=== PATIENT | male | born 1990 | race Caucasian/White ===

== ENCOUNTER 2023-09-12 10:16 | Emergency (ER) | payer OTHER, SELFPAY ==
[2023-09-12 10:21] VITALS: BP 136/76; PULSE 97; RESP 18; TEMP 36.6; O2SAT 100; BMI 29.6
[2023-09-12] MEDS: KETOROLAC TROMETHAMINE 60 MG/2 ML VIAL IM (10:35)
--- NOTE | 2023-09-12 10:35 | ED.BACK1 ---
HPI - Back Pain/Injury General Chief Complaint: Back Pain/Injury Stated Complaint: BACK PAIN SEVERAL INJURIES Time Seen by Provider: 09/12/23 10:22 Source: patient Mode of arrival: walk-in Limitations: no limitations History of Present Illness HPI Narrative: 33-year-old male presents for ongoing low back pain. He has had it for years. He states he has a bulging disc at L4. He has been having trouble getting into see a primary care doctor and [facility] He had an appointment today but it was canceled. No new injury and it does not seem to radiate. His states that sometimes she feels lumps under his skin. Related Data Previous Rx's Medication Instructions Recorded etodolac 400 mg tablet 400 mg PO Q8H PRN pain #20 tabs 09/12/23 methocarbamol 750 mg tablet 750 mg PO Q8H PRN pain #20 tabs 09/12/23 Allergies Allergy/AdvReac Type Severity Reaction Status Date / Time pneumococcal vaccine Allergy Unknown Verified 09/12/23 10:21 Review of Systems ROS Narrative A ten point review of systems is negative except as noted above. Exam Narrative Exam Narrative: Nurses note and vital signs reviewed and patient is not hypoxic. General: The patient appears well and in no apparent distress. Patient appears uncomfortable Skin: Warm, dry, no pallor noted. There is no rash noted. Head: Normocephalic, atraumatic Eye: Normal conjunctiva, no drainage Ears, Nose, Mouth, and Throat: oral mucosa is moist. Nares patent. Cardiovascular: Regular Rate and Rhythm Respiratory: Patient is in no distress, no accessory muscle use, lungs are clear to auscultation, no wheezing, rales or rhonchi Back: No bruise rash or erythema. Palpation does not show any discrete cysts or nodules. He has palpable areas of the muscle which he and his describe as the lumps. GI: Soft and nontender Musculoskeletal: The patient has no evidence of calf tenderness, no pitting edema, symmetrical pulses noted bilaterally Neurological: A&O, normal speech Psychiatric: Cooperative Constitutional Vital Signs, click to edit/add: Last Vital Signs Temp 97.8 F 09/12/23 10:21 Pulse 97 H 09/12/23 10:21 Resp 18 09/12/23 10:21 BP 136/76 09/12/23 10:21 Pulse Ox 100 09/12/23 10:21 O2 Del Method Room Air 09/12/23 10:21 Course Vital Signs Vital signs: Vital Signs Temperature 97.8 F 09/12/23 10:21 Pulse Rate 97 H 09/12/23 10:21 Respiratory Rate 18 09/12/23 10:21 Blood Pressure 136/76 09/12/23 10:21 Pulse Oximetry 100 09/12/23 10:21 Oxygen Delivery Method Room Air 09/12/23 10:21 Temperature 97.8 F 09/12/23 10:21 Pulse Rate 97 H 09/12/23 10:21 Respiratory Rate 18 09/12/23 10:21 Blood Pressure 136/76 09/12/23 10:21 Pulse Oximetry 100 09/12/23 10:21 Oxygen Delivery Method Room Air 09/12/23 10:21 MDM - Back Pain/Injury MDM Narrative Medical decision making narrative: He will be treated symptomatically and was given referral to PCP. He does not require emergent imaging. Treatment diagnosis and follow-up were discussed with the patient. Differential Diagnosis Differential diagnosis: Likely strain of lumbar region and other (Degenerative disc disease) Discharge Plan Discharge Chief Complaint: Back Pain/Injury Clinical Impression: Low back pain Patient Disposition: Home, Self-Care Time of Disposition Decision: 10:33 Condition: Good Mode of Transportation: Private Vehicle Prescriptions / Home Meds: New etodolac 400 mg tablet 400 mg PO Q8H PRN (Reason: pain) Qty: 20 0RF methocarbamol 750 mg tablet 750 mg PO Q8H PRN (Reason: pain) Qty: 20 0RF Instructions: Acute Low Back Pain (ED) Stand Alone Forms: Portal Instructions
== END 2023-09-12 10:39 | disposition home or self-care (01) ==
LOC: ER 10:47
PROVIDERS: Emergency Provider Emergency Medicine
DX: M54.50 Low back pain, unspecified (principal)
CPT/HCPCS: 96372; 99284; J1885

== ENCOUNTER 2023-12-01 15:19 | Observation (INO) | payer MEDICAID, SELFPAY ==
[2023-12-01 15:32] VITALS: BP 132/88; PULSE 101; TEMP 36.6; O2SAT 98; BMI 31.9
--- NOTE | 2023-12-01 15:55 | CT_ITS ---
[place] [id number] Patient Name: JANINA PEÑA MRN: [id number] date: 1990 Sex: M Assigned Patient Location: ER Current Patient Location: Accession/Order Number: [id number] Exam Date: 12/01/2023 16:17 Report Date: 12/01/2023 16:50 At the request of: RUFINO STOVER Procedure: CT lumbar spine wo con EXAM: CT lumbar spine wo con HISTORY: Chronic back pain. COMPARISON: None. TECHNIQUE: Axial CT scans of the lumbar spine were obtained without contrast. MPR images were obtained. Dose reduction techniques were achieved by using: automated exposure control and/or adjustment of mA and /or kV according to patient size and/or use of iterative reconstruction technique. FINDINGS: From T12 to L3, no abnormality. 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 Either limbus vertebra versus an old nonunion fracture of the left paramedian anterior aspect of the L4 inferior endplate. Mild posterior disc bulge and slightly decreased disc height are present. At L4-L5, a small right paracentral posterior disc protrusion. Visualized SI joints appear normal. The visualized retroperitoneum shows no adenopathy. 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 Either L4 limbus vertebra versus an old nonunion fracture of the left paramedian anterior aspect of the L4 inferior endplate. At L4-L5, a small right paracentral posterior disc protrusion. Electronically authenticated by: BRENT FELIX Date: 12/01/2023 16:50
[2023-12-01] MEDS: HYDROMORPHONE HCL 0.5 MG/0.5 ML SYRINGE IV ×2 (16:12→17:18)
[2023-12-01] MEDS: DIAZEPAM 5 MG TABLET PO (16:12)
[2023-12-01] MEDS: KETOROLAC TROMETHAMINE 30 MG/ML VIAL 15 MG IVP (16:13)
--- NOTE | 2023-12-01 16:17 | ED.BACK1 ---
HPI HPI - Back Pain/Injury General Chief Complaint: Back Pain/Injury Stated Complaint: Back Pain Time Seen by Provider: 12/01/23 15:46 Source: patient and family () Mode of arrival: Wheelchair Limitations: no limitations History of Present Illness HPI Narrative: 3-year-old male presents to the emergency department with his for complaint of low back pain. This has been an ongoing problem for the patient. This has been more so since September and over the past 5 days to where he has not been able to get out of bed. Locating pain throughout the lumbar spine. He has some mild discomfort in his legs, numbness, tingling in his great toes. Does feel some mild numbness in his legs. He attempted to get out of bed today and when he bore weight, the pain markedly increased to where his legs felt like they buckled. He did have a CT scan performed in March 2023 showing central canal narrowing at L4-5. He was told in September and that there was an L3 fracture. Denies any fever, history of IV drug use, motor or sensory changes, loss of bowel or bladder control, saddle anesthesias. Quality:?as above Severity:?severe Timing:?ongoing, worsening Context: Normal setting and activity? Modifying factors:?pain worse with movement. Associated symptoms: as above Related Data Home Medications ?Medication ?Instructions ?Recorded ?Confirmed cyclobenzaprine 5 mg tablet 5 mg PO BID 12/01/23 12/01/23 gabapentin 300 mg capsule 300 mg PO BID 12/01/23 12/01/23 paroxetine HCl 10 mg tablet 20 mg PO DAILY 12/01/23 12/01/23 prednisone 20 mg tablet 40 mg PO BID 12/01/23 12/01/23 trazodone 50 mg tablet 50 mg PO BEDTIME 12/01/23 12/01/23 Allergies Allergy/AdvReac Type Severity Reaction Status Date / Time pneumococcal vaccine Allergy Unknown Verified 09/12/23 10:21 Opioid HPI Opioid Management Most Recent Opioid Data: Last Pain Scale 5 09/12/23 10:25 Last MAR Pain Assessment 12/01/23 17:18 Review of Systems ROS Narrative CONST: Denies fever, chills GI: Denies abd pain, nausea, loss of bowel control : Denies loss of bladder control, hematuria MS: + myalgias, back pain.? Denies arthralgia SKIN: Denies color change, swelling NEURO: Denies numbness, paresthesias, weakness Exam Narrative Exam Narrative: Vital signs noted Nurses notes reviewed CONST: Nontoxic, uncomfortable appearing, well nourished, in no distress.? No diaphoresis.?? HENT: normocephalic, atraumatic, CV: 2+ palpable DP pulses bilat GI: soft, nontender : no CVA tenderness MS: No identifiable spinous process or paraspinal muscle tenderness throughout L-S region.? Locates pain throughout the lumbar spine. + increase in pain with SLE bilaterally. No tenderness over the SI joint.? There is no discoloration, edema, crepitus, instability, step off.? DF, PF, hallux DF equal and strong bilat NEURO: sensory intact, 2+ Patella and Achilles reflexes SKIN: no rash, erythema, warm, dry PSYCHIATRIC: normal mood, affect Constitutional Vital Signs, click to edit/add: Last Vital Signs Temp 97.8 F 12/01/23 15:32 Pulse 101 H 12/01/23 15:32 Resp 18 12/01/23 15:32 BP 132/88 12/01/23 15:32 Pulse Ox 98 12/01/23 15:32 O2 Del Method Room Air 12/01/23 15:32 Course Consultations Consultation #1: Dr. Lindsey who will be on consult for spine. Requests MRI in AM Time: 17:39 Consultation #2: Patient discussed with Dr. Mcgovern who is agreeable with admission. Time: 17:53 Vital Signs Vital signs: Vital Signs Temperature 97.8 F 12/01/23 15:32 Pulse Rate 101 H 12/01/23 15:32 Respiratory Rate 18 12/01/23 15:32 Blood Pressure 132/88 12/01/23 15:32 Pulse Oximetry 98 12/01/23 15:32 Oxygen Delivery Method Room Air 12/01/23 15:32 Temperature 97.8 F 12/01/23 15:32 Pulse Rate 101 H 12/01/23 15:32 Respiratory Rate 18 12/01/23 15:32 Blood Pressure 132/88 12/01/23 15:32 Pulse Oximetry 98 12/01/23 15:32 Oxygen Delivery Method Room Air 12/01/23 15:32 MDM - Back Pain/Injury MDM Narrative Medical decision making narrative: This is a pleasant 33-year-old gentleman who presents to the emergency department with complaint of back pain. Locating pain in the lumbar region. Has had some radiation, numbness. Having numbness and tingling in his great toes. Ongoing back problems. Had CT scan showing pars defects, fracture in March 2023. Progressively worsening since September, has not been able to work. Over the past 6 to 7 days has not been able to get out of bed. Attempted to get out of bed today and when he bore weight on his legs, the pain markedly increased and his legs buckled. Denies any fever, history of IV drug use, loss of bowel or bladder control, saddle anesthesias. On arrival, afebrile, vital signs stable. On exam, nontoxic, uncomfortable appearing patient in no gross distress. No appreciable tenderness on exam, however with any movement of his lower extremities, upper torso, pain increased. Dorsiflexion, plantarflexion, hallux dorsiflexion strong and equal bilaterally. Sensory intact. 2+ palpable dorsalis pedal pulses present. Achilles and patellar reflexes are intact. Pain treated with 0.5 mg of Dilaudid, p.o. Valium, IV Toradol. He did get some relief, but attempted to get up to go to CAT scan when pain shot back up again. 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 Either L4 limbus vertebra versus an old nonunion fracture of the left paramedian anterior aspect of the L4 inferior endplate. At L4-L5, a small right paracentral posterior disc protrusion. Electronically authenticated by: BRENT FELIX Date: 12/01/2023 16:50 Favor intractable pain, impaired mobility and LDLs Cauda equina less likely based on no presence of red flags Acute fracture less likely based on history and physical With intractable pain, difficulty, impaired activities of daily living, plan will be to admit patient to the hospital. Consulted spine and hospitalist who are agreeable with admission. Plan will be for MRI in the morning, suggest PT evaluation as well. Disposition ? The patient was admitted, observation status. Condition at time of disposition: stable Discussed with patient and family results, plan, and disposition.? PLEASE NOTE: Portions of the medical record may have been produced using electronic retail tire sales manager and may contain errors with respect to translation of words which may not have been identified prior to finalization of the chart. Imaging Data CT lumbar spine: Attestation: I have reviewed the pertinent imaging results. 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 Either L4 limbus vertebra versus an old nonunion fracture of the left paramedian anterior aspect of the L4 inferior endplate. At L4-L5, a small right paracentral posterior disc protrusion. Electronically authenticated by: BRENT FELIX Date: 12/01/2023 16:50 Discharge Plan Discharge Chief Complaint: Back Pain/Injury Clinical Impression: Impaired mobility and ADLs, Intractable low back pain Patient Disposition: Admitted as Observation Time of Disposition Decision: 17:56 Condition: Good
[2023-12-01 18:12] VITALS: BP 124/81; PULSE 76; O2SAT 98
[2023-12-01 18:37] VITALS: BP 124/81; PULSE 76; TEMP 36.2; O2SAT 98; BMI 32.0
[2023-12-01 18:40] VITALS: BP 127/85
--- OUTSIDE RECORDS SUMMARY | 2023-12-01 18:40 | XMS_ITS | CCD ---
Author Organization [facility] Care Team Providers Care Brand Executive Name Role Phone SEN ROTH Unavailable UnavailABHINAV Flood Unavailable Unavailable SEN ROTH Unavailable UnavailABEBE Oseguera Unavailable Unavailable SEN ROTH Unavailable UnavailABHINAV Flood Unavailable Unavailable SEN ROTH Unavailable UnavailSOREN Rodas Unavailable Unavailable STEENHOFF RADHA Admitting Unavailable SELF, REFERRED Referring Unavailable [facility] Care Unavailable BALDWIN, NOVEMBER L Attending Unavailable DENNYNovember Surgeon Unavailable [place] Procedure Practitioner Unavailab STEVEN Galvan Admitting Unavailable STEVEN ALVES Attending Unavailable [facility] Unavailable SELF, REFERRED Referring Unavailable STEYOUNG RADHA Admitting Unavailable CLAIRE SEXTONOTHY Attending Unavailable [facility] Unavailable SELF, REFERRED Referring Unavailable Madelyn Monaco Attending Unavailable Joy PABON, Melany oBateng Attending Unavailable [place] Attending UnavailMD Brett Astudillo Attending Unadanielle LYNCHJOB COUNSELOR, Tena Joy Attending Mahogany ARTIE Patel Attending Unavailable NO PCP, NO PCP Primary Care Unavailable NO PCP, NO PCP Primary Care Unavailable EVER VILLAREAL Attending Unavailable EVER VILLAREAL Referring Unavailable NO PCP, NO PCP Primary Care Unavailable NO PCP, NO PCP Primary Care Unavailable NO PCP, NO PCP Primary Care Unavailable Allergies Allergy Classification Reported Allergen(s) Allergy Type Date of Onset Reaction(s) Facility (1 source) Meperidine Drug Allergy 9 [facility] Repository (1 source) Nalbuphine Drug Allergy 9 [facility] Repository (1 source) PNUEMONIA VACINE; Translations: [PNUEMONIA VACINE] Propensity to adverse reactions (disorder) 9 [facility] Repository (1 source) pneumococcal vaccines; Translations: [pneumococcal vaccines] Propensity to adverse reactions to drug (disorder) [facility] Repository (1 source) Pneumovax 23; Translations: [Pneumovax 23] Propensity to adverse reactions to drug (disorder) [facility] Repository (2 sources) Pneumococcal vaccine; Translations: [PNEUMOCOCCAL 23-LOS PS VACCINE] Drug Allergy 2 [facility] Repository Problems Active Problems Problem Classification Problem Date Documented Da te Episodic/Chronic Abdominal pain (1 source) Generalized abdominal pain; Translations: [Generalized abdominal pain] Onset: 11-25-2017 Episodic Nausea and vomiting (1 source) Nausea with vomiting, unspecified; Translations: [Nausea with vomiting, unspecified] Onset: 11-25-2017 Episodic Other and unspecified benign neoplasm (1 source) Benign lipomatous neoplasm of skin and subcutaneous tissue of trunk; Translations: [Benign lipomatous neoplasm of skin and subcutaneous tissue of trunk] Onset: 11-29-2023 Episodic Other gastrointestinal disorders (1 source) Diarrhea, unspecified; Translations: [Diarrhea, unspecified] Onset: 11-25-2017 Episodic Other nervous system disorders (1 source) Other chronic pain; Translations: [Other chronic pain] Onset: 11-29-2023 Chronic Unclassified (1 source) Other specified disorders of teeth and supporting structures; Translations: [Other specified disorders of teeth and supporting structures] Onset: 05-01-2017 Unclassified (1 source) Mass Onset: 11-29-2023 Unclassified (1 source) Low back pain, unspecified; Translations: [Low back pain, unspecified] Onset: 11-29-2023 Past or Other Problems Problem Classification Problem Date Documented Da te Episodic/Chronic Disorders of teeth and jaw (1 source) Dental caries, unspecified; Translations: [Dental caries, unspecified] Onset: 08-04-2017 Episodic Spondylosis; intervertebral disc disorders; other back problems (4 sources) Sciatica, right side; Translations: [Sciatica, left side] Onset: 08-03-2023 Episodic Results Test Name Value Interpretation Reference Range Facility XR SPINE LUMBAR 2 OR 3 VWSon 08-03-2023 XR SPINE LUMBAR 2 OR 3 VWS XR SPINE LUMBAR 2 OR 3 VWS XR SPINE LUMBAR 2 OR 3 VWS 08/03/2023 11:31 AM INDICATION: pain COMPARISON: Lumbar spine radiographs 05/13/2015 TECHNIQUE: 3 views of the lumbar spine were obtained. FINDINGS: There are 5 lumbar-type nonrib-bearing vertebrae. Vertebral body heights are well-maintained. There is mild degenerative disc disease. 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 Redemonstration of likely pars defects at L4. There is mild approximately 4 mm of anterolisthesis of L4 on L5. 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 Finalized by Last Flores DO on 08/03/2023 11:40 AM Normal [facility] .UA Microscp Aon 04-30-2022 UA RBC Quant 0 /HPF Normal 0-5 [facility] Comment on above: Performed By: #### . Urinalysis Microscopic Auto ####[address] [place] [address] UA WBC Quant 0 /HPF Normal 0-5 [facility] Comment on above: Performed By: #### . Urinalysis Microscopic Auto ####[address] [place] [address] .eGFRon 04-30-2022 GFR/1.73 sq M.predicted MDRD (S/P/Bld) [Vol rate/Area] mL/min/{1.73_m2} Normal >=60 [facility] Comment on above: Order Comment: Order added by Discern rule Result Comment: [facility] have implemented the eGFR calculation approach that does not have a coefficient for race and that conforms to the NKF-ASN Task Force Recommendations. Stages of Chronic Kidney Disease GFR Stage 3a Mild to moderate loss of kidney function 59 to 45 Stage 3b Moderate to severe loss of kidney function 44 to 33 Stage 4 Severe loss of kidney function 29 to 15 Stage 5 Kidney failure Less than 15 GFR calculated using the CKD-Epi Creatinine Equation (2020): eGFR = 142 X min(SCr/?, 1)? X max(SCr /?, 1)-1.200 X 0.9938Age X 1.012 [if female] Abbreviations/Units: eGFR (estimated glomerular filtration rate) = mL/min/1.73 m2 SCr (standardized serum creatinine) = mg/dL ? = 0.7 (females) or 0.9 (males) ? = -0.241 (females) or -0.302 (males) min = indicates the minimum of SCr/? or 1 max = indicates the maximum of SCr/? or 1 Age = years Performed By: #### E GFR ####[address] [address] Basic Metabolic Profileon Creatinine [Mass/Vol] 0.91 mg/dL Normal 0.61-1.24 [facility] Comment on above: Performed By: #### C [id number] ####[address] [address] Urea nitrogen [Mass/Vol] 10 mg/dL Normal 8-26 [facility] Comment on above: Performed By: #### C [id number] ####[address] [address] Urea nitrogen/Creatinine [Mass ratio] 11.0 mg/mg Normal 10.0-20.0 [facility] Comment on above: Performed By: #### C [id number] ####[address] [address] Anion gap [Moles/Vol] 10 mmol/L Normal 7-17 [facility] Comment on above: Performed By: #### C [id number] ####[address] [address] Calcium [Mass/Vol] 8.9 mg/dL Normal 8.5-10.3 [facility] Comment on above: Performed By: #### C [id number] ####[address] [address] Chloride [Moles/Vol] 107 mmol/L Normal 98-110 [facility] Comment on above: Performed By: #### C [id number] ####[address] [address] CO2 [Moles/Vol] 27 mmol/L Normal 22-32 [facility] Comment on above: Performed By: #### C [id number] ####[address] [address] Glucose [Mass/Vol] 102 mg/dL High 70-99 [facility] Comment on above: Performed By: #### C [id number] ####[address] [address] Potassium [Moles/Vol] 4.2 mmol/L Normal 3.4-4.8 [facility] Comment on above: Performed By: #### C [id number] ####[address] [address] Sodium [Moles/Vol] 140 mmol/L Normal 133-142 [facility] Comment on above: Performed By: #### C [id number] ####[address] [address] CBC w/ Diffon 04-30-2022 Erythrocyte distribution width (RBC) [Ratio] 13.0 % Normal 11.6-14.8 [facility] Comment on above: Performed By: #### C BC ####[address] [address] Hematocrit (Bld) [Volume fraction] 45.2 % Normal 41.0-53.0 [facility] Comment on above: Performed By: #### C BC ####[address] [address] Hemoglobin (Bld) [Mass/Vol] 15.5 g/dL Normal 13.5-17.5 [facility] Comment on above: Performed By: #### C BC ####[address] [address] MCH (RBC) [Entitic mass] 31.7 pg Normal 27.0-35.0 [facility] Comment on above: Performed By: #### C BC ####[address] [address] MCHC 34.4 % Normal 31.0-37.0 [facility] Comment on above: Performed By: #### C BC ####[id number] MCV (RBC) [Entitic vol] 92.2 fL Normal 80.0-100.0 [facility] Comment on above: Performed By: #### C BC ####[id number] Platelet 237 x10*3/mcL Normal 150-350 [facility] Comment on above: Performed By: #### C BC ####[address] [address] Platelet mean volume (Bld) [Entitic vol] 8.0 fL Normal 6.7-10.6 [facility] Comment on above: Performed By: #### C BC ####[address] [address] RBC 4.90 x10*6/mcL Normal 4.30-5.80 [facility] Comment on above: Performed By: #### C BC ####[address] [address] WBC 7.2 x10*3/mcL Normal 4.5-11.0 [facility] Comment on above: Performed By: #### C BC ####[address] [address] Diff Autoon 04-30-2022 Baso Absolute 0.0 x10*3/mcL Normal 0.0-0.2 [facility] Comment on above: Performed By: #### . Automated Diff ####[address] [address] Basophils/100 WBC (Bld) 0.4 % Normal 0.0-1.2 [facility] Comment on above: Performed By: #### . Automated Diff ####[address] [address] Eos Absolute 0.2 x10*3/mcL Normal 0.0-0.4 [facility] Comment on above: Performed By: #### . Automated Diff ####[address] [address] Eosinophils/100 WBC (Bld) 2.7 % Normal 0.0-6.1 [facility] Comment on above: Performed By: #### . Automated Diff ####[address] [address] Lymph Absolute 1.4 x10*3/mcL Normal 1.0-4.8 [facility] Comment on above: Performed By: #### . Automated Diff ####[address] [address] Lymphocytes/100 WBC (Bld) 19.7 % Low 27.2-40.8 [facility] Comment on above: Performed By: #### . Automated Diff ####[address] [address] [place] Absolute 0.7 x10*3/mcL Normal 0.3-1.1 [facility] Comment on above: Performed By: #### . Automated Diff ####[address] [address] Monocytes/100 WBC (Bld) 9.3 % Normal 4.7-13.9 [facility] Comment on above: Performed By: #### . Automated Diff ####[address] [address] Neutro Absolute 4.9 x10*3/mcL Normal 1.8-7.7 [facility] Comment on above: Performed By: #### . Automated Diff ####[address] [address] Neutro Auto 67.9 % Normal 47.2-70.8 [facility] Comment on above: Performed By: #### . Automated Diff ####[facility] [place] [address] ED Clinical Summaryon 2021 ED Clinical Summary [facility] [address] [place] [address] ED Clinical Summary Person Information Name: Janina Silva II [place] Age: 31 Years : 1990 Sex: Male PCP: Marital Status: Single Race: White Ethnicity: Not or Language: [place] Visit Reason: Abdominal pain; Abdominal pain Acuity: 3 Enc Type: Emergency Med Service: Emergency Medicine Arrival: 04/30/2022 06:01:53 Discharge: 04/30/2022 09:31:00 LOS: 000 03:30 Checkin: 04/30/2022 06:01:53 Checkout: 04/30/2022 09:31:00 Dispo Type: Home or Self Care Address: [address] [place] [address] Provider Notes: History of Present Illness Patient is a 28 years old male presented emergency with left lower quad abdominal pain. ?Patient reports that he has history of diverticulitis. ?Reports that?he started the last few hours having left lower quad abdominal pain 5/10 intensity. ?Patient also reports that he has some nausea. ?Denies any vomiting. ?No diarrhea or constipation. Review of Systems As reviewed in the HPI. All other systems reviewed are negative or normal. Physical Exam CONSTITUTIONAL: [no apparent distress, well appearing] SKIN: [warm, dry, no jaundice, hives or petechiae] EYES: [pupils are equally round, extraocular movements intact without nystagmus, clear conjunctiva, non-icteric sclera] HENT: [normocephalic, atraumatic, moist mucus membranes, oropharynx clear without exudates] NECK: [Nontender and supple with no nuchal rigidity, no lymphadenopathy, full range of motion] PULMONARY: [clear to auscultation without wheezes, rhonchi, or rales, normal excursion, no accessory muscle use and no stridor] CARDIOVASCULAR: [regular rate, rhythm, normal S1 and S2. No appreciated murmurs. Strong radial pulses with intact distal perfusion] GASTROINTESTINAL: Left lower quadrant abdominal tenderness. GENITOURINARY: [No costovertebral angle tenderness to palpation] LYMPHATICS: [no edema in lower extremities, no lymphadenopathy] MUSCULOSKELETAL: [Extremities are nontender to palpation and have no gross deformity, no edema, redness, or swelling] NEUROLOGIC: [alert and oriented x 3, GCS 15, normal mentation and speech. Moves all extremities x 4 without motor or sensory deficit, gait is stable without ataxia] PSYCHIATRIC: [normal mood and affect, thought process is clear and linear] Diagnosis: 1:Abdominal pain Problems Active No Chronic Problems Smoking Status: Smoking Status 10 or more cigarettes (1/2 pack or more)/day in last 30 days Functional Status: Sensory Deficits: History of Falls: Mobility Assistance Prior to Admission: ADLs: Current Level of Assistance for Self-Care/Mobility: Cognitive Status: Allergies Pneumovax 23 (Rash) pneumococcal vaccines (Hives) Laboratory or Other Results This Visit (last charted value for your 04/30/2022 visit) Hematology 04/30/2022 6:25 AM WBC: 7.2 x10 RBC: 4.90 x10 Neutro Auto: 67.9 % -- Normal range between ( 47.2 and 70.8 ) Lymph Auto: 19.7 % -- Normal range between ( 27.2 and 40.8 ) A[place]ac Auto: 9.3 % -- Normal range between ( 4.7 and 13.9 ) Eos Auto: 2.7 % -- Normal range between ( 0.0 and 6.1 ) Basophil Auto: 0.4 % -- Normal range between ( 0.0 and 1.2 ) Baso Absolute: 0.0 x10 MCV: 92.2 fL -- Normal range between ( 80.0 and 100.0 ) MCHC: 34.4 % -- Normal range between ( 31.0 and 37.0 ) Lymph Absolute: 1.4 x10 Hct: 45.2 % -- Normal range between ( 41.0 and 53.0 ) [place]ac Absolute: 0.7 x10 MCH: 31.7 pg -- Normal range between ( 27.0 and 35.0 ) Neutro Absolute: 4.9 x10 Hgb: 15.5 g/dL -- Normal range between ( 13.5 and 17.5 ) Mean Platelet Volume: 8.0 fL -- Normal range between ( 6.7 and 10.6 ) Platelet: 237 x10 Eos Absolute: 0.2 x10 RDW: 13.0 % -- Normal range between ( 11.6 and 14.8 ) Urinalysis 04/30/2022 7:27 AM UA Color: Colorless UA Urobilinogen: Normal mg/dL UA Bili: Negative UA Ketones: Negative mg/dL UA Leukocyte Esterase: Negative UA Nitrite: Negative UA Glucose: Normal mg/dL UA Protein: Negative mg/dL UA Blood: Negative UA Spec Grav: 1.019 -- Normal range between ( 1.003 and 1.035 ) UA pH: 6.0 UA Clarity: Clear UA Source: Clean Catch UA WBC Quant: 0 /HPF -- Normal range between ( 0 and 5 ) UA RBC Quant: 0 /HPF -- Normal range between ( 0 and 5 ) Chemistry 04/30/2022 6:25 AM Creatinine Lvl: 0.91 mg/dL -- Normal range between ( 0.61 and 1.24 ) BUN: 10 mg/dL -- Normal range between ( 8 and 26 ) Glucose Lvl: 102 mg/dL -- Normal range between ( 70 and 99 ) Potassium Lvl: 4.2 mmol/L -- Normal range between ( 3.4 and 4.8 ) AST: 16 IU/L -- Normal range between ( 15 and 41 ) ALT: 17 IU/L -- Normal range between ( 17 and 63 ) Sodium Lvl: 140 mmol/L -- Normal range between ( 133 and 142 ) Lipase Lvl: 37 IU/L -- Normal range between ( 22 and 51 ) Bili Indirect: 0.5 mg/dL -- Normal (more content not included)... Normal [facility] ED Note-Physicianon 04-30-20 ED Note-Physician 31-year-old seen her e today chief complaint of abdominal pain. Patient seen here by the night staff physician. Signed out to me pending CT study. The scan of the abdomen pelvis is negative. Urinalysis negative. Patient discharged home nonspecific abdominal pain follow-up with his primary care provider return to the ED if pain continues beyond 12 hours. Electronically signed by Jerry KRISHNAMURTHY DO, Fran Loomis 04/30/22 09:06 EDT Normal [facility] ED Note-Physician Chief Complaint Patient complains of abdominal pain. History of Present Illness Patient is a 28 years old male presented emergency with left lower quad abdominal pain. Patient reports that he has history of diverticulitis. Reports that he started the last few hours having left lower quad abdominal pain 5/10 intensity. Patient also reports that he has some nausea. Denies any vomiting. No diarrhea or constipation. Review of Systems As reviewed in the HPI. All other systems reviewed are negative or normal. Physical Exam CONSTITUTIONAL: [no apparent distress, well appearing] SKIN: [warm, dry, no jaundice, hives or petechiae] EYES: [pupils are equally round, extraocular movements intact without nystagmus, clear conjunctiva, non-icteric sclera] HENT: [normocephalic, atraumatic, moist mucus membranes, oropharynx clear without exudates] NECK: [Nontender and supple with no nuchal rigidity, no lymphadenopathy, full range of motion] PULMONARY: [clear to auscultation without wheezes, rhonchi, or rales, normal excursion, no accessory muscle use and no stridor] CARDIOVASCULAR: [regular rate, rhythm, normal S1 and S2. No appreciated murmurs. Strong radial pulses with intact distal perfusion] GASTROINTESTINAL: Left lower quadrant abdominal tenderness. GENITOURINARY: [No costovertebral angle tenderness to palpation] LYMPHATICS: [no edema in lower extremities, no lymphadenopathy] MUSCULOSKELETAL: [Extremities are nontender to palpation and have no gross deformity, no edema, redness, or swelling] NEUROLOGIC: [alert and oriented x 3, GCS 15, normal mentation and speech. Moves all extremities x 4 without motor or sensory deficit, gait is stable without ataxia] PSYCHIATRIC: [normal mood and affect, thought process is clear and linear] Vitals & Measurements T: 36.4 ?C (Oral) HR: 76 (Peripheral) RR: 16 BP: 122/80 SpO2: 99% HT: 172.7 cm WT: 83.1 kg (Dosing) Additional Vitals No qualifying data available. Procedure No qualifying data available. ASA Documentation Medical Decision Making Patient seen eval emergency for abdominal pain. Patient has history of diverticulosis per him. Patient lab work all done and the initial lab work reviewed. The rest of the lab work is not back. Patient was signed out to Dr. Edwards please review his note for further information regarding patient CT results and rest of the lab work.. Assessment/Plan 1. Abdominal pain Orders: Basic Metabolic Profile CT Abdomen Pelvis w/ IV Contrast Hepatic Function Panel Urinalysis with Culture, if indicated Refresh vitals and sections below: Problem List/Past Medical History Ongoing No chronic problems Historical No qualifying data Procedure/Surgical History left shoulder REMOVAL OF TONSILS Medications Inpatient Omnipaque 350, 100 mL, IV Contrast, Once Home albuterol 90 mcg/inh inhalation aerosol, 2 puffs, Inhale, q6hr, PRN, Not taking diclofenac sodium 75 mg oral delayed release tablet, 75 mg= 1 tabs, Oral, BID, Not taking Flonase 50 mcg/inh nasal spray, 1 sprays, Nasal, BID, Not taking Allergies Pneumovax 23 (Rash) pneumococcal vaccines (Hives) Social History Alcohol Current, Beer, 1-2 times per month Substance Abuse Denies All Tobacco 10 or more cigarettes (1/2 pack or more)/day in last 30 days Use:. E-Cigarettes Lab Results Automated Hematology LATEST RESULTS HISTORICAL RESULTS WBC 04/30/22 06:25 7.2 01/18/22 9.3 RBC 04/30/22 06:25 4.90 01/18/22 5.13 Hgb 04/30/22 06:25 15.5 01/18/22 16.6 Hct 04/30/22 06:25 45.2 01/18/22 48.0 MCV 04/30/22 06:25 92.2 01/18/22 93.7 MCH 04/30/22 06:25 31.7 01/18/22 32.4 MCHC 04/30/22 06:25 34.4 01/18/22 34.6 RDW 04/30/22 06:25 13.0 01/18/22 14.3 Platelet 04/30/22 06:25 237 01/18/22 256 Mean Platelet Volume 04/30/22 06:25 8.0 01/18/22 8.6 Neutro Auto 04/30/22 06:25 67.9 01/18/22 70.9 High Lymph Auto 04/30/22 06:25 19.7 Low 01/18/22 18.7 Low [place]ac Auto 04/30/22 06:25 9.3 01/18/22 6.3 Eos Auto 04/30/22 06:25 2.7 01/18/22 3.7 Basophil Auto 04/30/22 06:25 0.4 01/18/22 0.4 Neutro Absolute 04/30/22 06:25 4.9 01/18/22 6.6 Lymph Absolute 04/30/22 06:25 1.4 01/18/22 1.7 [place] Absolute 04/30/22 06:25 0.7 01/18/22 0.6 Eos Absolute 04/30/22 06:25 0.2 01/18/22 0.3 Baso Absolute 04/30/22 06:25 0.0 01/18/22 0.0 Routine Chemistry LATEST RESULTS HISTORICAL RESULTS Sodium Lvl 04/30/22 06:25 140 01/18/22 137 Potassium Lvl 04/30/22 06:25 4.2 01/18/22 3.8 Chloride 04/30/22 06:25 107 01/18/22 106 CO2 04/30/22 06:25 27 01/18/22 24 Anion Gap 04/30/22 06:25 10 01/18/22 11 Glucose Lvl 04/30/22 06:25 102 High 01/18/22 123 High Calcium Lvl 04/30/22 06:25 8.9 01/18/22 9.0 Lipase Lvl 04/30/22 06:25 37 01/18/22 30 Diagnostic Results Electronically signed by (more content not included)... Normal [facility] Hep Func Panelon 04-30-2022 Albumin [Mass/Vol] 4.2 g/dL Normal 3.2-4.9 [facility] Comment on above: Performed By: #### L IVER ####[address] [place] [address] Alk Phos 65 IU/L Normal 32-91 [facility] Comment on above: Performed By: #### L IVER ####[address] [place] [address] ALT [Catalytic activity/Vol] 17 U/L Normal 17-63 [facility] Comment on above: Performed By: #### L IVER ####[address] [address] AST [Catalytic activity/Vol] 16 U/L Normal 15-41 [facility] Comment on above: Performed By: #### L IVER ####[address] [address] Bili Direct 0.1 mg/dL Normal 0.1-0.5 [facility] Comment on above: Performed By: #### L IVER ####[address] [address] Bili Indirect 0.5 mg/dL Normal 0.0-1.0 [facility] Comment on above: Performed By: #### L IVER ####[address] [address] Bili Total 0.6 mg/dL Normal 0.3-1.2 [facility] Comment on above: Performed By: #### L IVER ####[address] [address] Protein [Mass/Vol] 6.7 g/dL Normal 6.5-8.1 [facility] Comment on above: Performed By: #### L IVER ####[address] [address] Lipaseon 04-30-2022 Lipase Lvl 37 IU/L Normal 22-51 [facility] Comment on above: Performed By: #### L IP ####[address] [address] UA w Culture if Indon 2021 Color (U) Colorless Normal [facility] Comment on above: Performed By: #### U CI ####[address] [address] Ketones Ql (U) Negative Normal Negative [facility] Comment on above: Performed By: #### U CI ####[address] [address] UA Blood Negative Normal Negative [facility] Comment on above: Performed By: #### U CI ####[address] [place] [address] UA Clarity Clear Normal [facility] Comment on above: Performed By: #### U CI ####[address] [place] [address] UA Glucose Normal Normal Negative [facility] Comment on above: Performed By: #### U CI ####[address] [place] [address] UA Leukocyte Esterase Negative Normal Negative [facility] Comment on above: Performed By: #### U CI ####[address] [place] [address] UA Nitrite Negative Normal Negative [facility] Comment on above: Performed By: #### U CI ####[address] [place] [address] UA pH 6.0 Normal 4.5 - 7.8 [facility] Comment on above: Performed By: #### U CI ####[address] [place] [address] UA Protein Negative Normal Negative [facility] Comment on above: Performed By: #### U CI ####[address] [place] [address] UA Source Clean Catch Normal [facility] Comment on above: Performed By: #### U CI ####[address] [address] UA Spec Grav 1.019 Normal 1.003-1.035 [facility] Comment on above: Performed By: #### U CI ####[address] [address] UA Urobilinogen Normal Normal 0.2 - 1.0 [facility] Comment on above: Performed By: #### U CI ####[address] [address] Urobilinogen (U) [Mass/Vol] Negative Normal Negative [facility] Comment on above: Performed By: #### U CI ####[address] [address] .UA Microscp Aon 01-18-2022 UA Mucus Present Abnormal Absent [facility] Comment on above: Performed By: #### C [id number] #### [address] [address] UA RBC Quant 0 /HPF Normal 0-5 [facility] Comment on above: Performed By: #### C [id number] #### [address] [address] UA Squepi Cells Quant <1 Normal 0-29 [facility] Comment on above: Performed By: #### C [id number] #### [address] [address] UA WBC Quant 1 /HPF Normal 0-5 [facility] Comment on above: Performed By: #### C [id number] #### [place] [id number] .eGFRon 01-18-2022 GFR/1.73 sq M.predicted MDRD (S/P/Bld) [Vol rate/Area] mL/min/{1.73_m2} Normal >=60 [facility] Comment on above: Result Comment: [facility] have implemented the eGFR calculation approach that does not have a coefficient for race and that conforms to the NKF-ASN Task Force Recommendations. Stages of Chronic Kidney Disease GFR Stage 3a Mild to moderate loss of kidney function 59 to 45 Stage 3b Moderate to severe loss of kidney function 44 to 33 Stage 4 Severe loss of kidney function 29 to 15 Stage 5 Kidney failure Less than 15 GFR calculated using the CKD-Epi Creatinine Equation (2020): eGFR = 142 X min(SCr/?, 1)? X max(SCr /?, 1)-1.200 X 0.9938Age X 1.012 [if female] Abbreviations/Units: eGFR (estimated glomerular filtration rate) = mL/min/1.73 m2 SCr (standardized serum creatinine) = mg/dL ? = 0.7 (females) or 0.9 (males) ? = -0.241 (females) or -0.302 (males) min = indicates the minimum of SCr/? or 1 max = indicates the maximum of SCr/? or 1 Age = years Performed By: #### E GFR ####[place] [address] CBC w/ Diffon 01-18-2022 Erythrocyte distribution width (RBC) [Ratio] 14.3 % Normal 11.6-14.8 [facility] Comment on above: Performed By: #### C BC ####[place] [id number] Hematocrit (Bld) [Volume fraction] 48.0 % Normal 41.0-53.0 [facility] Comment on above: Performed By: #### C BC ####[place] [id number] Hemoglobin (Bld) [Mass/Vol] 16.6 g/dL Normal 13.5-17.5 [facility] Comment on above: Performed By: #### C BC ####[place] [id number] MCH (RBC) [Entitic mass] 32.4 pg Normal 27.0-35.0 [facility] Comment on above: Performed By: #### C BC ####[place] [id number] MCHC 34.6 % Normal 31.0-37.0 [facility] Comment on above: Performed By: #### C BC ####[place] [id number] MCV (RBC) [Entitic vol] 93.7 fL Normal 80.0-100.0 [facility] Comment on above: Performed By: #### C BC ####[place] [id number] Platelet 256 x10*3/mcL Normal 150-350 [facility] Comment on above: Performed By: #### C BC ####[place] [id number] Platelet mean volume (Bld) [Entitic vol] 8.6 fL Normal 6.7-10.6 [facility] Comment on above: Performed By: #### C BC ####[address] [address] RBC 5.13 x10*6/mcL Normal 4.30-5.80 [facility] Comment on above: Performed By: #### C BC ####[address] [address] WBC 9.3 x10*3/mcL Normal 4.5-11.0 [facility] Comment on above: Performed By: #### C BC ####[address] [address] CMPon 01-18-2022 Albumin [Mass/Vol] 4.4 g/dL Normal 3.2-4.9 [facility] Comment on above: Performed By: #### C OMP ####[address] [address] Albumin/Globulin [Mass ratio] 1.6 {ratio} Normal 1.1-2.2 [facility] Comment on above: Performed By: #### C OMP ####[address] [address] Alk Phos 63 IU/L Normal 32-91 [facility] Comment on above: Performed By: #### C OMP ####[address] [address] ALT [Catalytic activity/Vol] 24 U/L Normal 17-63 [facility] Comment on above: Performed By: #### C OMP ####[address] [address] Anion gap [Moles/Vol] 11 mmol/L Normal 7-17 [facility] Comment on above: Performed By: #### C OMP ####[address] [address] AST [Catalytic activity/Vol] 16 U/L Normal 15-41 [facility] Comment on above: Performed By: #### C OMP ####[address] [address] Bili Total 0.2 mg/dL Low 0.3-1.2 [facility] Comment on above: Performed By: #### C OMP ####[address] [address] Calcium [Mass/Vol] 9.0 mg/dL Normal 8.5-10.3 [facility] Comment on above: Performed By: #### C OMP ####[address] [address] Chloride [Moles/Vol] 106 mmol/L Normal 98-110 [facility] Comment on above: Performed By: #### C OMP ####[address] [address] CO2 [Moles/Vol] 24 mmol/L Normal 22-32 [facility] Comment on above: Performed By: #### C OMP ####[address] [address] Creatinine [Mass/Vol] 0.83 mg/dL Normal 0.61-1.24 [facility] Comment on above: Performed By: #### C OMP ####[address] [address] Glucose [Mass/Vol] 123 mg/dL High 70-99 [facility] Comment on above: Performed By: #### C OMP ####[address] [address] Potassium [Moles/Vol] 3.8 mmol/L Normal 3.4-4.8 [facility] Comment on above: Performed By: #### C OMP ####[address] [address] Protein [Mass/Vol] 7.2 g/dL Normal 6.5-8.1 [facility] Comment on above: Performed By: #### C OMP ####[address] [address] Sodium [Moles/Vol] 137 mmol/L Normal 133-142 [facility] Comment on above: Performed By: #### C OMP ####[address] [address] Urea nitrogen [Mass/Vol] 13 mg/dL Normal 8-26 [facility] Comment on above: Performed By: #### C OMP ####[address] [address] Urea nitrogen/Creatinine [Mass ratio] 15.7 mg/mg Normal 10.0-20.0 [facility] Comment on above: Performed By: #### C OMP ####[address] [address] Diff Autoon 01-18-2022 Baso Absolute 0.0 x10*3/mcL Normal 0.0-0.2 [facility] Comment on above: Performed By: #### . Automated Diff ####[address] [address] Basophils/100 WBC (Bld) 0.4 % Normal 0.0-1.2 [facility] Comment on above: Performed By: #### . Automated Diff ####[address] [address] Eos Absolute 0.3 x10*3/mcL Normal 0.0-0.4 [facility] Comment on above: Performed By: #### . Automated Diff ####[address] [address] Eosinophils/100 WBC (Bld) 3.7 % Normal 0.0-6.1 [facility] Comment on above: Performed By: #### . Automated Diff ####[address] [address] Lymph Absolute 1.7 x10*3/mcL Normal 1.0-4.8 [facility] Comment on above: Performed By: #### . Automated Diff ####[address] [address] Lymphocytes/100 WBC (Bld) 18.7 % Low 27.2-40.8 [facility] Comment on above: Performed By: #### . Automated Diff ####[address] [address] Arenac Absolute 0.6 x10*3/mcL Normal 0.3-1.1 [facility] Comment on above: Performed By: #### . Automated Diff ####[address] [address] Monocytes/100 WBC (Bld) 6.3 % Normal 4.7-13.9 [facility] Comment on above: Performed By: #### . Automated Diff ####[address] [address] Neutro Absolute 6.6 x10*3/mcL Normal 1.8-7.7 [facility] Comment on above: Performed By: #### . Automated Diff ####[address] [address] Neutro Auto 70.9 % High 47.2-70.8 [facility] Comment on above: Performed By: #### . Automated Diff ####[address] [address] ED Clinical Summaryon 2021 ED Clinical Summary [address] [id number] ED Clinical Summary Person Information Name: Janina Silva II Bea/[facility] Age: 31 Years : 1990 Sex: Male PCP: Marital Status: Single Race: White Ethnicity: Not or Language: [place] Visit Reason: Abdominal pain; Abdominal pain Acuity: 3 Enc Type: Emergency Med Service: Emergency Medicine Arrival: 01/18/2022 08:27:33 Discharge: 01/18/2022 10:24:00 LOS: 000 01:57 Checkin: 01/18/2022 08:27:33 Checkout: 01/18/2022 10:24:00 Dispo Type: Home or Self Care Address: [address] [place], [place] [id number] Provider Notes: History of Present Illness This is a nontoxic-appearing 31-year-old male who drove himself to the emergency department?for evaluation of?abdominal pain described as sharp and cramping?starting on late Tuesday evening, the patient reports that pain has remained constant but it has waxed and waned in intensity,?when he woke up this morning around 3 AM the pain was feeling worse and now associated with nausea?he reports that?he also had an episode?of sweats?unsure if he had a fever; reports that he has had previous episodes of acute diverticulitis last was 3 years ago?after evaluation in an emergency department in the [facility] area; the patient?has not had any?diarrhea constipation melena or hematochezia, has had no known infectious disease exposures or recent travel.? The patient has been trying to use ibuprofen to help with the?symptoms,?which has not helped.? Patient was concerned?due to the worsening pain prompting him to come to the emergency department for further evaluation.? No recent falls traumas or car accidents. Review of Systems CONSTITUTIONAL: Positive for subjective fever/sweats, no fatigue. NEURO: NO ACUTE HEADACHES OR WEAKNESS HEENT: NO NASAL CONGESTION OR EYE PAIN/DRAINAGE CARDIAC: NO CHEST PAIN OR HEART PALPITATIONS PULMONARY: NO SHORTNESS OF BREATHING OR ACUTE BREATHING DIFFICULTY ABDOMEN: Positive for?abdominal pain, positive for nausea. : NO URINARY FREQUENCY OR DYSURIA; no testicular pain. MUSCULOSKELETAL: No acute neck or back pain. SKIN: NO SKIN RASHES OR UNUSUAL BRUISING Physical Exam CONSTITUTIONAL: well appearing in no acute distress SKIN: Warm, dry, and intact without rash EYES: bilaterally sclera white and conjunctiva clear HENT: Normocephalic, atraumatic, moist mucus membranes NECK: no obvious swelling, normal range of motion PULMONARY: normal chest rise and fall, no respiratory distress or stridor. ?Anterior posterior lung sounds are clear. CARDIOVASCULAR: regular rate and rhythm, distal extremities are warm and well perfused no edema. ?Bilateral pedal pulses 2+ and equal. GASTROINSTESTINAL: Max tenderness right mid abdomen right upper abdomen, mild tenderness periumbilical region left lower quadrant; no palpable masses,?no peritoneal signs guarding or rigidity abdomen is soft. ?Bowel sounds x4 normal. NEUROLOGIC: normal speech, moves all extremities MUSCULOSKELETAL: Normal inspection to the back no ecchymosis erythema swelling. ?No midline thoracic or lumbar tenderness. ?Bilateral upper lower extremities?no swelling, no gross deformities, atraumatic PSYCHIATRIC: normal mood, normal speech Diagnosis: Acute mesenteric adenitis Problems Active No Chronic Problems Smoking Status: Smoking Status 10 or more cigarettes (1/2 pack or more)/day in last 30 days Functional Status: Sensory Deficits: History of Falls: Mobility Assistance Prior to Admission: ADLs: Current Level of Assistance for Self-Care/Mobility: Cognitive Status: Allergies Pneumovax 23 (Rash) pneumococcal vaccines (Hives) Laboratory or Other Results This Visit (last charted value for your 01/18/2022 visit) Hematology 01/18/2022 8:42 AM WBC: 9.3 x10 RBC: 5.13 x10 Neutro Auto: 70.9 % -- Normal range between ( 47.2 and 70.8 ) Lymph Auto: 18.7 % -- Normal range between ( 27.2 and 40.8 ) Arenac Auto: 6.3 % -- Normal range between ( 4.7 and 13.9 ) Eos Auto: 3.7 % -- Normal range between ( 0.0 and 6.1 ) Basophil Auto: 0.4 % -- Normal range between ( 0.0 and 1.2 ) Baso Absolute: 0.0 x10 MCV: 93.7 fL -- Normal range between ( 80.0 and 100.0 ) MCHC: 34.6 % -- Normal range between ( 31.0 and 37.0 ) Lymph Absolute: 1.7 x10 Hct: 48.0 % -- Normal range between ( 41.0 and 53.0 ) Arenac Absolute: 0.6 x10 MCH: 32.4 pg -- Normal range between ( 27.0 and 35.0 ) Neutro Absolute: 6.6 x10 Hgb: 16.6 g/dL -- Normal range between ( 13.5 and 17.5 ) Mean Platelet Volume: 8.6 fL -- Normal range between ( 6.7 and 10.6 ) Platelet: 256 x10 Eos Absolute: 0.3 x10 RDW: 14.3 % -- Normal range between ( 11.6 and 14.8 ) Urinalysis 01/18/2022 8:42 AM UA Color: Yellow UA Urobilinogen: Normal mg/dL UA Bili: Negative UA Ketones: Negative mg/dL UA Leukocyte Esterase: Negative U (more content not included)... Normal [facility] ED Note-Physicianon 01-19-20 ED Note-Physician Chief Complaint abdominal pain that started a few days ago, worsening, nausea History of Present Illness This is a nontoxic-appearing 31-year-old male who drove himself to the emergency department for evaluation of abdominal pain described as sharp and cramping starting on late Tuesday evening, the patient reports that pain has remained constant but it has waxed and waned in intensity, when he woke up this morning around 3 AM the pain was feeling worse and now associated with nausea he reports that he also had an episode of sweats unsure if he had a fever; reports that he has had previous episodes of acute diverticulitis last was 3 years ago after evaluation in an emergency department in the [facility]; the patient has not had any diarrhea constipation melena or hematochezia, has had no known infectious disease exposures or recent travel. The patient has been trying to use ibuprofen to help with the symptoms, which has not helped. Patient was concerned due to the worsening pain prompting him to come to the emergency department for further evaluation. No recent falls traumas or car accidents. Review of Systems CONSTITUTIONAL: Positive for subjective fever/sweats, no fatigue. NEURO: NO ACUTE HEADACHES OR WEAKNESS HEENT: NO NASAL CONGESTION OR EYE PAIN/DRAINAGE CARDIAC: NO CHEST PAIN OR HEART PALPITATIONS PULMONARY: NO SHORTNESS OF BREATHING OR ACUTE BREATHING DIFFICULTY ABDOMEN: Positive for abdominal pain, positive for nausea. : NO URINARY FREQUENCY OR DYSURIA; no testicular pain. MUSCULOSKELETAL: No acute neck or back pain. SKIN: NO SKIN RASHES OR UNUSUAL BRUISING Physical Exam CONSTITUTIONAL: well appearing in no acute distress SKIN: Warm, dry, and intact without rash EYES: bilaterally sclera white and conjunctiva clear HENT: Normocephalic, atraumatic, moist mucus membranes NECK: no obvious swelling, normal range of motion PULMONARY: normal chest rise and fall, no respiratory distress or stridor. Anterior posterior lung sounds are clear. CARDIOVASCULAR: regular rate and rhythm, distal extremities are warm and well perfused no edema. Bilateral pedal pulses 2+ and equal. GASTROINSTESTINAL: Max tenderness right mid abdomen right upper abdomen, mild tenderness periumbilical region left lower quadrant; no palpable masses, no peritoneal signs guarding or rigidity abdomen is soft. Bowel sounds x4 normal. NEUROLOGIC: normal speech, moves all extremities MUSCULOSKELETAL: Normal inspection to the back no ecchymosis erythema swelling. No midline thoracic or lumbar tenderness. Bilateral upper lower extremities no swelling, no gross deformities, atraumatic PSYCHIATRIC: normal mood, normal speech Vitals & Measurements T: 36.5 ?C (Oral) HR: 100 (Peripheral) RR: 16 BP: 126/87 SpO2: 96% HT: 172.7 cm WT: 84.2 kg (Dosing) Additional Vitals No qualifying data available. Procedure No qualifying data available. ASA Documentation Medical Decision Making The patient was given a liter of normal saline, 20 mg IV push Pepcid, 4 mg IV push Zofran, 15 mg IV push Toradol to help with pain symptoms on arrival. I did review the patient's OARRS report while he was in the department. Lab work returned CBC is negative for acute abnormalities, CMP negative for acute abnormalities, normal lipase. Urinalysis shows no concerning features for acute urinary tract infection, shows mild dehydration with specific gravity of 1.029. CT abdomen pelvis with IV contrast shows interval enlargement of multiple right lower quadrant mesenteric and previous lymph nodes to be correlated clinically with possible mesenteric adenitis. On reevaluation the patient reports his pain is improved but he still having some pain; I did offer him stronger pain medication in the department however the patient drove himself to the emergency department does not have any other drivers at this time to take him home; we did discuss all of the diagnostic test findings, he feels comfortable going home he reports that he does have a family physician but has not followed with them for a few years, I recommended that he calls the office and schedules a follow-up appointment however I did provide him with the physician referral line information if needed. I recommended ibuprofen 600 for mild to moderate pain; I did provide a short fill prescription for Percocet pain medication for severe pain with appropriate narcotic warnings. The patient feels comfortable going home we discussed reasons to return to the emergency department as stated on the discharge paperwork and he verbalized understanding he is discharged ambulatory in no acute distress with stable vital signs. Assessment/Plan Abdominal pain (Complaint of) Acute mesenteric adenitis Ordered: ibuprofen, 1 tabs, Oral, q8hr, PRN, X 10 days, # 30 tabs, 0 Refill(s), 01/28/22 10:11:00 EDT, Pharmacy: [facility] [id number] oxyCODONE-acetaminophe n, 1 tabs, Oral, q6hr, PRN, X 3 days, # 12 tabs, 0 Refill(s), 01/21/22 10:11:00 EDT, Pharmacy: (more content not included)... Normal [facility] Lipaseon 01-18-2022 Lipase Lvl 30 IU/L Normal 22-51 [facility] Comment on above: Performed By: #### L IP ####[address] [address] UA w Culture if Indon 2021 Color (U) Yellow Normal [facility] Comment on above: Performed By: #### U CI ####[address] [address] Ketones Ql (U) Negative Normal Negative [facility] Comment on above: Performed By: #### U CI ####[address] [address] UA Blood 1+ Abnormal Negative [facility] Comment on above: Performed By: #### U CI ####[address] [place] [address] UA Clarity Clear Normal [facility] Comment on above: Performed By: #### U CI ####[address] [address] UA Glucose Normal Normal Negative [facility] Comment on above: Performed By: #### U CI ####[address] [address] UA Leukocyte Esterase Negative Normal Negative [facility] Comment on above: Performed By: #### U CI ####[address] [address] UA Nitrite Negative Normal Negative [facility] Comment on above: Performed By: #### U CI ####[address] [address] UA pH 5.5 Normal 4.5 - 7.8 [facility] Comment on above: Performed By: #### U CI ####[address] [address] UA Protein 20 mg/dL Normal Negative [facility] Comment on above: Performed By: #### U CI ####[address] [address] UA Source Clean Catch Normal [facility] Comment on above: Performed By: #### U CI ####[address] [address] UA Spec Grav 1.029 Normal 1.003-1.035 [facility] Comment on above: Performed By: #### U CI ####[address] [address] UA Urobilinogen Normal Normal 0.2 - 1.0 [facility] Comment on above: Performed By: #### U CI ####[address] [address] Urobilinogen (U) [Mass/Vol] Negative Normal Negative [facility] Comment on above: Performed By: #### U CI ####[address] [address] COV19 Rapidon 09-15-2021 Employed in healthcare? Unknown Normal [facility] Comment on above: Performed By: #### C D:[id number] ####[address] [address] Group care resident? No Normal [facility] Comment on above: Performed By: #### C [id number] ####[address] [address] In ICU? No Normal [facility] Comment on above: Performed By: #### C [id number] ####[address] [address] status? Not Applicable Normal [facility] Comment on above: Performed By: #### C [id number] ####[address] [address] Reason for Rapid Test COVID Exposure Normal [facility] Comment on above: Performed By: #### C D:[id number] ####[place] [address] [place] [address] SARS-CoV-2 (COVID-19) RNA ATRI+probe Ql (Unsp spec) Negative Normal Negative [facility] Comment on above: Result Comment: The 2019 novel coronavirus SARS-CoV-2 target nucleic acids are not detected. This test is for the detection of SARS-CoV-2 RNA. Positive results are indicative of active infection with SARS-CoV-2. Positive results do not rule out bacterial infection or co-infection with other viruses. Negative results should be treated as presumptive and, if inconsistent with clinical signs and symptoms or necessary for patient management, should be tested with an alternative molecular assay.Negative results do not preclude SARS-CoV-2 infection and should not be used as the sole basis for treatment or other patient management decisions. Clinical correlation with patient history and other diagnostic information is necessary to determine patient infection status. ADDITIONAL INFORMATION: Testing was performed using the ID NOW COVID-19 test by [employer], which has received Emergency Use Authorization (EUA) by the U.S. Food and Drug Administration. The [employer] ID NOW COVID-19 test performs best when patients are tested within the first 7 days of symptom onset. Results should be interpreted with caution for asymptomatic patients or those tested outside the 7 day target. Refer to CDC guidelines for further testing algorithms. Fact sheets for this Emergency Use Authorization (EUA) assay can be found at the following links: Fact Sheet for HealthCare Providers: https://www.fda.gov/media/996884/download Fact Sheet for Patients: https://www.fda.gov/media/444693/download Performed By: #### C D:[id number] ####[address] [address] SARS-CoV-2 (COVID-19) RNA ARTI+probe Ql (Unsp spec) No Normal [facility] Comment on above: Performed By: #### C [id number] ####[address] [address] SARS-CoV-2 (COVID-19) RNA ARTI+probe Ql (Unsp spec) Unknown Normal [facility] Comment on above: Performed By: #### C [id number] ####[place] [address] Symptomatic as defined by CDC? Yes Normal [facility] Comment on above: Performed By: #### C [id number] ####[place] [address] ED Clinical Summaryon 2021 ED [place] [address] ED Clinical Summary Person Information Name: Janina Silva II [facility] Age: 31 Years : 1990 Sex: Male PCP: Marital Status: Single Race: White Ethnicity: Not or Language: [place] Visit Reason: Cough; Throat pain - Adult; Throat pain Acuity: 4 Enc Type: Emergency Med Service: Emergency Medicine Arrival: 09/15/2021 06:47:41 Discharge: 09/15/2021 07:42:00 LOS: 000 00:55 Checkin: 09/15/2021 06:47:41 Checkout: 09/15/2021 07:42:00 Dispo Type: Home or Self Care Address: [address] [place] [address] Provider Notes: History of Present Illness Chief Complaint/History: Nasal congestion cough rhinorrhea mild sore throat Treatment DELIVERY DIRECTOR: OTC medications for symptom relief Pain level/description: Mild aching pain Location: HEENT Duration: [continuous] Alleviating Factors: Nothing Aggravating Factors: Nothing Pertinent Positives: See chief complaint Pertinent Negatives: Neck pain, lethargy, headache, confusion, vomiting ? This morning, he could not taste his coffee so he thought he should be screened for COVID-19. Review of Systems Review of systems otherwise fully reviewed and negative as pertains this complaint Physical Exam CONSTITUTIONAL: [well appearing in no acute distress] SKIN: [Warm, dry, and intact without rash] EYES: [extraocular movements are grossly intact, clear conjunctiva] HENT: [Normocephalic, atraumatic, moist mucus membranes] NECK: [no obvious swelling, normal range of motion] PULMONARY: [normal chest rise and fall, no respiratory distress or stridor CARDIOVASCULAR: [regular rate, distal extremities are warm and well perfused] GASTROINSTESTINAL: [nondistended, non-tender] GENITOURINARY: [deferred] NEUROLOGIC: [normal speech, moves all extremities] MUSCULOSKELETAL: [no gross deformities, atraumatic] PSYCHIATRIC: [normal mood and affect] Diagnosis: 1:URI (upper respiratory infection) Problems Active No Chronic Problems Smoking Status: Smoking Status 10 or more cigarettes (1/2 pack or more)/day in last 30 days Functional Status: Sensory Deficits: History of Falls: Mobility Assistance Prior to Admission: ADLs: Current Level of Assistance for Self-Care/Mobility: Cognitive Status: Allergies Pneumovax 23 (Rash) pneumococcal vaccines (Hives) Laboratory or Other Results This Visit (last charted value for your 09/15/2021 visit) Molecular 09/15/2021 6:59 AM SARS-CoV-2 RNA Detection: Negative Measurements: Height: Weight: 90 kg Blood Pressure: /87 mmHg BMI: Procedures No Procedures Documented Immunizations No Immunizations Documented This Visit Final Med List: Medications that have not changed Other Medications albuterol (albuterol 90 mcg/inh inhalation aerosol) 2 Puffs Inhale (breathe in) every 6 hours as needed shortness of breath or wheezing. Refills: 0. Last Dose: ___ diclofenac (diclofenac sodium 75 mg oral delayed release tablet) 1 Tabs Oral (given by mouth) 2 times a day. Refills: 0. Last Dose: ___ fluticasone nasal (Flonase 50 mcg/inh nasal spray) 1 Sprays Nasal (into the nose) 2 times a day. Refills: 0. Last Dose: ___ Other Medications albuterol (albuterol 90 mcg/inh inhalation aerosol) 2 Puffs Inhale (breathe in) every 6 hours as needed shortness of breath or wheezing. Refills: 0. diclofenac (diclofenac sodium 75 mg oral delayed release tablet) 1 Tabs Oral (given by mouth) 2 times a day. Refills: 0. fluticasone nasal (Flonase 50 mcg/inh nasal spray) 1 Sprays Nasal (into the nose) 2 times a day. Refills: 0. Care Team Members: Attending Physician: Heidy DELCID, Brett Hickman Consulting Physician: Referring Physician: Provider Role Assigned Unassigned Heidy DELCID, Brett Hickman ED Provider 09/15/2021 06:59:52 Grace Martínez ED Nurse 09/15/2021 07:19:10 Follow up: With: Address: When: Call the [facility] physician referral line [phone] , only if needed Discharge Orders: Discharge Patient 09/15/21 7:29:00 EST, Discharge to Home, Self, URI (upper respiratory infection) Return to Work/School 09/15/21 7:29:00 EST, 09/15/21 7:29:00 EST, COVID neg today. may return to work today or tomorrow, 09/15/21 7:29:00 EST, URI (upper respiratory infection) Patient Education Information: URI, Viral, No Abx (Adult) [facility] Poison Help line: . [facility] Hotline: [place] Tobacco Quit Line: [place], [place]) [address]: [phone] [place], [place]) [address]: [phone] [facility] [address] [place], [place]: [phone] Normal [facility] ED Note-Physicianon 09-15-19 ED Note-Physician Chief Complaint Pt reports he would like to be covid tested as he states he has symptoms today and family is positive. History of Present Illness Chief Complaint/History: Nasal congestion cough rhinorrhea mild sore throat Treatment DELIVERY DIRECTOR: OTC medications for symptom relief Pain level/description: Mild aching pain Location: HEENT Duration: [continuous] Alleviating Factors: Nothing Aggravating Factors: Nothing Pertinent Positives: See chief complaint Pertinent Negatives: Neck pain, lethargy, headache, confusion, vomiting This morning, he could not taste his coffee so he thought he should be screened for COVID-19. Review of Systems Review of systems otherwise fully reviewed and negative as pertains this complaint Physical Exam CONSTITUTIONAL: [well appearing in no acute distress] SKIN: [Warm, dry, and intact without rash] EYES: [extraocular movements are grossly intact, clear conjunctiva] HENT: [Normocephalic, atraumatic, moist mucus membranes] NECK: [no obvious swelling, normal range of motion] PULMONARY: [normal chest rise and fall, no respiratory distress or stridor CARDIOVASCULAR: [regular rate, distal extremities are warm and well perfused] GASTROINSTESTINAL: [nondistended, non-tender] GENITOURINARY: [deferred] NEUROLOGIC: [normal speech, moves all extremities] MUSCULOSKELETAL: [no gross deformities, atraumatic] PSYCHIATRIC: [normal mood and affect] Vitals & Measurements T: 36.4 ?C (Oral) HR: 94 (Peripheral) RR: 18 BP: 154/87 SpO2: 97% HT: 172.7 cm WT: 90 kg (Dosing) Additional Vitals No qualifying data available. Procedure No qualifying data available. ASA Documentation Medical Decision Making Covid negative. He can provide that result to his work and either go back today or tomorrow. Assessment/Plan URI Refresh vitals and sections below: Problem List/Past Medical History Ongoing No chronic problems Historical No qualifying data Procedure/Surgical History left shoulder REMOVAL OF TONSILS Medications Inpatient No active inpatient medications Home albuterol 90 mcg/inh inhalation aerosol, 2 puffs, Inhale, q6hr, PRN, Not taking diclofenac sodium 75 mg oral delayed release tablet, 75 mg= 1 tabs, Oral, BID, Not taking Flonase 50 mcg/inh nasal spray, 1 sprays, Nasal, BID, Not taking Allergies Pneumovax 23 (Rash) pneumococcal vaccines (Hives) Social History Alcohol Current, Beer, 1-2 times per month Substance Abuse Denies All Tobacco 10 or more cigarettes (1/2 pack or more)/day in last 30 days Use:. Cigarettes, 0.5 per day. Packs Lab Results Molecular LATEST RESULTS HISTORICAL RESULTS SARS-CoV-2 RNA Detection 09/15/21 06:59 Negative 04/08/21 Negative Diagnostic Results Electronically signed by Heidy DELCID Brettsuze Hickman 09/15/21 07:28 EST Normal [facility] Family Medicine Office/Clini c Noteon 06-16-2021 Family Medicine Office/Clinic Note Chief Complaint Pt stated he broke a tooth 5 days ago. Complaints of left upper mouth pain. Concerns for abscess History of Present Illness Janina Silva II is a 30 Years old Male who presents with tooth pain and drainage. Patient states that he broke his tooth about 5 days ago and an abscess started 2 days ago. The abscess started draining last night which helped to relieve the pain slightly. Rates his pain a 2/10 and it is more tender to touch. He has difficulty eating/chewing but no difficulty swallowing. Denies fever, chills, nausea, vomiting, diarrhea. Patient does not currently have a dentist in this area but states that he has multiple teeth that need looked at. List of dentists given to patient. Tylenol and Tylenol PM OTC for symptoms. Review of Systems General: The patient denies dizziness and headache HEENT: Denies rhinorrhea. Denies for ear pain Denies eye pain. Denies sore throat and sinus pain POSITIVE mouth pain due to broken tooth/tooth abscess Cardiovascular: No chest pain or Cardiac history Pulmonary: No shortness of breath, wheezing, cough GI: No nausea, vomiting or diarrhea Musculoskeletal: denies joint pain, back pain Physical Exam Vitals & Measurements T: 36.6 ?C (Oral) HR: 108 (Peripheral) RR: 16 BP: 136/83 SpO2: 97 HT: 172 cm WT: 93.5 kg WT: 93.5 kg (Dosing) BMI: 31.6 Eyes: no conjunctivitis or drainage Ears: TMs are flat, pearly-pascual, clear translucent. Both canals are without redness swelling or drainage Nose: no rhinitis seen Mouth: left upper incisor is broken with decay. The gum is red and swollen and very painful with purulent drainage. Sinuses: Negative for maxillary and frontal tenderness. Throat: is pink and moist without exudate or swelling Neck: no anterior cervical adenopathy present Chest: Breath sounds clear, even and unlabored. No wheezing, rales or rhonchi. Skin: left cheek reddened Additional Vitals No qualifying data available. Assessment/Plan 1. Dental abscess 1) Patient started to drink at least 8 glasses of non-caffeinated nonalcoholic beverages per day 2) Medication prescribed as documented. Penicillin V four times a day for 7 days. Recommended Ora Gel and Clove oil for the pain 3) Patient instructed to soften maritza wax and place over the tooth to keep the air out and reduce pain. 4) Patient instructed to take Ibuprofen 600-800 mg every 8 hours as needed for pain. 5 If not better and the next 4 or 5 days followup with PCP. See dentist RUSSEL Ordered: penicillin V potassium, 1 tabs, Oral, QID, X 7 days, # 28 tabs, 0 Refill(s), 06/23/21 11:26:00 [facility], [facility] [place] [id number] Medical Decision Making Chronic conditions NOT treated during this visit that affected my overall medical decision making: [] Treatment plans discussed but not opted for at this time: [] Prescribed medication that requires intensive monitoring for toxicity: [] I have reviewed the patient?s medication list for medication interactions/contraind ications and/or for upcoming procedures: [yes or no] Time Spent with the Patient I have personally spent [22] minutes on this date, directly related to today's patient visit, including pre and post visit work, for this date of service. Time listed does not include time spent on separately billable services. Physician Comments Reviewed assessment and plan as explained above and patient is agreeable. No questions upon discharge. Patient medical history reviewed, vital signs and nurses notes reviewed as documented. Problem List/Past Medical History Ongoing No chronic problems Historical No qualifying data Procedure/Surgical History left shoulder REMOVAL OF TONSILS Medications albuterol 90 mcg/inh inhalation aerosol, 2 puffs, Inhale, q6hr, PRN, Not taking diclofenac sodium 75 mg oral delayed release tablet, 75 mg= 1 tabs, Oral, BID, Not taking Flonase 50 mcg/inh nasal spray, 1 sprays, Nasal, BID, Not taking penicillin V potassium 500 mg oral tablet, 500 mg= 1 tabs, Oral, QID Allergies Pneumovax 23 (Rash) pneumococcal vaccines (Hives) Social History Alcohol Current, Beer, 1-2 times per month Substance Abuse Denies All Tobacco 10 or more cigarettes (1/2 pack or more)/day in last 30 days Use:. Immunizations Vaccine Date Status tetanus/diphth/pertuss (Tdap) adult/adol 07/26/2020 Given Electronically signed by Joy CHOWDHURY-ALLEN Melany Dempseybeth 06/16/21 11:40 EST Normal [facility] BASIC METABOLIC PANELon 08-08 Calcium [Mass/Vol] 8.9 mg/dL Normal 8.6-10.3 [facility] Comment on above: Performed By: #### 3 6901, 25083, 24601 #### [facility] [address] [facility] [place] [address], [facility] Chloride [Moles/Vol] 106 mmol/L Normal 98-107 [facility] Comment on above: Performed By: #### 3 6901, 84049, 42489 #### [facility] [address] [facility] [place] [address], [facility] CO2 [Moles/Vol] 24 mmol/L Normal 21-31 [facility] Comment on above: Performed By: #### 3 6901, 64145, 54962 #### [facility] [address] [place] [address], [facility] Creatinine [Mass/Vol] 1.00 mg/dL Normal 0.70-1.30 [facility] Comment on above: Performed By: #### 3 6901, 51257, 45405 #### [facility] [address] [place] [address], [facility] GFR/1.73 sq M predicted among blacks MDRD (S/P/Bld) [Vol rate/Area] mL/min/{1.73_m2} Normal >60 [facility] Comment on above: Performed By: #### 3 6901, 58083, 05232 #### [facility] [address] [place] [address], [facility] GFR/1.73 sq M predicted among non-blacks MDRD (S/P/Bld) [Vol rate/Area] mL/min/{1.73_m2} Normal >60 [facility] Comment on above: Performed By: #### 3 6901, 35376, 36414 #### [facility] [address] [place] [address], [facility] Glucose [Mass/Vol] 108 mg/dL High 70-100 [facility] Comment on above: Performed By: #### 3 6901, 90253, 37950 #### [facility] [address] [place] [address], [facility] Potassium [Moles/Vol] 4.1 mmol/L Normal 3.5-5.1 [facility] Comment on above: Performed By: #### 3 6911, 91848, 85230 #### [facility] [address] [place] [id number], [facility] Sodium [Moles/Vol] 134 mmol/L Low 136-145 [facility] Comment on above: Performed By: #### 3 6901, 24386, 32263 #### [facility] [address] [place] [id number], [facility] Urea nitrogen [Mass/Vol] 13 mg/dL Normal 7-25 [facility] Comment on above: Performed By: #### 3 6901, 19107, 15610 #### [facility] [address] [place] [id number], [facility] CBC W/DIFFon 08-20-2019 ABS BASOPHILS 0.0 10*3/uL Normal 0.0-0.2 [facility] Comment on above: Performed By: #### 5 0103 #### [facility] [address] [place] [address], [facility] ABS IMM GRANS 0.0 10*3/uL Normal 0.0-0.2 [facility] Comment on above: Performed By: #### 5 0103 #### [facility] [address] [place] [address], [facility] ABS NEUTROPHILS 8.4 10*3/uL High 1.6-7.6 [facility] Comment on above: Performed By: #### 5 0103 #### [facility] [address] [facility] [place] [address], [facility] Basophils/100 WBC (Bld) 0.4 % Normal 0.0-1.0 [facility] Comment on above: Performed By: #### 5 0103 #### [facility] [address] [facility] [place] [address], [facility] Eosinophils (Bld) [#/Vol] 0.1 10*3/uL Normal 0.0-0.5 [facility] Comment on above: Performed By: #### 5 0103 #### [facility] [address] [place] [address], [facility] Eosinophils/100 WBC (Bld) 0.6 % Normal 0.0-6.0 [facility] Comment on above: Performed By: #### 5 0103 #### [facility] [address] [facility] [place] [address], [facility] Erythrocyte distribution width (RBC) [Ratio] 13.3 % Normal 11.5-15.0 [facility] Comment on above: Performed By: #### 5 0103 #### [facility] [address] [facility] [place] [address], [facility] Hematocrit (Bld) [Volume fraction] 50.0 % Normal 39.0-50.0 [facility] Comment on above: Performed By: #### 5 0103 #### [facility] [address] Hemoglobin (Bld) [Mass/Vol] 16.6 g/dL Normal 13.0-17.0 [facility] Comment on above: Performed By: #### 5 0103 #### [facility] [address] [facility] [facility] [place] [address], [facility] IMMATURE GRANS 0.4 % Normal 0.0-1.0 [facility] Comment on above: Performed By: #### 5 0103 #### [facility] [address] [place] [address], [facility] Lymphocytes (Bld) [#/Vol] 1.6 10*3/uL Normal 1.2-4.0 [facility] Comment on above: Performed By: #### 5 3 #### [facility] [address] [place] [address], [facility] Lymphocytes/100 WBC (Bld) 14.4 % Low 20.0-45.0 [facility] Comment on above: Performed By: #### 5 0103 #### [facility] [address] [place] [address], [facility] MCH (RBC) [Entitic mass] 31.6 pg Normal 27.0-33.0 [facility] Comment on above: Performed By: #### 5 0103 #### [facility] [address] [facility] [place] [address], [facility] MCHC (RBC) [Mass/Vol] 33.2 g/dL Normal 32.0-35.0 [facility] Comment on above: Performed By: #### 5 0103 #### [facility] [address] [place] [address], [facility] MCV (RBC) [Entitic vol] 95.1 fL Normal 82.0-98.0 [facility] Comment on above: Performed By: #### 5 3 #### [facility] [address] [place] [address], [facility] Monocytes (Bld) [#/Vol] 1.1 10*3/uL High 0.1-1.0 [facility] Comment on above: Performed By: #### 5 0103 #### [facility] [address] [place] [address], [facility] MONOS 9.6 % Normal 5.0-12.0 [facility] Comment on above: Performed By: #### 5 0103 #### [facility] [address] [place] [address], [facility] Neutrophils/100 WBC (Bld) 74.6 % High 40.0-72.0 [facility] Comment on above: Performed By: #### 5 102 #### [facility] [address] [place] [id number], [facility] Nucleated RBC/100 WBC (Bld) [Ratio] 0 % Normal 0-0 [facility] Comment on above: Performed By: #### 5 010 #### [facility] [address] [place] [address], [facility] PLAT CNT 219 10*3/uL Normal 150-[address] [facility] Comment on above: Performed By: #### 5 102 #### [facility] [address] [place] [id number], [facility] RBC (Bld) [#/Vol] 5.26 10*6/uL Normal 4.20-5.70 [facility] Comment on above: Performed By: #### 5 102 #### [facility] [address] [place] [id number], [facility] WBC (Bld) [#/Vol] 11.23 10*3/uL High 4.00-10.60 [facility] Comment on above: Performed By: #### 5 102 #### [facility] [address] [place] [address], [facility] CT ABDOMEN AND PELVIS W IV C ONTRASTon 08-20-2019 CT ABDOMEN AND PELVIS W IV CONTRAST [facility] Department of Radiology [address] [place] [address] ======== Patient Name: JANINA SILVA : 1990 Sex: M Age: Race: White Pt. Location: [facility] Patient Status: E Ordered Date: 08/20/2019 4:05:00 PM Completed Date: 08/20/2019 04:50 PM Requesting Provider: RADHA SEXTON Attending Provider: RADHA SEXTON Report Copy To: Signs & Symptoms: Abdominal Pain(specify) History: See Comments Comments: R/O Appendicitis Exam: CT ABDOMEN AND PELVIS W IV CONTRAST ======== CT ABDOMEN AND PELVIS W IV CONTRAST 08/20/2019 4:50 PM SIGNS AND SYMPTOMS: Abdominal Pain(specify) TECHNOLOGIST COMMENTS: Diffuse abd pain with N/V x1 week. QUESTION FOR THE RADIOLOGIST: R/O Appendicitis PROTOCOL: Axial CT images of the abdomen/pelvis were obtained with IV contrast. CONTRAST: Contrast: OMNIPAQUE 350 (LOCM), 100 milliliter, Intravenous TECHNIQUE: Multidetector ct axial images of the abdomen and pelvis were obtained with IV contrast. Multiplanar reformats were performed and viewed on a separate workstation and reviewed to further define anatomy and possible pathology. Appropriate CT dose lowering techniques were utilized. COMPARISON: None. FINDINGS: Lower Chest: Within normal limits. ABDOMEN: Liver: Within normal limits. Bile Ducts: Normal caliber. Gallbladder: No calcified gallstones. Normal caliber wall. Pancreas: Within normal limits. Spleen: Within normal limits. Adrenals: Within normal limits. Kidneys: Within normal limits. Pelvis: Reproductive Organs: No pelvic masses. Ureters: Within normal limits. Bladder: Within normal limits. Bowel: Moderate diverticulosis throughout the left have the colon. In addition, there is moderate bowel wall thickening involving the descending colon at the splenic flexure with adjacent fat stranding. No perforation, abscess or obstruction. The appendix is unremarkable. Mesenteric Lymph Nodes: No enlarged mesenteric lymph nodes. Peritoneum: No ascites or free air, no fluid collection. Vessels: Atherosclerotic changes within normal limits. Retroperitoneum: Within normal limits. Abdominal Wall: Within normal limits. Bones: Within normal limits. IMPRESSION: Early acute diverticulitis descending colon. No perforation, abscess or obstruction. Electronically signed: Caleb Quinones. Transcribed by: [email or web address], User Resident: Electronically Signed by: CALEB QUINONES @ 08/20/2019 05:04 PM Normal [facility] Comment on above: Order Comment: R/O A ppendicitis LIPASE BLOODon 08-20-2019 Lipase [Catalytic activity/Vol] 14 Units/L Normal 11-82 [facility] Comment on above: Performed By: #### 3 9381, 22173, 49886 #### [facility] [address] [facility]. [address] LIVER BATTERYon 08-20-2019 Albumin [Mass/Vol] 4.1 g/dL Normal 3.5-5.7 [facility] Comment on above: Performed By: #### 3 1281, 57600, 31478 #### [facility] [address] [place] [address], [facility] ALKALINE PHOSPH 69 IU/L Normal 34-104 [facility] Comment on above: Performed By: #### 3 3321, 36388, 24215 #### [facility] [address] [facility] [facility] [place] [address], [facility] ALT [Catalytic activity/Vol] 16 U/L Normal 7-52 [facility] Comment on above: Performed By: #### 3 2691, 39301, 72135 #### [facility] [address] [place] [address], [place] AST [Catalytic activity/Vol] 14 U/L Normal 13-39 [facility] Comment on above: Performed By: #### 3 6901, 76565, 67979 #### [facility] [address] [place] [address], [place] Bilirubin [Mass/Vol] 0.5 mg/dL Normal 0.3-1.0 [facility] Comment on above: Performed By: #### 3 6901, 75234, 13574 #### [facility] [address] [place] [address], [place] Bilirubin.direct [Mass/Vol] 0.1 mg/dL Normal 0.0-0.2 [facility] Comment on above: Performed By: #### 3 6901, 56554, 05532 #### [facility] [address] [place] [address], [place] Protein [Mass/Vol] 6.4 g/dL Normal 6.0-8.3 [facility] Comment on above: Performed By: #### 3 6901, 21870, 78895 #### [facility] [address] [place] [address], [place] URINALYSIS REFLEXon 08-20-19 20 Appearance (U) CLEAR Normal CLEAR [facility] Comment on above: Order Comment: Crite shaka for reflexing a culture was not met. Please call the lab at [phone] within 24 hours of collection time if culture is needed Performed By: #### 3 0684 #### [facility] [address] [place] [address], [place] Bilirubin [Mass/Vol] Negative Normal NEGATIVE [facility] Comment on above: Order Comment: Crite shaka for reflexing a culture was not met. Please call the lab at [phone] within 24 hours of collection time if culture is needed Performed By: #### 3 4167 #### [facility] [address] [place] [address], [place] BLOOD Negative Normal NEGATIVE [facility] Comment on above: Order Comment: Crite shaka for reflexing a culture was not met. Please call the lab at [phone] within 24 hours of collection time if culture is needed Performed By: #### 3 0965 #### [facility] [address] [place] [address], [place] Color (U) STRAW Abnormal YELLOW [facility] Comment on above: Order Comment: Crite shaka for reflexing a culture was not met. Please call the lab at [phone] within 24 hours of collection time if culture is needed Performed By: #### 3 0965 #### [facility] [address] [place] [address], [place] Glucose [Mass/Vol] Negative Normal NEGATIVE [facility] Comment on above: Order Comment: Crite shaka for reflexing a culture was not met. Please call the lab at [phone] within 24 hours of collection time if culture is needed Performed By: #### 3 0965 #### [facility] [address] [place] [address], [place] KETONE TRACE Abnormal NEGATIVE [facility] Comment on above: Order Comment: Crite shaka for reflexing a culture was not met. Please call the lab at [phone] within 24 hours of collection time if culture is needed Performed By: #### 3 0965 #### [facility] [address] [place] [address], [place] LEUK LOURDES Negative Normal NEGATIVE [facility] Comment on above: Order Comment: Crite shaka for reflexing a culture was not met. Please call the lab at [phone] within 24 hours of collection time if culture is needed Performed By: #### 3 0965 #### [facility] [address] [place] [address], [place] MICRO NOT DONE Normal [facility] Comment on above: Order Comment: Crite shaka for reflexing a culture was not met. Please call the lab at [phone] within 24 hours of collection time if culture is needed Result Comment: Micr oscopics not performed on urines with negative chemical reactions unless requested in original order Performed By: #### 3 0965 #### [facility] [address] Nitrite Ql (U) Negative Normal NEGATIVE [facility] Comment on above: Order Comment: Crite shaka for reflexing a culture was not met. Please call the lab at [phone] within 24 hours of collection time if culture is needed Performed By: #### 3 0965 #### [facility] [address] [place] [address], [facility] pH (Bld) 6.0 Normal 5.0-8.0 [facility] Comment on above: Order Comment: Crite shaka for reflexing a culture was not met. Please call the lab at [phone] within 24 hours of collection time if culture is needed Performed By: #### 3 0965 #### [facility] [address] [place] [address], [facility] Protein (U) [Mass/Vol] Negative Normal NEGATIVE [facility] Comment on above: Order Comment: Crite shaka for reflexing a culture was not met. Please call the lab at [phone] within 24 hours of collection time if culture is needed Performed By: #### 3 0965 #### [facility] [address] SPEC GRAV 1.003 Low 1.015-1.[address] [facility] Comment on above: Order Comment: Crite shaka for reflexing a culture was not met. Please call the lab at [phone] within 24 hours of collection time if culture is needed Performed By: #### 3 0965 #### [facility] [address] BASIC METABOLIC PANELon 10-0 Calcium [Mass/Vol] 9.3 mg/dL Normal 8.6-10.3 [facility] Comment on above: Performed By: #### 0 0071 #### [facility] [address] [place] [address], [place] Chloride [Moles/Vol] 106 mmol/L Normal 98-107 [facility] Comment on above: Performed By: #### 0 0071 #### [facility] [address] [place] [address], [place] CO2 [Moles/Vol] 27 mmol/L Normal 21-31 [facility] Comment on above: Performed By: #### 0 0071 #### [facility] [address] [place] [address], [place] Creatinine [Mass/Vol] 1.04 mg/dL Normal 0.70-1.30 [facility] Comment on above: Performed By: #### 0 0071 #### [facility] [address] [place] [address], [place] GFR/1.73 sq M predicted among blacks MDRD (S/P/Bld) [Vol rate/Area] mL/min/{1.73_m2} Normal >60 [facility] Comment on above: Performed By: #### 0 0071 #### [facility] [address] [place] [address], [place] GFR/1.73 sq M predicted among non-blacks MDRD (S/P/Bld) [Vol rate/Area] mL/min/{1.73_m2} Normal >60 [facility] Comment on above: Performed By: #### 0 0071 #### [facility] [address] [place] [address], [place] Glucose [Mass/Vol] 116 mg/dL High 70-100 [facility] Comment on above: Performed By: #### 0 0071 #### [facility] [address] [place] [address], [place] Potassium [Moles/Vol] 3.9 mmol/L Normal 3.5-5.1 [facility] Comment on above: Performed By: #### 0 0071 #### [facility] 3000 [facility]. [address] Sodium [Moles/Vol] 137 mmol/L Normal 136-145 The [facility] Comment on above: Performed By: #### 0 0071 #### [facility] 3000 [facility]. [address] Urea nitrogen [Mass/Vol] 11 mg/dL Normal 7-25 [facility] Comment on above: Performed By: #### 0 0071 #### [facility] [address] [place] [address], [facility] CBC W/DIFFon 05-11-2019 ABS BASOPHILS 0.1 10*3/uL Normal 0.0-0.2 [facility] Comment on above: Performed By: #### 5 0103 #### [facility] 3000 [facility]. [address] ABS IMM GRANS 0.0 10*3/uL Normal 0.0-0.2 [facility] Comment on above: Performed By: #### 5 0103 #### [facility] [address] ABS NEUTROPHILS 5.7 10*3/uL Normal 1.6-7.6 The [facility] Comment on above: Performed By: #### 5 0103 #### [facility] [address] Basophils/100 WBC (Bld) 0.7 % Normal 0.0-1.0 [facility] Comment on above: Performed By: #### 5 3 #### [facility] [address] [place] [address], [facility] Eosinophils (Bld) [#/Vol] 0.1 10*3/uL Normal 0.0-0.5 [facility] Comment on above: Performed By: #### 5 0103 #### [facility] [address] [place] [address], [facility] Eosinophils/100 WBC (Bld) 1.3 % Normal 0.0-6.0 [facility] Comment on above: Performed By: #### 3 #### [facility] [address] [place] [address], [facility] Erythrocyte distribution width (RBC) [Ratio] 13.4 % Normal 11.5-15.0 [facility] Comment on above: Performed By: #### 3 #### [facility] [address] [address], [facility] Hematocrit (Bld) [Volume fraction] 48.3 % Normal 39.0-50.0 [facility] Comment on above: Performed By: #### 3 #### [facility] [address] [facility] [place] [place] [address], [facility] Hemoglobin (Bld) [Mass/Vol] 16.5 g/dL Normal 13.0-17.0 [facility] Comment on above: Performed By: #### 5 102 #### [facility] [address] [address], [facility] IMMATURE GRANS 0.4 % Normal 0.0-1.0 The [facility] Comment on above: Performed By: #### 5 3 #### [facility] [address] [address], [facility] Lymphocytes (Bld) [#/Vol] 1.6 10*3/uL Normal 1.2-4.0 [facility] Comment on above: Performed By: #### 5 3 #### [facility] [address] [place] [id number], [facility] Lymphocytes/100 WBC (Bld) 18.6 % Low 20.0-45.0 [facility] Comment on above: Performed By: #### 102 #### [facility] [address] [address], [facility] MCH (RBC) [Entitic mass] 32.9 pg Normal 27.0-33.0 [facility] Comment on above: Performed By: #### 5 3 #### [facility] [address] [facility] [place] [address], [facility] MCHC (RBC) [Mass/Vol] 34.2 g/dL Normal 32.0-35.0 [facility] Comment on above: Performed By: #### 3 #### [facility] [address] MCV (RBC) [Entitic vol] 96.2 fL Normal 82.0-98.0 [facility] Comment on above: Performed By: #### 5 102 #### [facility] 3000 [facility]. [address] Monocytes (Bld) [#/Vol] 0.9 10*3/uL Normal 0.1-1.0 [facility] Comment on above: Performed By: #### 5 102 #### [facility] [address] MONOS 11.2 % Normal 5.0-12.0 [facility] Comment on above: Performed By: #### 5 3 #### [facility] 3000 [facility]. [address] Neutrophils/100 WBC (Bld) 67.8 % Normal 40.0-72.0 [facility] Comment on above: Performed By: #### 5 3 #### [facility] [address] [place] [address], [facility] Nucleated RBC/100 WBC (Bld) [Ratio] 0 % Normal 0-0 [facility] Comment on above: Performed By: #### 5 3 #### [address] PLAT CNT 214 10*3/uL Normal 150-[address] [facility] Comment on above: Performed By: #### 5 0103 #### [facility] [address] RBC (Bld) [#/Vol] 5.02 10*6/uL Normal 4.20-5.70 [facility] Comment on above: Performed By: #### 5 0103 #### [facility] [address] [place] [address], [facility] WBC (Bld) [#/Vol] 8.43 10*3/uL Normal 4.00-10.60 [facility] Comment on above: Performed By: #### 5 0103 #### [address] BRAIN WO CONTRASTon 05-11 CT BRAIN WO CONTRAST [facility] Department of Radiology [address] [place] [id number] ======== Patient Name: JANINA SILVA : 1990 Sex: M Age: Race: White Pt. Location: [facility] Patient Status: E Ordered Date: 05/11/2019 11:30:00 AM Completed Date: 05/11/2019 12:07 PM Requesting Provider: BABAK BALDWIN Attending Provider: RADHA SEXTON Report Copy To: Signs & Symptoms: Dizziness(vertigo) History: See Comments Comments: R/O Bleed, NO Exam: CT BRAIN WO CONTRAST ======== CT BRAIN WO CONTRAST 05/11/2019 12:07 PM EDT SIGNS AND SYMPTOMS: Dizziness(vertigo) TECHNOLOGIST COMMENTS: dizziness lower ext weakness QUESTION FOR THE RADIOLOGIST: R/O Bleed, NO PROTOCOL: Axial CT images of the head were obtained without IV contrast. TECHNIQUE:Multi-detect or CT axial slices of the brain were obtained without IV contrast. Helical,sagittal, coronal, and 3-D reconstructions were performed and viewed on a separate workstation. COMPARISON: None. FINDINGS: There is no shift of the midline structures, acute intracranial bleeding, mass effects, or evidence of acute ischemia. The ventricular system is normal in size. The brainstem and the cerebellum are unremarkable. The visualized intraorbital contents, and the infratemporal soft tissues show no acute abnormality. The osseous structures in the skull base and the calvarium show no abnormality. Minimal mucoperiosteal thickening in the left maxillary sinus suggesting minimal chronic left maxillary sinus disease IMPRESSION: Normal noncontrasted CT brain. Minimal left Chronic maxillary sinus disease Electronically signed by:Juan Camarillo. Transcribed by: [id number], User Resident: Electronically Signed by: JUAN CAMARILLO @ 05/11/2019 12:30 PM Normal [facility] Comment on above: Order Comment: R/O THO Escobar Basic Metabolic Profon 11-25 (cont.) Normal [facility] Comment on above: Result Comment: Aver age GFR for 20-29 years old: 116 mL/min/1.73sq mChronic Kidney Disease: <60 mL/min/1.73sq mKidney failure: <15 mL/min/1.73sq meGFR calculated using average adult body mass. Additional eGFR calculator available at:http://www.Mirada.ePub Direct/multiple_crcl_2012.htmPerformed at [facility], [address] [place] [address] Anion gap 13 mmol/L Normal 9-17 [facility] Calcium 9.3 mg/dL Normal 8.6-10.4 [facility] Chloride 103 mmol/L Normal 98-107 [facility] CO2 27 mmol/L Normal 20-31 [facility] Creatinine 0.78 mg/dL Normal 0.70-1.20 [facility] eGFR (non-black) mL/min/{1.73_m2} Normal >60 [facility] Glucose mass conc 105 mg/dL High 70-99 [facility] Potassium molar conc 4.2 mmol/L Normal 3.7-5.3 [facility] Sodium 143 mmol/L Normal 135-144 [facility] Urea nitrogen 10 mg/dL Normal 6-20 [facility] BUN/CRE Ratio NOT REPORTED Normal 9-20 [facility] Staging: NOT REPORTED Normal [facility] CBC with Diffon 11-25-2017 Abs. Basophil 0.10 k/uL Normal 0.0-0.2 [facility] Comment on above: Result Comment: Perf ormed at [facility], [address] [place] [address] Abs.Neutrophil (Seg) 5.30 k/uL Normal 1.8-7.7 [facility] Basophils/100 WBC Auto (Bld) 1 % Normal 0-2 [facility] Eosinophils 0.40 10*3/uL Normal 0.0-0.4 [facility] Eosinophils/100 leukocytes 5 % High 1-4 [facility] Erythrocyte distribution width Auto Ratio (RBC) 13.5 % Normal 12.5-15.4 [facility] Erythrocytes (RBC) 5.23 10*6/uL Normal 4.5-5.9 [facility] Hematocrit (HCT) 49.7 % Normal 41-53 [facility] Hemoglobin mass conc (Bld) 17.0 g/dL Normal 13.5-17.5 [facility] Lymphocytes 2.20 10*3/uL Normal 1.0-4.8 [facility] Lymphocytes/100 leukocytes 25 % Normal 24-44 [facility] MCH 32.4 pg Normal 26-34 [facility] MCHC mass conc (RBC) 34.2 g/dL Normal 31-37 [facility] MCV 94.9 fL Normal 80-100 [facility] Monocytes 0.80 10*3/uL Normal 0.1-1.2 [facility] Monocytes/100 leukocytes 9 % Normal 2-11 [facility] Neutrophil (Seg) 60 % Normal 36-66 [facility] Platelet mean volume (PMV) 8.6 fL Normal 6.0-12.0 [facility] Platelets 253 10*3/uL Normal 140-450 [facility] WBC (Leukocytes) 8.8 10*3/uL Normal 3.5-11.0 [facility] Auto Diff Performed NOT REPORTED Normal [facility] Erythrocyte morphology NOT REPORTED Normal [facility] Erythrocytes (RBC) NOT REPORTED Normal [facility] Granulocytes/100 WBC (Bld) NOT REPORTED Normal 0.00-0.30 [facility] Immature granulocytes #/vol (Bld) NOT REPORTED Normal 0 [facility] Platelets NOT REPORTED Normal [facility] WBC Morphology NOT REPORTED Normal [facility] CT ABDOMEN PELVIS W IV CONTR Irma 11-25-2017 CT ABDOMEN PELVIS W IV CONTRAST EXAMINATION:CT OF THE ABDOMEN AND PELVIS WITH CONTRAST 11/25/2017 11:26 amTECHNIQUE:CT of the abdomen and pelvis was performed with the administration ofintravenous contrast. Multiplanar reformatted images are provided for review.Dose modulation, iterative reconstruction, and/or weight based adjustment ofthe mA/kV was utilized to reduce the radiation dose to as low as reasonablyachievable.C OMPARISON:None.HISTORY :ORDERING SYSTEM PROVIDED HISTORY: ABDOMINAL PAIN, RLQTECHNOLOGIST PROVIDED HISTORY:Additional Contrast?->NoneOrderin g Physician Provided Reason for Exam: RLQ pain, nausea, diarrhea,constipationA cuity: AcuteType of Exam: InitialFINDINGS:Lower Chest: Normal heart size. Lung bases clear.Organs: The liver, spleen, pancreas, adrenal glands kidneys and gallbladderappear unremarkable.GI/Bowel: No evidence of bowel obstruction or inflammation. Normal appendix.Pelvis: Bladder and prostate appear unremarkablePeritoneum /Retroperitoneum: Normal caliber abdominal aorta. No suspiciouslymphadenopa thy. No ascites or free air.Bones/Soft Tissues: No significant osseous abnormality.IMPRESSION : Unremarkable CT examination of the abdomen and pelvis with no evidence foracute process including normal appearing appendix.Interpreted by:TESHA Colonigned by:Elvia Su MD11/25/17inal result Normal [facility] ED Noteon 11-25-2017 HIM IP Note OR Scalehouse Attendant Normal [facility] HIM IP Note OR Scalehouse Attendant Normal [facility] ED Provider Noteon 8 HIM IP Note OR Scalehouse Attendant Normal [facility] Lipaseon 11-25-2017 Lipase 29 U/L Normal 13-60 [facility] Comment on above: Result Comment: Perf ormed at [facility], [address] [place] [address] Liver Profileon 11-25-2017 Alanine aminotransferase (ALT) 57 U/L High 5-41 [facility] Albumin 4.1 g/dL Normal 3.5-5.2 [facility] Albumin/Globulin Ratio 1.5 {ratio} Normal 1.0-2.5 [facility] Comment on above: Result Comment: Perf ormed at [facility], [address] [place] [address] Alkaline Phos 87 U/L Normal 40-129 [facility] Aspartate aminotransferase (AST) 28 U/L Normal <40 [facility] Bilirubin (direct) mg/dL Normal <0.31 [facility] Bilirubin Ql (U) 0.17 mg/dL Low 0.3-1.2 [facility] Bilirubin, Indirect CANNOT BE CALCULATED Normal 0.00-1 .00 [facility] Protein 6.8 g/dL Normal 6.4-8.3 [facility] Globulin NOT REPORTED Normal 1.5-3.8 [facility] UA w/Reflex Cultureon 2017 Acetaminophen mass conc Negative Normal NEG [facility] Bilirubin (direct) Negative Normal NEG [facility] Hemoglobin mass conc (Bld) TRACE Abnormal NEG [facility] Nitrite,Ur Negative Normal NEG [facility] Turbidity CLEAR Normal CLEAR [facility] Urine, color YELLOW Normal YEL [facility] Urine, glucose presence Negative Normal NEG [facility] Urine, leukocyte esterase presence Negative Normal NEG [facility] Comment on above: Result Comment: Perf ormed at [facility], [address] [place] [address] Urine, pH 7.0 [pH] Normal 5.0-8.0 [facility] Urine, protein presence Negative Normal NEG [facility] Urine, specific gravity 1.010 Normal 1.005-1.030 [facility] Urobilinogen,Ur Normal Normal NORM [facility] Comment NOT REPORTED Normal [facility] Urinalysis,Microon 8 ----- Normal [facility] Other Observations Utilizing a urinalys is as the only screening method to exclude a potential Abnormal NREQ [facility] Comment on above: Result Comment: urop athogen can be unreliable in many patient populations. Rapid screening tests are less sensitive than culture and if UTI is a clinical possibility, culture should be considered despite a negative urinalysis.Performed at [facility] [place], [address] [place] [id number] Urine WBC's None Normal 0-5 [facility] Urine, bacteria in sediment None Normal NONE [facility] Urine, epithelial cells in sediment 0 TO 2 Normal 0-5 [facility] Urine, erythrocytes None Normal 0-2 [facility] Epithelial, Renal NOT REPORTED Normal 0 [facility] Mucus Strands NOT REPORTED Normal NONE [facility] Trichomonas NOT REPORTED Normal NONE [facility] Urine, amorphous sediment presence in sediment NOT REPORTED Normal NONE [facility] Urine, casts in sediment NOT REPORTED Normal [facility] Urine, crystals in sediment NOT REPORTED Normal NONE [facility] Urine, yeast presence in sediment NOT REPORTED Normal NONE [facility] ED Noteon 08-25-2017 HIM IP Note OR Scalehouse Attendant Normal [facility] HIM IP Note OR Scalehouse Attendant Normal [facility] HIM IP Note OR Scalehouse Attendant Normal [facility] HIM IP Note OR Scalehouse Attendant Normal [facility] ED Provider Noteon 8 HIM IP Note OR Scalehouse Attendant Normal [facility] ED Noteon 08-04-2017 HIM IP Note OR Scalehouse Attendant Normal [facility] ED Provider Noteon 7 HIM IP Note OR Scalehouse Attendant Normal [facility] ED Noteon 05-01-2017 HIM IP Note OR Scalehouse Attendant Normal [facility] ED Provider Noteon 7 HIM IP Note OR Scalehouse Attendant Normal [facility] Encounters Encounter Date Encounter Type Care Provider Facility Start: 11-29-2023 End: 11-29-2023 Emergency department patient visit NO PCP [facility]CP [facility] Start: 11-29-2023 End: 11-29-2023 ambulatory [facility] Start: 09-30-2023 End: 09-30-2023 Emergency department patient visit NO PCP NO PCP [facility] Start: 08-03-2023 End: 08-04-2023 Emergency department patient visit [facility] Start: 04-30-2022 End: 04-30-2022 Emergency department patient visit Sea Hough Facility:[facility] Start: 04-04-2022 End: 04-04-2022 ambulatory Madelyn Lares [employer]SEL[employer] Facility:[facility] Start: 01-18-2022 End: 01-18-2022 Emergency department patient visit Tena Perdomo [employer] COUNSEL[employer] Facility:[facility] Start: 09-15-2021 End: 09-15-2021 Emergency department patient visit MD Brett Moody Facility:[facility] Start: 06-16-2021 End: 06-16-2021 ambulatory Melany Hamilton [employer] COUNSELOR Facility:[facility] Start: 08-20-2019 End: 08-20-2019 Emergency department patient visit RADHA CARLIE Facility:[facility] Start: 07-12-2019 End: 07-12-2019 Emergency department patient visit BETYTRACY Kyleigh ALVES Facility:[facility] Start: 05-11-2019 End: 05-11-2019 Emergency department patient visit RADHA HAILEYOUNG Facility:[facility] Start: 11-25-2017 End: 11-25-2017 Emergency department patient visit SEN Plascencia [facility] Start: 08-25-2017 End: 08-25-2017 Emergency department patient visit SEN Plascencia [facility] Start: 08-04-2017 End: 08-04-2017 Emergency department patient visit SEN Plascencia [facility] Start: 05-01-2017 End: 05-01-2017 Emergency department patient visit SEN Plascencia [facility] Procedures Date Procedure Procedure Detail Performing Clinician Start: 05-11-2019 APPLICATION LONG LEG SPLINT BABAK BALDWIN Start: 05-11-2019 Emergency department patient visit BABAK BALDWIN Start: 11-25-2017 Microscopic urinalysis SEN ROTH Start: 11-25-2017 URINE RT REFLEX TO CULTURE SEN ROTH Start: 11-25-2017 Ct abdomen & pelvis w/contrast material SEN ROTH Start: 11-25-2017 BASIC METABOLIC PANEL J CANDY ROTH Start: 11-25-2017 CBC WITH AUTO DIFFERENTIAL SEN ROTH Start: 11-25-2017 HEPATIC FUNCTION PANEL SEN ROTH Start: 11-25-2017 LIPASE SEN PHELAN Start: 11-25-2017 INSERT PERIPHERAL IV JE MARIBETH ROTH Payers Date Payer Category Payer Unknown [id number] 2023 Unknown [id number] 2021 Unknown 2016 Unknown [id number] 1990 Unknown [id number] 2.16.8 [id number] 1990 Unknown [id number] 2.16.8 [id number] 1990 Unknown [id number] 2.16.8 [id number] 1990 Unknown [id number] 2.16. [id number] 1990 Unknown [id number] 2.16. [id number] 1990 Unknown [id number] 2.16. [id number] 1990 Unknown [id number] 2.16. [id number] 1990 Unknown [id number] 2.16. [id number] 1990 Unknown [id number] 2.16.8 [id number] 1988 Unknown [id number] 2.16.8 [id number] 1988 Unknown [id number] 2.16.8 [id number] 1988 Unknown [id number] 2.16.84 [id number] 1988 Unknown [id number] 2.16.84 [id number] Unknown [id number] Clinical Note 04-30-2022 Note Date & Type Note Facility 04-30-2022 Note Procedure: CT of the abdomen and pelvis with contrast. Contrast: 100 mL Omnipaque 300 intravenously. Oral contrast. Phase of contrast-enhancement: Portal venous. Reconstructed images: 5 mm axial, 3 mm coronal, and 3 mm sagittal. Clinical information: 31-year-old male with left abdominal pain starting today and nausea. Comparison: 01/18/2022 and 12/20/2019. Findings: Liver: Unchanged three subcentimeter low-attenuation lesions, probably benign cysts and/or hemangiomas. Gallbladder: No radiopaque stones or pericholecystic fluid. Biliary tree: No dilatation. Pancreas: Normal. Spleen: Normal. Adrenal glands: Normal. Kidneys/ureters: Normal. Symmetric renal enhancement. Bladder: No radiopaque stones. Prostate: Unremarkable. Bowel: Mild colonic diverticulosis without diverticulitis. No dilatation. Normal appendix. Peritoneum/retroperitoneum: No ascites, pneumoperitoneum, or pathologic lymph node enlargement. Aortoiliac arteries: Unremarkable. Bones: No acute fracture or destructive abnormality. 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 Abdominal wall: Unremarkable. Lower thorax: Unremarkable. IMPRESSION: 1. No acute abnormality of the abdomen and pelvis. 2. Mild colonic diverticulosis without diverticulitis. 3. Chronic L4 pars defects. 4. Probably benign cysts and/or hemangiomas of the liver. Radiation Dose Estimate: CTDI(mGy):0.539712 / / / kVp:120.091687 / mAs:0.366269 / / / DLP(mGy-cm):4.928475Stlx Part: Abdomen CTDI(mGy):10.143088 / / / kVp:100.367557 / mAs:140.972794 / / / DLP(mGy-cm):477.247152Adnq Part: Abdomen Final Dictated by: Brett Aguirre MD Dictated DT/TM: 04.30.2022 7:11 am Signed by: Brett Aguirre MD Signed (Electronic Signature): 04.30.2022 7:18 am (If Report Is Signed, Electronically Signed in Other Vendor System) [facility] Clinical Note 04-04-2022 Note Date & Type Note Facility 04-04-2022 Note Patient Education Ma terials Name: Janina Silva II Current Date: 04/04/2022 16:20:57 [place] : 1990 The following sheet(s) are the Patient Education Leaflets for Janina Silva II Infectious Disease Coronavirus Disease 2019 (COVID-19): Caring for Yourself or Others If you or a household member have symptoms of COVID-19, follow the guidelines below for preventing spread of the virus, and managing symptoms. If you think you have COVID-19 symptoms ? Stay home. Call your healthcare provider and tell them you have symptoms of COVID-19. Do this before going to any hospital or clinic. Follow your provider's instructions. You may be advised to isolate yourself at home. This is called self-isolation. ? Don?t panic. Keep in mind that other illnesses can cause similar symptoms. ? Stay away from work, school, and public places. Limit physical contact with family members. Limit visitors. Don't kiss anyone or share eating or drinking utensils. Clean surfaces you touch with disinfectant. This is to help prevent the virus from spreading. ? If you need to cough or sneeze, do it into a tissue. Then throw the tissue into the trash. If you don't have tissues, cough or sneeze into the bend of your elbow. ? Don?t share food or personal items with people in your household. This includes items like eating and drinking utensils, towels, and bedding. ? Wear a cloth face mask around other people. During a public health emergency, medical face masks may be reserved for healthcare workers. You may need to make a cloth face mask of your own. You can do this using a bandana, T-shirt, or other cloth. The CDC has instructions on how to make a mask. ? If you need to go to a hospital or clinic, expect that the healthcare staff will wear protective equipment such as masks, gowns, gloves, and eye protection. You may be put in a separate room. This is to prevent the possible virus from spreading. ? Tell the healthcare staff about recent travel. This includes local travel on public transport. Staff may need to find other people you have been in contact with. ? Follow all instructions the healthcare staff give you. If you have been diagnosed with COVID-19 ? Stay home and start self-isolation. Don?t leave your home unless you need to get medical care. Don't go to work, school, or public areas. Don't use public transportation or taxis. ? Follow all instructions from your healthcare provider. Call your healthcare provider?s office before going. They can prepare and give you instructions. This will help prevent the virus from spreading. ? If you need to go to a hospital or clinic, expect that the healthcare staff will wear protective equipment such as masks, gowns, gloves, and eye protection. You may be put in a separate room. This is to prevent the possible virus from spreading. ? Wear a face mask. This is to protect other people from your germs. If you are not able to wear a mask, your caregivers should. During a public health emergency, medical face masks may be reserved for healthcare workers. You may need to make a cloth face mask of your own. You can do this using a bandana, T-shirt, or other cloth. The [facility] has instructions on how to make a mask. ? Stay away from other people in your home. ? Have no contact with pets and animals. ? Don?t share food or personal items with people in your household. This includes items like eating and drinking utensils, towels, and bedding. ? If you need to cough or sneeze, do it into a tissue. Then throw the tissue into the trash. If you don't have tissues, cough or sneeze into the bend of your elbow. ? Wash your hands often. Self-care at home There is currently no medicine approved to prevent or treat the virus. Some experimental and other medicines are being tested against COVID-19. Other medicines used to treat other conditions are being looked at for COVID-19, but they are not currently approved to treat it. Current treatment is mainly aimed at helping your body while it fights the virus. This is known as supportive care. Take care of yourself at home by: ? Getting rest. This helps your body fight the illness. ? Staying hydrated. Drink 6 to 8 glasses of liquids every day, or as advised by your provider. Good choices are water, sport drinks, soft drinks without caffeine, juices, tea, and soup. ? Taking aarj-axz-xmfufdx (OTC) pain medicine. These are used to help ease pain and reduce fever. Follow your healthcare provider's instructions for which OTC medicine to use. If you've been in the hospital for suspected or confirmed COVID-19 and now are home, follow all of your healthcare team's instructions. This will include when it's OK to stop self-isolation. You may also get instructions on position changes to help your breathing, such as lying on your belly (prone positioning). Caring for a sick person ? Follow all instructions from healthcare staff. ? Wash your hands often. ? (more content not included)... [facility] Clinical Note 04-04-2022 Note Date & Type Note Facility 04-04-2022 Note This is a Telephone Appointment *This visit was conducted by Telephone with real time communication and interaction. This was performed due to the current COVID-19 pandemic in order to minimize exposure to both patients and staff. The patient verbally consented to treatment. The patient understands their rights, the HIPAA risks and that they will be charged accordingly for the services rendered. Chief Complaint pt c/o headache and sore throat x 1 days, positive covid exposure History of Present Illness Pleasant 31-year-old male presents via telephone encounter requesting testing for COVID-19. Patient reports that yesterday he began experiencing headache, fatigue, and a slight tickle in the back of his throat. He denies fever, body aches, cough, wheezing, shortness of breath, or GI concerns. Patient states that his girlfriend began developing similar symptoms yesterday and tested positive for COVID-19 today. He has not had COVID-19 previously. He is not vaccinated against COVID-19. Review of Systems General: No fever, chills, body aches. + Fatigue. No unexplained weight loss or change in appetite. HEENT: No visual changes, blurred vision, or double vision. No eye pain. No ear pain. No change in hearing or tinnitus. No nasal drainage. No nasal congestion. No sinus pressure. + Tickle in throat. Cardiovascular: No chest pain, palpitations, or syncope. Pulmonary: No shortness of breath, wheezing, cough. GI: No nausea, vomiting or diarrhea. No abdominal pain. Musculoskeletal: No weakness, joint pain, back pain. No myalgias. Neuro: + Headache. No dizziness. Skin: Denies rashes or other acute changes. Physical Exam Telephone appointment. No audible wheezing or respiratory distress noted during telephone conversation. Patient speaking in complete sentences without difficulty. Additional Vitals No qualifying data available. Assessment/Plan 1. Encounter by telehealth for suspected COVID-19 COVID-19 testing in the office today is negative. There is concern for false negative testing during the early stages of viral illness. Based on your close exposure and current symptoms I would recommend that you quarantine for the next 4 days and retest for COVID-19 at that time. May use grai-ozu-toxoawc Tylenol and Motrin for pain and/or fever relief. May use ypic-pap-trsufhv Chloraseptic throat spray, lozenges, cool or warm fluids for throat pain relief. Gargle with warm salt water 2-3 times daily as needed. Increase water intake and rest. Also recommend using nasal saline spray for treatment of sinus congestion and postnasal drip. Delsym cough medicine as needed as directed on the packaging for cough. You can also try: Vitamin C 500mg twice a day Zinc 75-100mg/day Vitamin D3 2000-4000u/day Follow-up with your family doctor. Go to the emergency room for worsening symptoms such as difficulty breathing or increased shortness of breath. Time Spent with the Patient Today's visit was performed via telehealth and utilized an audio only connection. Duration of the visit in conversation with the patient: [10] Problem List/Past Medical History Ongoing No chronic problems Historical No qualifying data Procedure/Surgical History left shoulder REMOVAL OF TONSILS Medications albuterol 90 mcg/inh inhalation aerosol, 2 puffs, Inhale, q6hr, PRN, Not taking diclofenac sodium 75 mg oral delayed release tablet, 75 mg= 1 tabs, Oral, BID, Not taking Flonase 50 mcg/inh nasal spray, 1 sprays, Nasal, BID, Not taking Allergies Pneumovax 23 (Rash) pneumococcal vaccines (Hives) Social History Alcohol Current, Beer, 1-2 times per month Substance Abuse Denies All Tobacco 10 or more cigarettes (1/2 pack or more)/day in last 30 days Use:. Immunizations Vaccine Date Status tetanus/diphth/pertuss (Tdap) adult/adol 07/26/2020 Given Lab Results Test Name Test Result Date/Time POC SARS Antigen Card Negative 04/04/2022 15:43 EDT Electronically signed by Arnaud CHUNN-JOB COUNSELORMadelyn 04/04/22 16:22 EDT [facility] Clinical Note 01-18-2022 Note Date & Type Note Facility 01-18-2022 Note Procedure: CT of the abdomen and pelvis with contrast. Contrast: 100 mL Omnipaque 300 intravenously. Oral contrast was not given. Phase of contrast-enhancement: Portal venous. Clinical information: Other (please specify), Abdominal pain, acute, nonlocalized. Comparison: None. Findings: Lower thorax: Unremarkable. Hepatobiliary system: 5 mm too small to characterize right hepatic lobe hypoattenuating nodule is identified, probably a cyst. No radiodense gallstones or signs of gallbladder inflammation. No unexpected intrahepatic or extrahepatic biliary dilatation. Pancreas: Unremarkable. Spleen: Unremarkable. Adrenal glands: Unremarkable. Right kidney and ureter: No obstructing intrarenal or ureteral stones, hydronephrosis or hydroureter. Left kidney and ureter: No obstructing intrarenal or ureteral stones, hydronephrosis or hydroureter. Urinary bladder: No radiodense stones. Inadequately distended for further diagnostic evaluation phleboliths. The prostate: Mildly prominent in size. The gastrointestinal tract: No evidence of bowel obstruction or bowel inflammation. Suspected short appendix is normal in caliber. Mild descending colon diverticulosis without evidence of diverticulitis. Peritoneum: No free abdominopelvic air or fluid is identified. Interval enlargement of multiple right lower quadrant mesenteric and prepsoas lymph nodes, which should be correlated clinically with possibility and/or etiologies of mesenteric adenitis. Retroperitoneum: No abnormal mass, fluid collection or gross lymphadenopathy. Major vessels: Grossly unremarkable. Body wall: Small fat-containing umbilical hernia is identified. Bones: No acute fracture or destructive abnormality. IMPRESSION: Interval enlargement of multiple right lower quadrant mesenteric and prepsoas lymph nodes to be correlated clinically with possibility of mesenteric adenitis. Radiation Dose Estimate: CTDI(mGy):0.496979 / / / kVp:120.467021 / mAs:0.200206 / / / DLP(mGy-cm):4.604129Cnii Part: Abdomen CTDI(mGy):13.721288 / / / kVp:100.124891 / mAs:187.969782 / / / DLP(mGy-cm):642.318892Vlgp Part: Abdomen Final Dictated by: Jacinda Cheney MD Dictated DT/TM: 01.18.2022 9:27 am Signed by: Jacinda Cheney MD Signed (Electronic Signature): 01.18.2022 9:47 am (If Report Is Signed, Electronically Signed in Other Vendor System) [facility] Clinical Note 06-16-2021 Note Date & Type Note Facility 06-16-2021 Note Patient Education Ma terials Name: Janina Silva II Current Date: 06/16/2021 11:32:18 [place] : 1990 The following sheet(s) are the Patient Education Leaflets for Janina Silva II Ambulatory Abscess (Antibiotic Treatment Only) An abscess happens when bacteria get trapped under the skin and start to grow. Pus forms inside the abscess as the body responds to the bacteria. An abscess can happen with an insect bite, ingrown hair, blocked oil gland, pimple, cyst, or puncture wound. It is sometimes call a boil. In the early stages, your wound may be red and tender. For this stage, you may get antibiotics. If the abscess does not get better with antibiotics, it will need to be drained with a small cut. Home care These tips will help you care for your abscess at home: ? Soak the wound in hot water or apply hot packs (small towel soaked in hot water) to the area for 20 minutes at a time. Do this 3 to 4 times a day, or as instructed. Use a new towel each time. Wash the towels afterward because they may be contaminated with bacteria after use. ? Don't cut, squeeze, or pop the boil yourself. ? Put antibiotic cream or ointment on the skin 3 to 4 times a day, unless something else was prescribed. Some ointments include an antibiotic plus a pain reliever. ? If your healthcare provider prescribed antibiotics, don't stop taking them until you have finished the medicine or you are told to stop. ? You may use an iblp-ift-vrchlai pain medicine to control pain, unless another pain medicine was prescribed. Talk with your provider before taking these medicines if you have chronic liver or kidney disease or ever had a stomach ulcer or digestive bleeding. Follow-up care Follow up with your healthcare provider, or as advised. Check your wound each day for the signs that the infection may be getting worse (see below). When to seek medical advice Get prompt medical attention if any of these occur: ? An increase in redness or swelling ? Red streaks in the skin leading away from the abscess ? An increase in local pain or swelling ? Fever of 100.4?F (38?C) or higher, or as directed by your healthcare provider ? Pus or fluid coming from the abscess ? Boil returns after getting better ? [id number] [place] [address], [place] [address]. All rights reserved. This information is not intended as a substitute for professional medical care. Always follow your healthcare professional's instructions. 1. Dental abscess 1) Patient started to drink at least 8 glasses of non-caffeinated nonalcoholic beverages per day 2) Medication prescribed as documented. Penicillin V four times a day for 7 days. Recommended Ora Gel and Clove oil for the pain 3) Patient instructed to soften maritza wax and place over the tooth to keep the air out and reduce pain. 4) Patient instructed to take Ibuprofen 600-800 mg every 8 hours as needed for pain. 5 If not better and the next 4 or 5 days followup with PCP. See dentist RUSSEL Ordered: penicillin V potassium, 1 tabs, Oral, QID, X 7 days, # 28 tabs, 0 Refill(s), 06/23/21 11:26:00 [facility], Pharmacy: [facility] [address] Summary Purpose Family History No Family History Records FoundNo Family History Records FoundNo Family History Records FoundNo Family History Records FoundNo Family History Records Found Advance Directives No Advanced Directives Records FoundNo Advanced Directives Records FoundNo Advanced Directives Records FoundNo Advanced Directives Records FoundNo Advanced Directives Records Found Additional Source Comments (unrecognized sect ion and content) No Status Records FoundNo Status Records FoundNo Status Records FoundNo Status Records FoundNo Status Records Found INFORMATION SOURCE (unrecogn ized section and content) DATE CREATED AUTHOR 01/26/2018 [facility] DATE CREATED AUTHOR AUTHOR'S INESSAIZ ATION 09/01/2019 [facility] DATE CREATED AUTHOR AUTHOR'S ORGANIZ ATION 05/10/2022 [facility] DATE CREATED AUTHOR AUTHOR'S ORGANIZ ATION 11/30/2023 [facility] DATE CREATED AUTHOR AUTHOR'S ORGANIZ ATION 12/01/2023 [facility] FOR RECORDS PERTAINING TO PATIENTS WHO ARE OR HAVE BEEN ENROLLED IN A CHEMICAL DEPENDENCY/SUBSTANCEABUSE PROGRAM, SOME INFORMATION MAY BE OMITTED. This clinical summary was aggregated from multiple sources. Caution should be exercised in using it in the provision of clinical care. This summary normalizes information from multiple sources, and as a consequence, information in this document may materially change the coding, format and clinical context of patient data. In addition, data may be omitted in some cases. CLINICAL DECISIONS SHOULD BE BASED ON THE PRIMARY CLINICAL RECORDS. [email or web address] [facility]. provides no warranty or guarantee of the accuracy or completeness of information in this document.
[2023-12-01] MEDS: MORPHINE SULFATE 2 MG/ML SYRINGE IV (20:50)
[2023-12-01] MEDS: CYCLOBENZAPRINE HCL 10 MG TABLET 5 MG PO (20:50)
[2023-12-01] MEDS: GABAPENTIN 300 MG CAPSULE PO (20:50)
[2023-12-01] MEDS: PREDNISONE 20 MG TABLET 40 MG PO (20:50)
[2023-12-01 21:03] VITALS: BP 125/80; PULSE 84; TEMP 36.6; O2SAT 98
[2023-12-01] MEDS: ENOXAPARIN SODIUM 40 MG/0.4 ML SYRINGE SUBQ (21:39)
[2023-12-01] MEDS: TRAZODONE HCL 50 MG TABLET PO (21:39)
[2023-12-02] MEDS: MORPHINE SULFATE 2 MG/ML SYRINGE IV (04:13)
[2023-12-02 04:21] VITALS: BP 105/68; PULSE 68; TEMP 36.3; O2SAT 95
[2023-12-02 04:36] LABS: Basophils Percent Auto 0.5 % (0.2-2.0); Eosinophils Absolute Auto 0.1 10^3/uL (0.0-0.7); Eosinophils Percent Auto 1.7 % (0.9-7.0); Hematocrit 45.6 % (42.0-54.0); Hemoglobin 14.8 g/dL (14.0-18.0); Immature Granulocytes Abs Auto 0.03 10^3/uL (0.00-0.03); Immature Granulocytes Pct Auto 0.4 % (0.0-0.5); Lymphocytes Absolute Auto 1.2 10^3/uL (1.2-3.8); Lymphocytes Percent Auto 15.4 % (20.5-60.0); Mean Corpuscular HGB Conc 32.5 g/dL (29.9-35.2); Mean Corpuscular Hemoglobin 30.3 pg (25.9-34.0); Mean Corpuscular Volume 93.3 fL (80.0-94.0); Mean Platelet Volume 9.5 fL (9.5-13.5); Monocytes Absolute Auto 0.4 10^3/uL (0.3-0.8); Monocytes Percent Auto 4.9 % (1.7-12.0); Neutrophils Percent Auto 77.1 % (43.0-75.0); Platelet Count 247 10^3/uL (150-450); Red Blood Count 4.89 10^6/uL (4.70-6.10); Red Cell Distribution Width 12.5 % (11.0-15.0); White Blood Count 7.8 10^3/uL (4.0-11.0)
[2023-12-02 04:51] LABS: INR 1.01; Prothrombin Time 10.7 sec (9.0-11.6)
[2023-12-02 04:56] LABS: Alanine Aminotransferase 47 U/L (16-63); Albumin Globulin Ratio 1.1; Albumin Level 3.4 g/dL (3.4-5.0); Alkaline Phosphatase 75 U/L (46-116); Anion Gap 9.5; Aspartate Amino Transferase 15 U/L (15-37); Bilirubin Total 0.4 mg/dL (0.2-1.0); Calcium 8.4 mg/dL (8.5-10.1); Carbon Dioxide 27.9 mmol/L (21.0-32.0); Chloride 106 mmol/L (98-107); Estimated GFR (African America >60 (>=60); Estimated GFR (Non-African Ame >60 (>=60); Glucose 132 mg/dL (74-106); Potassium 4.4 mmol/L (3.5-5.1); Sodium 139 mmol/L (136-145); Total Protein 6.4 g/dL (6.4-8.2)
--- NOTE | 2023-12-02 07:17 | MR_ITS ---
[address] [address] Patient Name: JANINA PEÑA MRN: [id number] date: 1990 Sex: M Assigned Patient Location: [place] Current Patient Location: [place] Accession/Order Number: [id number] Exam Date: 12/02/2023 10:55 Report Date: 12/02/2023 11:50 At the request of: EDUARDO ROBBINS Procedure: MR lumbar spine wo con EXAMINATION: MR lumbar spine wo con HISTORY: intractable low back pain , bilateral radiculopathy and leg weakness COMPARISON: No relevant comparison available. TECHNIQUE: A variety of imaging planes and parameters were utilized for visualization of suspected pathology. FINDINGS: For the purposes of numbering, sagittal T2 image # 8 extends from the T11 vertebral body superiorly to the S3 level inferiorly. PARASPINAL AREA: Normal with no visible mass. BONES: Normal alignment with no acute fracture or spondylolisthesis CORD/CAUDA EQUINA: Normal caliber, contour, and signal intensity. DISC LEVELS: 12-L1: No significant disc/facet abnormality, spinal stenosis, or foraminal stenosis. L1-L2: No significant disc/facet abnormality, spinal stenosis, or foraminal stenosis. L2-L3: No significant disc/facet abnormality, spinal stenosis, or foraminal stenosis. L3-L4: No significant disc/facet abnormality, spinal stenosis, or foraminal stenosis. L4-L5: Mild disc space narrowing and disc desiccation. Mild posterior disc/osteophyte complex. No central or foraminal stenosis L5-S1: Moderate disc space narrowing and disc desiccation. Posterior central disc herniation measuring 1.7 cm at the base extending posteriorly up to 4.3 mm with annular tear. No central or foraminal stenosis MR/MR lumbar spine wo con IMPRESSION: Degenerative changes at L4-5 and L5-S1 most significant at L5-S1 where there is a posterior central moderate-sized disc herniation with annular tear No central or foraminal stenosis Electronically authenticated by: GEOVANNY HILLMAN Date: 12/02/2023 11:50
[2023-12-02 08:00] VITALS: O2SAT 93
[2023-12-02] MEDS: GABAPENTIN 300 MG CAPSULE PO (09:10)
[2023-12-02] MEDS: PAROXETINE HCL 20 MG TABLET PO (09:10)
[2023-12-02] MEDS: PREDNISONE 20 MG TABLET 40 MG PO (09:10)
[2023-12-02] MEDS: CYCLOBENZAPRINE HCL 10 MG TABLET 5 MG PO (09:10)
[2023-12-02] MEDS: OXYCODONE HCL 5 MG TABLET PO (09:41)
--- NOTE | 2023-12-02 11:19 | SWNOTE1 ---
SW did receive call from physical therapy. Pt is at home with 9 kids and la back pain. They are recommending pt use a rolling walker at this time. SW to speak with pt in regards to walker.
--- NOTE | 2023-12-02 11:37 | P.HP_ITS ---
<Statement entered by Stephanie Mcgovern, DO - 12/02/23 15:26> This documentation has been reviewed and approved.I have also seen and evaluated patient agree with the above assessments and plan of care. Close follow up with Dr. Resendiz. 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 The patient presented to the ED yesterday complaining of severe back pain and inability to ambulate. The [facility] but initiation of workup has been slow. 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 Over the last 6 days the pain has been increasingly severe. Yesterday when he tried to stand his legs gave out and he fell to the floor. He was able to get himself back up with some difficulty due to the severe pain. He reports chronic mild paresthesias to his bilateral great toes and waxing and waning radiculopathy to the bilateral lower extremities. He denies saddle anesthesia or bowel or bladder changes. Due to his severe pain and fall he presented to the ED for further evaluation. 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 Due to the patient's intractable pain and impaired mobility the patient was admitted in observation to the hospitalist service last night. Dr. Saint Castro, orthopedics spine surgeon, was contacted by the ED to review the imaging. He requested an MRI be obtained this morning and the patient should follow-up with him as an outpatient once adequate pain control is attained. At the time of my exam this morning the patient is resting in bed. He is not in severe distress when still, but does exhibit restlessness and pain response with minimal movement of his bilateral lower extremities. He has mild paresthesias of the great toes today and reports intermittent more severe paresthesia primarily of the right foot at times. We will trial oxycodone for pain management and if this is successful the patient will be discharged later today after his MRI. DISCHARGE: The pt is reporting adequate pain control using oxycodone. He has been seen by PT, and ambulation with a walker is recommended for safety for now pending further intervention. The pt[facility] provider has already ordered PT services as an outpatient and he will begin this as soon as it can be arranged. He is to follow up with Dr Resendiz next Tuesday as scheduled. Opioid HPI Opioid Management Most Recent Opioid Data: Last Pain Scale 7 12/02/23 10:20 Last Pain Intensity 6 12/02/23 10:20 Last Pain Assessment 12/02/23 10:00 Last MAR Pain Assessment 12/02/23 11:25 Last ORT Total Score 1 12/01/23 18:37 Last ORT Risk Category Low Risk 12/01/23 18:37 Review of Systems ROS Status of ROS 10 or more systems reviewed and unremark able except as noted in history and below [facility] Medical History (Updated 12/02/23 @ 07:47 by Candy Scott NP) Depression ?F32.A - Depression, unspecified (ICD-10) Impaired mobility ?Z74.09 - Other reduced mobility (ICD-10) Intractable low back pain ?M54.59 - Other low back pain (ICD-10) Surgical History (Updated 12/01/23 @ 18:50 by Jesse Schwartz) H/O repair of rotator cuff ?Z98.890 - Other specified postprocedural states (ICD-10) Hx of nasal septoplasty ?Z98.890 - Other specified postprocedural states (ICD-10) Hx of tonsillectomy ?Z90.89 - Acquired absence of other organs (ICD-10) Social History Highest level of school completed/degree received: high school graduate Meds Home Medications and Allergies Home Medications ?Medication ?Instructions ?Recorded ?Confirmed ?Type cyclobenzaprine 5 mg tablet 5 mg PO BID 12/01/23 12/01/23 History gabapentin 300 mg capsule 300 mg PO BID 12/01/23 12/01/23 History paroxetine HCl 10 mg tablet 20 mg PO DAILY 12/01/23 12/01/23 History prednisone 20 mg tablet 40 mg PO BID 12/01/23 12/01/23 History trazodone 50 mg tablet 50 mg PO BEDTIME 12/01/23 12/01/23 History Allergies Allergy/AdvReac Type Severity Reaction Status Date / Time pneumococcal vaccine Allergy Unknown Verified 09/12/23 10:21 Exam Constitutional Vital Signs, click to edit/add: Last Vital Signs Temp 97.3 F L 12/02/23 04:21 Pulse 68 12/02/23 04:21 Resp 18 12/02/23 08:00 BP 105/68 12/02/23 04:21 Pulse Ox 93 L 12/02/23 08:00 O2 Del Method Room Air 12/02/23 04:21 Common normals: no apparent distress, oriented x3, alert and well nourished General appearance: cooperative Orientation/consciousness: Yes awake HENMT Common normals: normocephalic, head/scalp atraumatic, hearing grossly normal bilaterally, external nose normal and moist oral mucous membranes Eye Common normals: PERRL, EOMs intact bilaterally, conjunctivae normal and no scleral icterus Alignment: alignment normal Eyelid: eyelids normal Neck & C-Spine Common normals: full ROM, supple and no JVD Chest Common normals: inspection of chest normal Chest: symmetrical chest wall rise Respiratory Common normals: normal respiratory effort, no retractions, no use of accessory muscles and clear to auscultation bilaterally Effort & inspection: able to speak in complete sentences Cardio Common normals: no JVD, regular rate, regular rhythm, S1 normal heart sound, S2 normal heart sound, no gallops, no clicks, no murmurs, no rub and peripheral pulses 2+ throughout GI Common normals: Normal to inspection, nondistended, normoactive bowel sounds present, soft to palpation, non-tender, no hepatosplenomegaly, no masses and no bruits Bladder/kidney exam: bladder normal to palpation Back & Pelvis Common normals: thoracic and lumbar spine normal to inspection Extremity Common normals: normal capillary refill and no pedal edema General: normal exam except as noted; no clubbing and no cyanosis Other: Severe lumbar pain with minimal movement of BLE. ROM limited by pain Neuro [place] Coma Scale: GCS not evaluated Common normals: CN's II-XII intact bilaterally, moves all extremities and no focal motor deficits Speech: speech normal Sensory exam: other (Bilat great toes w/ mild paresthesias) Motor exam: strength abnormal (BLE plantar/dorsiflexion 4/5, exam limited by pain response) Psych Common normals: mental status grossly normal, thought process normal, affect normal and activity/motor behavior normal Results Labs Labs: Short CBC 12/02/23 Range/Units 04:07 WBC 7.8 (4.0-11.0) 10^3/uL Hgb 14.8 (14.0-18.0) g/dL Hct 45.6 (42.0-54.0) % Plt Count 247 (150-450) 10^3/uL BMP 12/02/23 04:07 Sodium 139 Potassium 4.4 Chloride 106 Carbon Dioxide 27.9 BUN 18.0 Creatinine 1.06 Glucose 132 H Calcium 8.4 L Liver Function 12/02/23 Range/Units 04:07 Total Bilirubin 0.4 (0.2-1.0) mg/dL AST 15 (15-37) U/L ALT 47 (16-63) U/L Alkaline Phosphatase 75 (46-116) U/L Albumin 3.4 (3.4-5.0) g/dL Pulse Oximetry Attestation: I have reviewed the pertinent pulse oximetry results. Imaging CT Scan - Lumbar Spine: Attestation: I have reviewed the pertinent imaging results. 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 Either L4 limbus vertebra versus an old nonunion fracture of the left paramedian anterior aspect of the L4 inferior endplate. At L4-L5, a small right paracentral posterior disc protrusion. MRI - Lumbar Spine: Attestation: I have reviewed the pertinent imaging results. Radiologist's impression: IMPRESSION: Degenerative changes at L4-5 and L5-S1 most significant at L5-S1 where there is a posterior central moderate-sized disc herniation with annular tear No central or foraminal stenosis Assessment and Plan Assessment and Plan (1) Intractable low back pain: Assessment and Plan: Acute on Chronic * Adm observation * CT LS - multiple, small vertebral process/endplate fractures noted from L3-L5 - all appear chronic, no acute fracture noted * Obtain MRI to further assess for nerve or disc involvement * Consult Dr Lindsey - orthopedic spine surgeon * Follow up outpatient next Tuesday * Oxycodone 5-10 mg q6h for mod to severe pain - Pt reports adequate pain relief. * PT/OT consults - Continue plans for outpatient PT [facility] the [facility] * PT recommends using a walker for safe ambulation until the pt's back pain and LE weakness improve (2) Lumbar vertebral fracture: Assessment and Plan: See above (3) Lumbar back pain with radiculopathy affecting lower extremity: Assessment and Plan: See above (4) Impaired mobility and ADLs: Assessment and Plan: See above
[2023-12-02 12:00] VITALS: BP 142/89; PULSE 98; TEMP 36.1; O2SAT 98
--- NOTE | 2023-12-02 12:16 | CM.NOTE ---
Rounds made with Dr. Mcgovern, pt was down for MRI. Discussed discharge planning with Candy DERAS. Plan is for patient to discharge home today and f/u with St. Castro as outpatient. Script for walker completed.
[2023-12-02 14:00] VITALS: BP 138/86; PULSE 110; TEMP 36.7; O2SAT 96
--- NOTE | 2023-12-02 15:12 | SWNOTE1 ---
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 TITI called pt and notified him.
--- NOTE | 2023-12-05 11:27 | CM.DCFOLLOWU ---
Person spoke with: patient How are you feeling? much better How is your pain? less pain Did you understand your discharge instructions? yes Do you have any questions about your discharge instructions? no Were you given any prescriptions at discharge? yes Were you able to get your prescriptions filled? yes Do you understand how to take your medications as ordered? yes Do you have any questions about your follow up appointment and do you plan to keep your follow up appointment? no questions, reviewed follow up appointment with pt Is there anything else that you would like to discuss? no Questions/Comments/Concerns/Other: N/A
== END 2023-12-02 14:40 | disposition home or self-care (01) ==
LOC: ER 17:56 → MS 12-02 12:15
PROVIDERS: Nurse Practitioner Acute Care; Admitting Provider Nurse Practitioner; Emergency Provider Emergency Medicine; Visit Provider Nurse Practitioner
DX: M54.50 Low back pain, unspecified (principal); G89.29 Other chronic pain; M54.16 Radiculopathy, lumbar region; Z74.09 Other reduced mobility; Z87.81 Personal history of (healed) traumatic fracture; Z79.899 Other long term (current) drug therapy; Z98.890 Other specified postprocedural states; Z90.89 Acquired absence of other organs
CPT/HCPCS: 36415; 72131; 72148; 80053; 85025; 85610; 96372; 96374; 96375; 96376; 97161; 99285; G0378; J1170

== ENCOUNTER 2023-12-09 09:22 | Outpatient (OUT) | payer MEDICAID, SELFPAY ==
--- NOTE | 2023-12-09 | XR_ITS ---
The [address] [address] Patient Name: JANINA PEÑA MRN: [id number] date: 1990 Sex: M Assigned Patient Location: Current Patient Location: Accession/Order Number: [id number] Exam Date: 12/09/2023 09:30 Report Date: 12/09/2023 09:57 At the request of: SHANA CHAN Procedure: XR lumbar spine min 4V EXAMINATION: XR lumbar spine min 4V HISTORY: LUMBAR PAIN COMPARISON: No relevant comparison available. FINDINGS: BONES: 3 mm anterolisthesis of L4 in relation L5 on neutral projection. Mild degenerative spondylosis. Remote injury anterior inferior L4 vertebral body. Suspected L4 pars interarticularis fractures DISC SPACES: Mild disc space narrowing L4-5 and L5-S1 PARASPINOUS: Negative. No paraspinous abnormality is seen. OTHER: No transient spondylolisthesis with flexion or extension XR/XR lumbar spine min 4V IMPRESSION: Suspected L4 pars fractures with grade 1, 3 mm anterolisthesis of L4 but no dynamic instability Electronically authenticated by: GEOVANNY HILLMAN Date: 12/09/2023 09:57
== END 2023-12-09 09:23 | disposition home or self-care (01) ==
LOC: EC 09:26
PROVIDERS: Visit Provider Orthopaedic Surgery Orthopaedic Surgery of the Spine
DX: M54.50 Low back pain, unspecified (principal)
CPT/HCPCS: 72110

== ENCOUNTER 2023-12-22 16:31 | Emergency (ER) | payer MEDICAID, SELFPAY ==
[2023-12-22 16:40] VITALS: BP 130/90; PULSE 92; TEMP 36.7; O2SAT 98; BMI 31.2
--- NOTE | 2023-12-22 17:08 | ED_ITS ---
HPI HPI - Back Pain/Injury General Chief Complaint: Back Pain/Injury Stated Complaint: severe back pain Time Seen by Provider: 12/22/23 16:53 Source: patient Mode of arrival: Wheelchair History of Present Illness HPI Narrative: This patient is here complaining of breakthrough pain with his back. He is scheduled to have back surgery with Dr. Saint Castro in February of this year. He was recently admitted here had an MRI confirming pretty substantial L5-S1 disc protrusion. He does not have any bowel or bladder incontinence today. He has not no sustained any new injury. He is not running a fever. He does not have any symptoms of kidney stone. He does not have a primary care doctor to assist in pain management. He did call his doctor's office several times but have not heard back from the office in regards to the request for pain reconciliation. I did consult his OARRS report, no indication of abuse here. 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 very pleasant Related Data Home Medications ?Medication ?Instructions ?Recorded ?Confirmed cyclobenzaprine 5 mg tablet 5 mg PO BID 12/01/23 12/01/23 gabapentin 300 mg capsule 300 mg PO BID 12/01/23 12/01/23 paroxetine HCl 10 mg tablet 20 mg PO DAILY 12/01/23 12/01/23 prednisone 20 mg tablet 40 mg PO BID 12/01/23 12/01/23 trazodone 50 mg tablet 50 mg PO BEDTIME 12/01/23 12/01/23 Previous Rx's ?Medication ?Instructions ?Recorded oxycodone 5 mg tablet 5 mg PO Q6H PRN pain #20 tabs 12/02/23 Allergies Allergy/AdvReac Type Severity Reaction Status Date / Time pneumococcal vaccine Allergy Unknown Verified 09/12/23 10:21 Opioid HPI Opioid Management Most Recent Opioid Data: Last Pain Scale 8 12/22/23 16:57 Last Pain Intensity 6 12/02/23 10:20 Last ORT Total Score 1 12/01/23 18:37 Last ORT Risk Category Low Risk 12/01/23 18:37 PFSH PFSH Medical History (Updated 12/22/23 @ 17:12 by Naresh Russo MD) Depression ?F32.A - Depression, unspecified (ICD-10) Impaired mobility ?Z74.09 - Other reduced mobility (ICD-10) Intractable low back pain ?M54.59 - Other low back pain (ICD-10) Surgical History (Updated 12/01/23 @ 18:50 by Jesse Schwartz) H/O repair of rotator cuff ?Z98.890 - Other specified postprocedural states (ICD-10) Hx of nasal septoplasty ?Z98.890 - Other specified postprocedural states (ICD-10) Hx of tonsillectomy ?Z90.89 - Acquired absence of other organs (ICD-10) Social History Highest level of school completed/degree received: high school graduate Exam Narrative Exam Narrative: Awake alert [place] x 3 are stable. She is afebrile. He says he also has a headache today coming from some aching and stiffness in his neck and shoulder area. He thinks the spasm from his back is going up and causing upper neck spasm. He does take muscle relaxant at home. His cognition mentation is completely normal with no indication of altered mental status or meningeal irritation. Perfusion to his lower extremities is equal with no evidence of tissue ischemia. He has no spasticity or clonus in the lower extremities. He prefers to lie flat. He moves about with some hesitation. Deep tendon reflexes at patella are equal bilaterally. Strength in the motor exam upper extremities is equal bilaterally as are reflexes in the upper limbs. . Constitutional Vital Signs, click to edit/add: Last Vital Signs Temp 98.1 F 12/22/23 16:40 Pulse 92 H 12/22/23 16:40 Resp 18 12/22/23 16:40 BP 130/90 12/22/23 16:40 Pulse Ox 98 12/22/23 16:40 O2 Del Method Room Air 12/22/23 16:40 Course Vital Signs Vital signs: Vital Signs Temperature 98.1 F 12/22/23 16:40 Pulse Rate 92 H 12/22/23 16:40 Respiratory Rate 18 12/22/23 16:40 Blood Pressure 130/90 12/22/23 16:40 Pulse Oximetry 98 12/22/23 16:40 Oxygen Delivery Method Room Air 12/22/23 16:40 Temperature 98.1 F 12/22/23 16:40 Pulse Rate 92 H 12/22/23 16:40 Respiratory Rate 18 12/22/23 16:40 Blood Pressure 130/90 12/22/23 16:40 Pulse Oximetry 98 12/22/23 16:40 Oxygen Delivery Method Room Air 12/22/23 16:40 MDM - Back Pain/Injury MDM Narrative Medical decision making narrative: Appears this patient has been worked up thoroughly and scheduled to have surgery. He is having some breakthrough pain but has no pain management doctor or primary care doctor and has not heard back from his surgeon. We will give him 3 days worth of analgesics. He declines use of steroids at this time because apparently he had a severe psychotic reaction when he took them the last time. He is to apply heat to the area 30 minutes several times a day. He can continue muscle relaxants. Discharge Plan Discharge Stand Alone Forms: Portal Instructions Chief Complaint: Back Pain/Injury Clinical Impression: Lumbar back pain with radiculopathy affecting lower extremity Patient Disposition: Home, Self-Care Time of Disposition Decision: 17:12 Prescriptions / Home Meds: No Action trazodone 50 mg tablet 50 mg PO BEDTIME paroxetine HCl 10 mg tablet 20 mg PO DAILY cyclobenzaprine 5 mg tablet 5 mg PO BID gabapentin 300 mg capsule 300 mg PO BID prednisone 20 mg tablet 40 mg PO BID oxycodone 5 mg tablet 5 mg PO Q6H PRN (Reason: pain) Qty: 20 0RF Rx Instructions: Take 1 to 2 tabs every 6 hrs as needed for pain. Print Language: Argentine Additional Instructions: Follow-up with your surgeon for ongoing pain management. Continue your muscle relaxants. Referrals: Physician,Non-Staff, MD [Primary Care Provider] - 1 week
[2023-12-22] MEDS: HYDROMORPHONE HCL 1 MG/ML CARTRIDGE 2 MG IM (17:25)
[2023-12-22 17:30] VITALS: BP 133/75; PULSE 80; O2SAT 98
== END 2023-12-22 18:01 | disposition home or self-care (01) ==
PROVIDERS: Emergency Provider Emergency Medicine Emergency Medical Services
DX: M54.16 Radiculopathy, lumbar region (principal); M54.50 Low back pain, unspecified; Z79.899 Other long term (current) drug therapy; F32.A Depression, unspecified; Z98.890 Other specified postprocedural states; Z90.89 Acquired absence of other organs
CPT/HCPCS: 96372; 99284; J1170

== ENCOUNTER 2024-02-22 12:28 | Emergency (ER) | payer OTHER, SELFPAY ==
[2024-02-22 12:34] VITALS: BP 137/91; PULSE 79; TEMP 36.6; O2SAT 97; BMI 32.7
--- NOTE | 2024-02-22 13:12 | ED_ITS ---
HPI HPI - General Adult General Chief complaint: Extremity Problem, Nontraumatic Stated complaint: BACK PAIN Time Seen by Provider: 02/22/24 12:31 Source: patient Mode of arrival: walk-in Limitations: no limitations History of Present Illness HPI narrative: Patient presents to ED complaining of back pain. This is a chronic problem for him over the past 12 years however it has been worse over the past year. He was actually on disability recently for the back pain but just got released to go back to work. He was at work this week and they were short staffed so he was doing more than had intended to do. He said this flared up his back pain and today he is having difficulty moving around due to pain. He reports the pain is lumbar mid spine from about L3-L5. He has pain that radiates into the right hip and he reports that when his back pain flares up like this his feet feel numb. The numbness in the feet is not new for him. He denies any loss of bowel or bladder function and no urinary retention. He ambulated in here although slowly he is able to walk. He states he probably needs to go back on disability due to the pain and the fact that at work his back pain got flared up so bad. He said he supposed to have surgery in March for his back. He has been working with the [employer] Related Data Home Medications ?Medication ?Instructions ?Recorded ?Confirmed cyclobenzaprine 5 mg tablet 5 mg PO BID 12/01/23 12/01/23 gabapentin 300 mg capsule 300 mg PO BID 12/01/23 12/01/23 paroxetine HCl 10 mg tablet 20 mg PO DAILY 12/01/23 12/01/23 prednisone 20 mg tablet 40 mg PO BID 12/01/23 12/01/23 trazodone 50 mg tablet 50 mg PO BEDTIME 12/01/23 12/01/23 Previous Rx's ?Medication ?Instructions ?Recorded oxycodone 5 mg tablet 5 mg PO Q6H PRN pain #20 tabs 12/02/23 cyclobenzaprine 10 mg tablet 10 mg PO TID 7 days #21 tabs 02/22/24 oxycodone-acetaminophen 5 mg-325 1 tab PO Q6H #14 tabs 02/22/24 mg tablet (Percocet) Allergies Allergy/AdvReac Type Severity Reaction Status Date / Time pneumococcal vaccine Allergy Unknown Verified 09/12/23 10:21 Opioid HPI Opioid Management Most Recent Opioid Data: Last Pain Scale 9 02/22/24 13:35 Last Pain Intensity 6 12/02/23 10:20 Last ED Pain Assessment 02/22/24 13:35 Last MAR Pain Assessment 02/22/24 13:22 Last ORT Total Score 1 12/01/23 18:37 Last ORT Risk Category Low Risk 12/01/23 18:37 Review of Systems ROS Status of ROS 10 or more systems reviewed and unremark able except as noted in history and below PFSH PFS Medical History (Updated 02/22/24 @ 13:59 by Eda Leary DO) Depression ?F32.A - Depression, unspecified (ICD-10) Impaired mobility ?Z74.09 - Other reduced mobility (ICD-10) Intractable low back pain ?M54.59 - Other low back pain (ICD-10) Surgical History (Updated 12/01/23 @ 18:50 by Jesse Schwartz) H/O repair of rotator cuff ?Z98.890 - Other specified postprocedural states (ICD-10) Hx of nasal septoplasty ?Z98.890 - Other specified postprocedural states (ICD-10) Hx of tonsillectomy ?Z90.89 - Acquired absence of other organs (ICD-10) Social History Highest level of school completed/degree received: high school graduate Exam Narrative Exam Narrative: Time Seen: [] Vital Signs: [Per nurse's notes.] General: [Alert] Skin: [Warm, dry, no rash.] Head: [Normocephalic, atraumatic.] Neck: [Supple, trachea midline.] Eye: [Pupils are equal, round and reactive to light, extraocular movements are intact, normal conjunctiva.] Ears, nose, mouth and throat: oral mucosa moist. Cardiovascular: [Regular rate and rhythm, no murmur.] Respiratory: [Lungs are clear to auscultation, respirations are non-labored, breath sounds are equal.] Chest wall: [No tenderness, no deformity.] Gastrointestinal: [Soft, nontender, non distended, normal bowel sounds.] MSK: 5 out of 5 muscle strength x 4 extremities no calf pain or edema. Patient reports decreased sensation in his toes which she states is normal when his back pain is flared up. Normal sensation in the lower legs and normal distal pulses. Tenderness in the lumbar region around L3-L5 Lymphatics: [No lymphadenopathy.] Psychiatric: [Cooperative, appropriate mood & affect.] Neurological: [Alert and oriented to person, place, time, and situation, no focal neurological deficit observed.] Constitutional Vital Signs, click to edit/add: Last Vital Signs Temp 97.9 F 02/22/24 12:34 Pulse 68 02/22/24 14:09 Resp 14 02/22/24 14:09 BP 137/91 02/22/24 12:34 Pulse Ox 98 02/22/24 14:09 O2 Del Method Room Air 02/22/24 14:09 Course Vital Signs Vital signs: Vital Signs Temperature 97.9 F 02/22/24 12:34 Pulse Rate 79 02/22/24 12:34 Respiratory Rate 18 02/22/24 12:34 Blood Pressure 137/91 02/22/24 12:34 Pulse Oximetry 97 02/22/24 12:34 Oxygen Delivery Method Room Air 02/22/24 12:34 Temperature 97.9 F 02/22/24 12:34 Pulse Rate 68 02/22/24 14:09 Respiratory Rate 14 02/22/24 14:09 Blood Pressure 137/91 02/22/24 12:34 Pulse Oximetry 98 02/22/24 14:09 Oxygen Delivery Method Room Air 02/22/24 14:09 Medical Decision Making MDM Narrative Medical decision making narrative: Patient was feeling better after pain medication and muscle relaxer. He requested a work note for today and tomorrow which was provided. Will send him home with pain medication and muscle relaxers. He states he does not do well on any sort of long-term steroid so only 1 dose of steroids was given here today. [facility] and [facility]. Return to ED if worsening symptoms. Follow-up with work/occupational health concerning work and disability. Patient ambulated out of the ED in no acute distress. Differential Diagnosis Differential Diagnosis: Lumbar strain lumbar radiculopathy Medical Records Medical records reviewed: Yes I reviewed the patient's medical records Discharge Plan Discharge Stand Alone Forms: Portal Instructions Chief Complaint: Extremity Problem, Nontraumatic Clinical Impression: Acute lumbar radiculopathy Patient Disposition: Home, Self-Care Time of Disposition Decision: 13:59 Condition: Good Mode of Transportation: Private Vehicle Prescriptions / Home Meds: New cyclobenzaprine 10 mg tablet 10 mg PO TID 7 Days Qty: 21 0RF oxycodone-acetaminophen [Percocet] 5-325 mg tablet 1 tab PO Q6H Qty: 14 0RF No Action trazodone 50 mg tablet 50 mg PO BEDTIME paroxetine HCl 10 mg tablet 20 mg PO DAILY cyclobenzaprine 5 mg tablet 5 mg PO BID gabapentin 300 mg capsule 300 mg PO BID prednisone 20 mg tablet 40 mg PO BID oxycodone 5 mg tablet 5 mg PO Q6H PRN (Reason: pain) Qty: 20 0RF Rx Instructions: Take 1 to 2 tabs every 6 hrs as needed for pain. Print Language: Macedonian Instructions: Acute Low Back Pain (ED) Referrals: Physician,Non-Staff, MD [Primary Care Provider] - 1 week Discharge Date/Time: 02/22/24 14:16
[2024-02-22] MEDS: HYDROMORPHONE HCL 0.5 MG/0.5 ML SYRINGE IM (13:22)
[2024-02-22] MEDS: ORPHENADRINE 60 MG/ 2 ML VIAL IM (13:22)
[2024-02-22] MEDS: DEXAMETHASONE SOD PHOS 10 MG/ML VIAL IM (13:23)
[2024-02-22 14:09] VITALS: PULSE 68; O2SAT 98
== END 2024-02-22 14:16 | disposition home or self-care (01) ==
PROVIDERS: Emergency Provider Emergency Medicine
DX: M54.16 Radiculopathy, lumbar region (principal)
CPT/HCPCS: 96372; 99284; J1100; J1170; J2360

== ENCOUNTER 2024-08-19 15:50 | Emergency (ER) | payer OTHER, SELFPAY ==
[2024-08-19 15:53] VITALS: BP 148/94; PULSE 98; TEMP 36.8; O2SAT 98; BMI 35.7
--- OUTSIDE RECORDS SUMMARY | 2024-08-19 15:59 | XMS_ITS | CCD ---
Author Organization [facility] Care Team Providers Care Night Warehouse Manager Name Role Phone SEN ROTH Unavailable Unavailabl e FOABHINAV STEWART Unavailable Unavailable SEN ROTH S Unavailable Unavailabl e ABEBE SANCHEZ Unavailable Unavailable SEN ROTH Unavailable Unavailabl e FOABHINAV STEWART Unavailable Unavailable SEN ROTH Unavailable Unavailabl e SOREN BORGES Unavailable Unavailable STEENHOFF, RADHA Admitting Unavailable SELF, REFERRED Referring Unavailable [facility] Primary Care Unavailable BALDWINNovember Attending Unavailable BALDWINNovember Surgeon Unavailable HI Procedure Practitioner Unavailab STEVEN Galvan Admitting Unavailable STEVEN ALVES Attending Unavailable [facility] ZIMMERMAN Primary Care Unavailable SELF, REFERRED Referring Unavailable STECLAIRE VIDALOTHY Admitting Unavailable CARLIE RADHA Attending Unavailable [facility] ZIMMERMAN Primary Care Unavailable SELF, REFERRED Referring Unavailable Arnaud PABON, Madelyn Quispe Attending Unavailable Joy PABON, Melany Boateng Attending Unavailable [place] Attending UnavailMD Brett Astudillo Attending Unadanielle LYNCHFRAME EXPANDER, Tena Joy Attending Mahogany ARTIE Patel Attending Unavailable NO PCP, NO PCP Primary Care Unavailable No Pcp, No Pcp Primary Care Provider Unavailabl e NO PCP, NO PCP Primary Care Unavailable NO PCP, NO PCP Primary Care Unavailable VIPIN OSBORN Attending Unavailable VIPIN OSBORN Attending Unavailable VIPIN OSBORN Referring Unavailable NO PCP, NO PCP Primary Care Unavailable VIPIN OSBORN Attending Unavailable VIPIN OSBORN Referring Unavailable NO PCP, NO PCP Primary Care Unavailable NO PCP, NO PCP Primary Care Unavailable SONDRA MAC Attending Unavailable YVONNE TSANG Attending Unavailable RIVERA, ABEL E Referring Unavailable NO PCP, NO PCP Primary Care Unavailable NO PCP, NO PCP Primary Care Unavailable RIVERA, ABEL E Attending Unavailable RIVERA, ABEL E Referring Unavailable NO PCP, NO PCP Primary Care Unavailable RIVERA ABEL E Admitting Unavailable RIVERA, ABEL E Attending Unavailable RIVERA, ABEL E Referring Unavailable NO PCP, NO PCP Primary Care Unavailable YVONNE TSANG Attending Unavailable RIVERA, ABEL E Referring Unavailable NO PCP, NO PCP Primary Care Unavailable RIVERA, ABEL E Attending Unavailable RIVERA, ABEL E Referring Unavailable NO PCP, NO PCP Primary Care Unavailable RIVERA, ABEL E Admitting Unavailable RIVERA, ABEL E Attending Unavailable RIVERA, ABEL E Referring Unavailable NO PCP, NO PCP Primary Care Unavailable NO PCP, NO PCP Primary Care Unavailable ERIBERTO DUNCAN Attending Unavailable RIVERA, ABEL E Referring Unavailable NO PCP, NO PCP Primary Care Unavailable Allergies Allergy Classification Reported Allergen(s) Allergy Type Date of Onset Reaction(s) Facility (1 source) Meperidine Drug Allergy 9 [facility] Repository (1 source) Nalbuphine Drug Allergy 9 [facility] Repository (1 source) PNUEMONIA VACINE; Translations: [PNUEMONIA VACINE] Propensity to adverse reactions (disorder) 9 [facility] Repository (1 source) pneumococcal vaccines; Translations: [pneumococcal vaccines] Propensity to adverse reactions to drug (disorder) [facility] Repository (1 source) Pneumovax 23; Translations: [Pneumovax 23] Propensity to adverse reactions to drug (disorder) [facility] Repository (6 sources) Pneumococcal vaccine; Translations: [PNEUMOCOCCAL 23-LOS PS VACCINE] Drug Allergy 2 [facility] Repository (5 sources) predniSONE; Translations: [PREDNISONE] Drug Allergy 4 [facility] Medications Current Medications Medication Drug Class(es) Dates Sig (Normalized) Sig (Original) acetaminophen 325 mg / butalbital 50 mg / caffeine 40 mg oral tablet (4 sources) Barbiturate, Central Nervous System Stimulant, Methylxanthine Start: 05-12-2024 take 1 tablet by mouth every four hours as needed for headache butalbital-aceta minophen-caff (FIORICET, ESGIC) 50-325-40 mg per tablet Take 1 tablet by mouth every 4 (four) hours as needed for headaches. 15 tablet 05/12/2024 Active acetaminophen 300 mg / codeine phosphate 30 mg oral tablet (4 sources) Opioid Agonist take 1 tablet by mouth every six hours as needed for pain acetaminophen-co deine (TYLENOL #3) 300-30 mg per tablet Take 1 tablet by mouth every 6 (six) hours as needed for pain. Active acetaminophen 325 mg / HYDROcodone bitartrate 5 mg oral tablet (1 source) Opioid Agonist Start: 08-13-2024 End: 08-16-2024 HYDROcodone-acet aminophen (NORCO) 5-325 mg per tablet Indications: Chronic midline low back pain with right-sided sciatica Take 1 tablet by mouth every 6 (six) hours as needed for pain for up to 3 days. Max Daily Amount: 4 tablets 12 tablet 08/13/2024 08/16/2024 Active ibuprofen 800 mg oral tablet (4 sources) Nonsteroidal Anti-inflammatory Drug Start: 09-30-2023 take 1 tablet by mouth every six hours as needed for pain ibuprofen (MOTRIN) 800 mg tablet Take 1 tablet (800 mg total) by mouth every 6 (six) hours as needed for pain. 30 tablet 09/30/2023 Active PARoxetine hydrochloride 20 mg oral tablet (4 sources) Serotonin Reuptake Inhibitor take 1 tablet by mouth once daily in the morning PARoxetine (PAXIL) 20 mg tablet Take 1 tablet (20 mg total) by mouth every morning. Active tiZANidine 4 mg oral tablet (2 sources) Central alpha-2 Adrenergic Agonist Start: 08-13-2024 take 1 tablet by mouth every six hours as needed tiZANidine (ZANAFLEX) 4 mg tablet Take 1 tablet (4 mg total) by mouth every 6 (six) hours as needed for muscle spasms. 15 tablet 08/13/2024 Active Start: 06-05-2024 take 1 tablet by izabel th every eight hours as needed tiZANidine (ZANAFLEX) 4 mg tablet Take 1 tablet (4 mg total) by mouth every 8 (eight) hours as needed for muscle spasms. 90 tablet 2 06/05/2024 Active traMADol hydrochloride 50 mg oral tablet (4 sources) Opioid Agonist take 1 tablet by mouth every six hours as needed for pain traMADoL (ULTRAM) 50 mg tablet Take 1 tablet (50 mg total) by mouth every 6 (six) hours as needed for pain. Active traZODone hydrochloride 50 mg oral tablet (4 sources) Serotonin Reuptake Inhibitor take 2 tablets by mouth once daily traZODone (DESYREL) 50 mg tablet Take 2 tablets (100 mg total) by mouth nightly. Active Completed/Discontinued Medications Medication Drug Class(es) Dates Sig (Normalized) Sig (Original) baclofen 10 mg oral tablet (2 sources) gamma-Aminobuty jose d Acid-ergic Agonist Start: 05-30-2024 End: 06-05-2024 take 1 tablet by mouth in the morning, then take 1 tablet by mouth at bedtime baclofen (LIORESAL) 10 mg tablet Take 1 tablet (10 mg total) by mouth in the morning and 1 tablet (10 mg total) before bedtime. 60 tablet 05/30/2024 06/05/2024 Discontinued cyclobenzaprine hydrochloride 10 mg oral tablet (3 sources) Muscle Relaxant Start: 11-29-2023 End: 06-05-2024 take 1 tablet by mouth twice daily as needed for muscle spasms cyclobenzaprine (FLEXERIL) 10 mg tablet Take 1 tablet (10 mg total) by mouth 2 (two) times a day as needed for muscle spasms. 10 tablet 11/29/2023 06/05/2024 Discontinued Problems Active Problems Problem Classification Problem Date Documented Da te Episodic/Chronic Abdominal pain (1 source) Generalized abdominal pain; Translations: [Generalized abdominal pain] Onset: 11-25-2017 Episodic Headache; including migraine (1 source) Headache; including migraine; Translations: [Headache, unspecified] Onset: 05-12-2024 Nausea and vomiting (1 source) Nausea with [...] Translations: [Other chronic pain] Onset: 11-29-2023 Chronic Spondylosis; intervertebral disc disorders; other back problems (11 sources) Lumbosacral spondylosis without myelopathy; Translations: [Spondylosis without myelopathy or radiculopathy, lumbosacral region] Onset: 05-15-2024 05-15-2024 Chronic Unclassified (1 source) Other specified disorders of teeth and supporting structures; Translations: [Other specified disorders of teeth and supporting structures] Onset: 05-01-2017 Unclassified (1 source) Mass Onset: 11-29-2023 Unclassified (1 source) Low back pain, unspecified; Translations: [Low back pain, unspecified] Onset: 11-29-2023 Unclassified (1 source) back pain 3 days Onset: 11-29-2023 Past or Other Problems Problem Classification Problem Date Documented Da te Episodic/Chronic Disorders of teeth and jaw (1 source) Dental caries, unspecified; Translations: [Dental caries, unspecified] Onset: 08-04-2017 Episodic Headache; including migraine (1 source) Headache Onset: 05-12-2024 Episodic Nonspecific chest pain (2 sources) Chest pain, unspecified; Translations: [Chest pain] Onset: 12-27-2023 Episodic Other lower respiratory disease (1 source) Shortness of breath; Translations: [Shortness of breath] Onset: 12-27-2023 Episodic Spondylosis; intervertebral disc disorders; other back problems (4 sources) Neck pain; Translations: [Lumbago with sciatica, right side] Onset: 09-30-2023 Episodic Results Test Name Value Interpretation Reference Range Facility BASIC METABOLIC PANLon 12-26 Anion gap [Moles/Vol] 7 mmol/L Normal 5-15 [facility] Comment on above: Performed By: #### C MIROSLAVA GOLDSTEIN, 21757-4 #### [facility] ([id number]) [address] [place] [address]96 Calcium [Mass/Vol] 8.7 mg/dL Normal 8.5-10.5 [facility] Comment on above: Performed By: #### C ANGELITA BMP, 99166-7 #### [facility] ([id number]) [address] [place] [address] 90625 Chloride [Moles/Vol] 106 mmol/L Normal 98-109 [facility] Comment on above: Performed By: #### C MIROSLAVA GOLDSTEIN, 28861-4 #### [facility] ([id number]) [address] [place] [address] 85502 CO2 [Moles/Vol] 25 mmol/L Normal 22-32 [facility] Comment on above: Performed By: #### C MIROSLAVA GOLDSTEIN, 14023-5 #### [facility] ([id number]) [address] [place] [address] 80238 Creatinine [Mass/Vol] 1.03 mg/dL Normal 0.70-1.20 [facility] Comment on above: Result Comment: METH OD TRACEABLE TO IDMS STANDARD Performed By: #### C MIROSLAVA GOLDSTEIN, 30918-8 #### [facility] ([id number]) [address] [place] [address] 65612 eGFR (CKD-EPI) NON-RACE DEPENDENT >90 Normal >59 [facility] Comment on above: Result Comment: Reported eGFR is based on the CKD-EPI 2020 equation that does not use a race coefficient. Performed By: #### C MIROSLAVA GOLDSTEIN, 35854-9 #### [facility] ([id number]) [address] [place] [address] 46132 Glucose [Mass/Vol] 130 mg/dL High 65-99 [facility] Comment on above: Performed By: #### C MIROSLAVA GOLDSTEIN, 68511-5 #### [facility] ([id number]) [address] [place] [address] 81282 Potassium [Moles/Vol] 3.6 mmol/L Normal 3.5-5.0 [facility] Comment on above: Performed By: #### C MIROSLAVA GOLDSTEIN, 86662-1 #### [facility] ([id number]) [address] [place] [address] 92361 Sodium [Moles/Vol] 138 mmol/L Normal 134-146 [facility] Comment on above: Performed By: #### MIROSLAVA Mckinney BCA, 08926-3 #### [facility] ([id number]) [address] [place] [address] 72855 Urea nitrogen [Mass/Vol] 16 mg/dL Normal 5-23 [facility] Comment on above: Performed By: #### MIROSLAVA Mckinney BCA, 99299-8 #### [facility] ([id number]) [address] [place] [address] 42829 CBC AND AUTO DIFFon 12-26- 24 ABSOLUTE BASOPHIL 0.0 X10E9/L Normal 0.0-0.2 [facility] Comment on above: Performed By: #### MIROSLAVA Mckinney BCA, 98855-6 #### [facility] ([id number]) [address] [place] [address] 05213 ABSOLUTE NEUTROPHIL 4.1 X10E9/L Normal 1.5-6.6 [facility] Comment on above: Performed By: #### MIROSLAVA Mckinney BCA, 05483-4 #### [facility] ([id number]) [address] [place] [address] 03478 Basophils/100 WBC (Bld) 0.6 % Normal [facility] Comment on above: Performed By: #### MIROSLAVA Mckinney BCA, 41848-5 #### [facility] ([id number]) [address] [place] [address] 56555 Eosinophils (Bld) [#/Vol] 0.3 10*3/uL Normal 0.0-0.4 [facility] Comment on above: Performed By: #### MIROSLAVA Mckinney BCA, 82696-5 #### [facility] ([id number]) [address] [place] [address] 19141 Eosinophils/100 WBC (Bld) 3.7 % Normal [facility] Comment on above: Performed By: #### C MIROSLAVA GOLDSTEIN, 54529-3 #### [facility] ([id number]) [address] [place] [address] 81659 Erythrocyte distribution width (RBC) [Ratio] 13.3 % Normal 11.5-15.0 [facility] Comment on above: Performed By: #### MIROSLAVA Mckinney BCA, 47838-7 #### [facility] ([id number]) [address] [place] [address] 72418 Hematocrit (Bld) [Volume fraction] 44.4 % Normal 39-49 [facility] Comment on above: Performed By: #### MIROSLAVA Mckinney BCA, 53278-1 #### [facility] ([id number]) [address] [place] [address] 64521 Hemoglobin (Bld) [Mass/Vol] 15.5 g/dL Normal 13.0-17.0 [facility] Comment on above: Performed By: #### MIROSLAVA Mckinney BCA, 98329-2 #### [facility] ([id number]) [address] [place] [address] 97291 Lymphocytes (Bld) [#/Vol] 2.2 10*3/uL Normal 1.0-3.5 [facility] Comment on above: Performed By: #### MIROSLAVA Mckinney BCA, 29390-6 #### [facility] ([id number]) [address] [place] [address] 28748 Lymphocytes/100 WBC (Bld) 30.6 % Normal [facility] Comment on above: Performed By: #### MIROSLAVA Mckinney BCA, 61027-0 #### [facility] ([id number]) [address] [place] [address] 62514 MCH (RBC) [Entitic mass] 31.2 pg Normal 27-34 [facility] Comment on above: Performed By: #### MIROSLAVA Mckinney BCA, 94634-9 #### [facility] ([id number]) [address] [place] [address] 96773 MCHC (RBC) [Mass/Vol] 34.9 g/dL Normal 32-36 [facility] Comment on above: Performed By: #### MIROSLAVA Mckinney BCA, 95914-1 #### [facility] ([id number]) [address] [place] [address] 02872 MCV (RBC) [Entitic vol] 90 fL Normal 80-100 [facility] Comment on above: Performed By: #### MIROSLAVA Mckinney BCA, 69740-4 #### [facility] ([id number]) [address] [place] [address] 66611 Monocytes (Bld) [#/Vol] 0.6 10*3/uL Normal 0-0.9 [facility] Comment on above: Performed By: #### Hank GOLDSTEIN [facility], 47594-8 #### [facility] ([id number]) [address] [place] [address] 42783 Monocytes/100 WBC (Bld) 8.3 % Normal [facility] Comment on above: Performed By: #### MIROSLAVA Mckinney BCA, 36836-3 #### [facility] ([id number]) [address] [place] [address] 71424 Neutrophils/100 WBC (Bld) 56.8 % Normal [facility] Comment on above: Performed By: #### Hank GOLDSTEIN [facility], 97834-6 #### [facility] ([id number]) [address] [place] [address] 45149 Platelet mean volume (Bld) [Entitic vol] 7.2 fL Normal 7-12 [facility] Comment on above: Performed By: #### MIROSLAVA Mckinney BCA, 13355-7 #### [facility] ([id number]) [address] [place] [address] 79399 Platelets (Bld) [#/Vol] 270 10*3/uL Normal 150-450 [facility] Comment on above: Performed By: #### C MIROSLAVA GOLDSTEIN, 52096-7 #### [facility] ([id number]) [address] [place] [address] 97415 RBC COUNT 4.96 X10E12/L Normal 4.10-5.70 [facility] Comment on above: Performed By: #### C MIROSLAVA GOLDSTEIN, 64327-6 #### [facility] ([id number]) [address] [place] [address] 74903 WBC (Bld) [#/Vol] 7.2 10*3/uL Normal 4.0-11.0 [facility] Comment on above: Performed By: #### C ANGELITA [facility], 80549-5 #### [facility] ([id number]) [address] [place] [address] CHEST WO CONT[address] CHEST WO CONT CT CHEST WO CONT CLINICAL INFORMATION: Respiratory illness, nondiagnostic xray TECHNIQUE: CT Chest without intravenous contrast. All CT scans at this facility use dose modulation, iterative reconstruction, and/or weight based dosing when appropriate to reduce radiation dose to as low as reasonably achievable. COMPARISON: No relevant prior studies available. FINDINGS: Lower neck: no significant abnormality Cardiovascular and mediastinum: The heart is not enlarged, no pericardial effusion. Normal caliber of the thoracic aorta. Lungs and pleura: Central airways are patent. The lungs are clear of consolidation, effusion, or pneumothorax. There are no sizable nodules. Upper abdomen: No significant abnormality Soft tissues and bones: No suspicious osseous lesion. There is a fibrous cortical defect involving the proximal right clavicle which is a benign lesion. Vacuum phenomenon noted within the right sternoclavicular joint. IMPRESSION: * No acute process within the chest, no pneumothorax. * Vacuum phenomenon noted within the right sternoclavicular joint, likely an incidental finding. Finalized by Mary Davis MD on 12/27/2023 8:35 PM Normal [facility] Fibrin D-dimer DDU (PPP) [Ma ss/Vol]on 12-27-2023 D DIMER <150 Normal <255 [facility] Comment on above: Result Comment: Results <255 ng/mL DDU: The presence of a VTE can safely be excluded with a negative D-Dimer result and Wells score. A negative result doesn't exclude the possibility of DIC. The test be repeated along with other diagnostic tests if the patient's symptoms persist or worsen. [email or web address] Performed By: #### 4 8066-5 #### [facility] ([id number]) [address] [place] [address] 92134 Troponin I.cardiac High sens itivity method [Mass/Vol]on 12-27-2023 3 HOUR TROP I, HIGH SENSITIVITY <2 Normal <21 [facility] Comment on above: Performed By: #### 8 9579-7 #### [facility] ([id number]) [address] [place] [address] 63632 1 HOUR TROP I, HIGH SENSITIVITY <2 Normal <21 [facility] Comment on above: Performed By: #### 8 9579-7 #### [facility] ([id number]) [address] [place] [address] 65218 TROPONIN I, HIGH SENSITIVITY <2 Normal <21 [facility] Comment on above: Performed By: #### C BCA, BMP, 73521-4 #### [facility] ([id number]) [address] [place] [address] 88281 XR CHEST 1 VWon 12-27-2023 XR CHEST 1 VW XR CHEST 1 VW Portable chest: HISTORY: Chest pain. Single view of the chest was obtained. Cardiac and mediastinal contours are within normal limits. Lungs are clear. There is no vascular congestion or effusion. Osseous structures appear intact. IMPRESSION: No acute findings. Finalized by Lj Woodard MD on 12/27/2023 7:03 PM Normal [facility] .UA Microscp Aon 04-30-2022 UA RBC Quant 0 /HPF Normal 0-5 [facility] Comment on above: Performed By: #### . Urinalysis Microscopic Auto ####[facility] [place] [address] UA WBC Quant 0 /HPF Normal 0-5 [facility] Comment on above: Performed By: #### . Urinalysis Microscopic Auto ####[id number] [place] [address] .eGFRon 04-30-2022 GFR/1.73 sq M.predicted MDRD (S/P/Bld) [Vol rate/Area] mL/min/{1.73_m2} Normal >=60 [facility] Comment on above: Order Comment: Order added by Discern rule Result Comment: [facility] have implemented the eGFR calculation [...] = years Performed By: #### E GFR ####[address] [address] Basic Metabolic Profileon Creatinine [Mass/Vol] 0.91 mg/dL Normal 0.61-1.24 [facility] Comment on above: Performed By: #### C [id number] ####[address] [address] Urea nitrogen [Mass/Vol] 10 mg/dL Normal 8-26 [facility] Comment on above: Performed By: #### C [id number] ####[address] [address] Urea nitrogen/Creatinine [Mass ratio] 11.0 mg/mg Normal 10.0-20.0 [facility] Comment on above: Performed By: #### C [id number] ####[address] [address] Anion gap [Moles/Vol] 10 mmol/L Normal 7-17 [facility] Comment on above: Performed By: #### C [id number] ####[address] [address] Calcium [Mass/Vol] 8.9 mg/dL Normal 8.5-10.3 [facility] Comment on above: Performed By: #### C [id number] ####[address] [address] Chloride [Moles/Vol] 107 mmol/L Normal 98-110 [facility] Comment on above: Performed By: #### C D:[id number] ####[address] [address] CO2 [Moles/Vol] 27 mmol/L Normal 22-32 [facility] Comment on above: Performed By: #### C D:[id number] ####[address] [address] Glucose [Mass/Vol] 102 mg/dL High 70-99 [facility] Comment on above: Performed By: #### C D:[id number] ####[address] [address] Potassium [Moles/Vol] 4.2 mmol/L Normal 3.4-4.8 [facility] Comment on above: Performed By: #### C [id number] ####[address] [address] Sodium [Moles/Vol] 140 mmol/L Normal 133-142 [facility] Comment on above: Performed By: #### C D:[id number] ####[place] [id number] CBC w/ Diffon 04-30-2022 Erythrocyte distribution width (RBC) [Ratio] 13.0 % Normal 11.6-14.8 [facility] Comment on above: Performed By: #### C BC ####[address] [address] Hematocrit (Bld) [Volume fraction] 45.2 % Normal 41.0-53.0 [facility] Comment on above: Performed By: #### C BC ####[place] [id number] Hemoglobin (Bld) [Mass/Vol] 15.5 g/dL Normal 13.5-17.5 [facility] Comment on above: Performed By: #### C BC ####[address] [address] MCH (RBC) [Entitic mass] 31.7 pg Normal 27.0-35.0 [facility] Comment on above: Performed By: #### C BC ####[address] [address] MCHC 34.4 % Normal 31.0-37.0 [facility] Comment on above: Performed By: #### C BC ####[address] [address] MCV (RBC) [Entitic vol] 92.2 fL Normal 80.0-100.0 [facility] Comment on above: Performed By: #### C BC ####[place] [id number] Platelet 237 x10*3/mcL Normal 150-350 [facility] Comment on above: Performed By: #### C BC ####[address] [address] Platelet mean volume (Bld) [Entitic vol] 8.0 fL Normal 6.7-10.6 [facility] Comment on above: Performed By: #### C BC ####[address] [address] RBC 4.90 x10*6/mcL Normal 4.30-5.80 [facility] Comment on above: Performed By: #### C BC ####[address] [address] WBC 7.2 x10*3/mcL Normal 4.5-11.0 [facility] Comment on above: Performed By: #### C BC ####[address] [address] Diff Autoon 04-30-2022 Baso Absolute 0.0 x10*3/mcL Normal 0.0-0.2 [facility] Comment on above: Performed By: #### . Automated Diff ####[address] [address] Basophils/100 WBC (Bld) 0.4 % Normal 0.0-1.2 [facility] Comment on above: Performed By: #### . Automated Diff ####[address] [address] Eos Absolute 0.2 x10*3/mcL Normal 0.0-0.4 [facility] Comment on above: Performed By: #### . Automated Diff ####[address] [address] Eosinophils/100 WBC (Bld) 2.7 % Normal 0.0-6.1 [facility] Comment on above: Performed By: #### . Automated Diff ####[address] [address] Lymph Absolute 1.4 x10*3/mcL Normal 1.0-4.8 [facility] Comment on above: Performed By: #### . Automated Diff ####[address] [address] Lymphocytes/100 WBC (Bld) 19.7 % Low 27.2-40.8 [facility] Comment on above: Performed By: #### . Automated Diff ####[address] [address] [place] Absolute 0.7 x10*3/mcL Normal 0.3-1.1 [facility] Comment on above: Performed By: #### . Automated Diff ####[address] [address] Monocytes/100 WBC (Bld) 9.3 % Normal 4.7-13.9 [facility] Comment on above: Performed By: #### . Automated Diff ####[address] [address] Neutro Absolute 4.9 x10*3/mcL Normal 1.8-7.7 [facility] Comment on above: Performed By: #### . Automated Diff ####[address] [address] Neutro Auto 67.9 % Normal 47.2-70.8 [facility] Comment on above: Performed By: #### . Automated Diff ####[address] [address] ED Clinical Summaryon 2021 ED Clinical Summary [address] [id number] ED Clinical Summary Person Information Name: Janina Silva II [facility] Age: 31 Years : 1990 Sex: Male PCP: Marital Status: Single Race: White Ethnicity: Not or Language: Citizen Of [place] Visit Reason: Abdominal pain; Abdominal pain Acuity: 3 Enc Type: Emergency Med Service: Emergency Medicine Arrival: 04/30/2022 06:01:53 Discharge: 04/30/2022 09:31:00 LOS: 000 03:30 Checkin: 04/30/2022 06:01:53 Checkout: 04/30/2022 09:31:00 Dispo Type: Home or Self Care Address: [address] [facility] [address] Provider Notes: History of Present Illness Patient [...] range between ( 27.2 and 40.8 ) [place] Auto: 9.3 % -- Normal range between [...] range between ( 41.0 and 53.0 ) [place] Absolute: 0.7 x10 MCH: 31.7 pg -- [...] -- Normal (more content not included)... Normal [facility] ED Note-Physicianon 04-30-20 ED Note-Physician 31-year-old seen [...] 12 hours. Electronically signed by Jerry KRISHNAMURTHY DO Fran Loomis 04/30/22 09:06 EDT Normal [facility] ED Note-Physician Chief Complaint Patient complains of [...] 04/30/22 06:25 19.7 Low 01/18/22 18.7 Low [place] Auto 04/30/22 06:25 9.3 01/18/22 6.3 Eos Auto 04/30/22 06:25 2.7 01/18/22 3.7 Basophil Auto 04/30/22 06:25 0.4 01/18/22 0.4 Neutro Absolute 04/30/22 06:25 4.9 01/18/22 6.6 Lymph Absolute 04/30/22 06:25 1.4 01/18/22 1.7 [place] Absolute 04/30/22 06:25 0.7 01/18/22 0.6 Eos [...] signed by (more content not included)... Normal [facility] Hep Func Panelon 04-30-2022 Albumin [Mass/Vol] 4.2 g/dL Normal 3.2-4.9 [facility] Comment on above: Performed By: #### L IVER ####[address] [address] Alk Phos 65 IU/L Normal 32-91 [facility] Comment on above: Performed By: #### L IVER ####[address] [address] ALT [Catalytic activity/Vol] 17 U/L Normal 17-63 [facility] Comment on above: Performed By: #### L IVER ####[address] [address] AST [Catalytic activity/Vol] 16 U/L Normal 15-41 [facility] Comment on above: Performed By: #### L IVER ####[address] [address] Bili Direct 0.1 mg/dL Normal 0.1-0.5 [facility] Comment on above: Performed By: #### L IVER ####[address] [address] Bili Indirect 0.5 mg/dL Normal 0.0-1.0 [facility] Comment on above: Performed By: #### L IVER ####[address] [address] Bili Total 0.6 mg/dL Normal 0.3-1.2 [facility] Comment on above: Performed By: #### L APARNAER ####[address] [address] Protein [Mass/Vol] 6.7 g/dL Normal 6.5-8.1 [facility] Comment on above: Performed By: #### L GISELE ####[address] [address] Lipaseon 04-30-2022 Lipase Lvl 37 IU/L Normal 22-51 [facility] Comment on above: Performed By: #### L IP ####[address] [address] UA w Culture if Indon 2021 Color (U) Colorless Normal [facility] Comment on above: Performed By: #### U CI ####[address] [address] Ketones Ql (U) Negative Normal Negative [facility] Comment on above: Performed By: #### U CI ####[address] [address] UA Blood Negative Normal Negative [facility] Comment on above: Performed By: #### U CI ####[address] [address] UA Clarity Clear Normal [facility] Comment on above: Performed By: #### U CI ####[address] [address] UA Glucose Normal Normal Negative [facility] Comment on above: Performed By: #### U CI ####[address] [address] UA Leukocyte Esterase Negative Normal Negative [facility] Comment on above: Performed By: #### U CI ####[address] [address] UA Nitrite Negative Normal Negative [facility] Comment on above: Performed By: #### U CI ####[address] [place] [address] UA pH 6.0 Normal 4.5 - 7.8 [facility] Comment on above: Performed By: #### U CI ####[address] [address] UA Protein Negative Normal Negative [facility] Comment on above: Performed By: #### U CI ####[address] [place] [address] UA Source Clean Catch Normal [facility] Comment on above: Performed By: #### U CI ####[address] [address] UA Spec Grav 1.019 Normal 1.003-1.035 [facility] Comment on above: Performed By: #### U CI ####[address] [address] UA Urobilinogen Normal Normal 0.2 - 1.0 [facility] Comment on above: Performed By: #### U CI ####[address] [address] Urobilinogen (U) [Mass/Vol] Negative Normal Negative [facility] Comment on above: Performed By: #### U CI ####[address] [address] .UA Microscp Aon 01-18-2022 UA Mucus Present Abnormal Absent [facility] Comment on above: Performed By: #### C [id number] #### [address] [address] UA RBC Quant 0 /HPF Normal 0-5 [facility] Comment on above: Performed By: #### C [id number] #### [address] [address] UA Squepi Cells Quant <1 Normal 0-29 [facility] Comment on above: Performed By: #### C [id number] #### [address] [place] [address] UA WBC Quant 1 /HPF Normal 0-5 [facility] Comment on above: Performed By: #### C [id number] #### [address] [address] .eGFRon 01-18-2022 GFR/1.73 sq M.predicted MDRD (S/P/Bld) [Vol rate/Area] mL/min/{1.73_m2} Normal >=60 [facility] Comment on above: Result Comment: [facility] Laboratories have implemented the eGFR calculation [...] = years Performed By: #### E GFR ####[place] [id number] CBC w/ Diffon 01-18-2022 Erythrocyte distribution width (RBC) [Ratio] 14.3 % Normal 11.6-14.8 [facility] Comment on above: Performed By: #### C BC ####[place] [id number] Hematocrit (Bld) [Volume fraction] 48.0 % Normal 41.0-53.0 [facility] Comment on above: Performed By: #### C BC ####[place] [id number] Hemoglobin (Bld) [Mass/Vol] 16.6 g/dL Normal 13.5-17.5 [facility] Comment on above: Performed By: #### C BC ####[place] [id number] MCH (RBC) [Entitic mass] 32.4 pg Normal 27.0-35.0 [facility] Comment on above: Performed By: #### C BC ####[place] [id number] MCHC 34.6 % Normal 31.0-37.0 [facility] Comment on above: Performed By: #### C BC ####[place] [id number] MCV (RBC) [Entitic vol] 93.7 fL Normal 80.0-100.0 [facility] Comment on above: Performed By: #### C BC ####[place] [id number] Platelet 256 x10*3/mcL Normal 150-350 [facility] Comment on above: Performed By: #### C BC ####[place] [id number] Platelet mean volume (Bld) [Entitic vol] 8.6 fL Normal 6.7-10.6 [facility] Comment on above: Performed By: #### C BC ####[address] [address] RBC 5.13 x10*6/mcL Normal 4.30-5.80 [facility] Comment on above: Performed By: #### C BC ####[address] [address] WBC 9.3 x10*3/mcL Normal 4.5-11.0 [facility] Comment on above: Performed By: #### C BC ####[address] [address] CMPon 01-18-2022 Albumin [Mass/Vol] 4.4 g/dL Normal 3.2-4.9 [facility] Comment on above: Performed By: #### C OMP ####[address] [address] Albumin/Globulin [Mass ratio] 1.6 {ratio} Normal 1.1-2.2 [facility] Comment on above: Performed By: #### C OMP ####[address] [address] Alk Phos 63 IU/L Normal 32-91 [facility] Comment on above: Performed By: #### C OMP ####[address] [address] ALT [Catalytic activity/Vol] 24 U/L Normal 17-63 [facility] Comment on above: Performed By: #### C OMP ####[address] [address] Anion gap [Moles/Vol] 11 mmol/L Normal 7-17 [facility] Comment on above: Performed By: #### C OMP ####[address] [address] AST [Catalytic activity/Vol] 16 U/L Normal 15-41 [facility] Comment on above: Performed By: #### C OMP ####[address] [address] Bili Total 0.2 mg/dL Low 0.3-1.2 [facility] Comment on above: Performed By: #### C OMP ####[address] [address] Calcium [Mass/Vol] 9.0 mg/dL Normal 8.5-10.3 [facility] Comment on above: Performed By: #### C OMP ####[address] [address] Chloride [Moles/Vol] 106 mmol/L Normal 98-110 [facility] Comment on above: Performed By: #### C OMP ####[address] [address] CO2 [Moles/Vol] 24 mmol/L Normal 22-32 [facility] Comment on above: Performed By: #### C OMP ####[address] [address] Creatinine [Mass/Vol] 0.83 mg/dL Normal 0.61-1.24 [facility] Comment on above: Performed By: #### C OMP ####[address] [address] Glucose [Mass/Vol] 123 mg/dL High 70-99 [facility] Comment on above: Performed By: #### C OMP ####[address] [address] Potassium [Moles/Vol] 3.8 mmol/L Normal 3.4-4.8 [facility] Comment on above: Performed By: #### C OMP ####[address] [address] Protein [Mass/Vol] 7.2 g/dL Normal 6.5-8.1 [facility] Comment on above: Performed By: #### C OMP ####[address] [address] Sodium [Moles/Vol] 137 mmol/L Normal 133-142 [facility] Comment on above: Performed By: #### C OMP ####[address] [address] Urea nitrogen [Mass/Vol] 13 mg/dL Normal 8-26 [facility] Comment on above: Performed By: #### C OMP ####[address] [address] Urea nitrogen/Creatinine [Mass ratio] 15.7 mg/mg Normal 10.0-20.0 [facility] Comment on above: Performed By: #### C OMP ####[address] [address] Diff Autoon 01-18-2022 Baso Absolute 0.0 x10*3/mcL Normal 0.0-0.2 [facility] Comment on above: Performed By: #### . Automated Diff ####[address] [address] Basophils/100 WBC (Bld) 0.4 % Normal 0.0-1.2 [facility] Comment on above: Performed By: #### . Automated Diff ####[address] [address] Eos Absolute 0.3 x10*3/mcL Normal 0.0-0.4 [facility] Comment on above: Performed By: #### . Automated Diff ####[address] [address] Eosinophils/100 WBC (Bld) 3.7 % Normal 0.0-6.1 [facility] Comment on above: Performed By: #### . Automated Diff ####[address] [address] Lymph Absolute 1.7 x10*3/mcL Normal 1.0-4.8 [facility] Comment on above: Performed By: #### . Automated Diff ####[address] [address] Lymphocytes/100 WBC (Bld) 18.7 % Low 27.2-40.8 [facility] Comment on above: Performed By: #### . Automated Diff ####[address] [address] [place] Absolute 0.6 x10*3/mcL Normal 0.3-1.1 [facility] Comment on above: Performed By: #### . Automated Diff ####[address] [address] Monocytes/100 WBC (Bld) 6.3 % Normal 4.7-13.9 [facility] Comment on above: Performed By: #### . Automated Diff ####[address] [address] Neutro Absolute 6.6 x10*3/mcL Normal 1.8-7.7 [facility] Comment on above: Performed By: #### . Automated Diff ####[address] [address] Neutro Auto 70.9 % High 47.2-70.8 [facility] Comment on above: Performed By: #### . Automated Diff ####[address] [address] ED Clinical Summaryon 2021 ED Clinical Summary [facility] [address] [place], [place] [id number] ED Clinical Summary Person Information Name: Janina Silva II [facility] Age: 31 Years : 1990 Sex: Male PCP: Marital Status: Single Race: White Ethnicity: Not or Language: Citizen Of [place] Visit Reason: Abdominal pain; Abdominal pain Acuity: 3 Enc Type: Emergency Med Service: Emergency Medicine Arrival: 01/18/2022 08:27:33 Discharge: 01/18/2022 10:24:00 LOS: 000 01:57 Checkin: 01/18/2022 08:27:33 Checkout: 01/18/2022 10:24:00 Dispo Type: Home or Self Care Address: [facility] [address] [place] [id number] Provider Notes: History of Present Illness This [...] evaluation in an emergency department in the [facility]; the patient?has not had any?diarrhea constipation melena [...] range between ( 27.2 and 40.8 ) [place] Auto: 6.3 % -- Normal range between [...] range between ( 41.0 and 53.0 ) [place] Absolute: 0.6 x10 MCH: 32.4 pg -- [...] Negative U (more content not included)... Normal [facility] ED Note-Physicianon 01-19-20 ED Note-Physician Chief Complaint [...] evaluation in an emergency department in the [facility]; the patient has not had any [...] tabs, 0 Refill(s), 01/28/22 10:11:00 EDT, Pharmacy: [facility] [id number] oxyCODONE-acetaminophe n, 1 tabs, Oral, q6hr, PRN, X 3 days, # 12 tabs, 0 Refill(s), 01/21/22 10:11:00 EDT, Pharmacy: (more content not included)... Normal [facility] Lipaseon 01-18-2022 Lipase Lvl 30 IU/L Normal 22-51 [facility] Comment on above: Performed By: #### L IP ####[facility] [place] [address] UA w Culture if Indon 2021 Color (U) Yellow Normal [facility] Comment on above: Performed By: #### U CI ####[address] [place] [address] Ketones Ql (U) Negative Normal Negative [facility] Comment on above: Performed By: #### U CI ####[address] [place] [address] UA Blood 1+ Abnormal Negative [facility] Comment on above: Performed By: #### U CI ####[address] [place] [address] UA Clarity Clear Normal [facility] Comment on above: Performed By: #### U CI ####[address] [place] [address] UA Glucose Normal Normal Negative [facility] Comment on above: Performed By: #### U CI ####[address] [place] [address] UA Leukocyte Esterase Negative Normal Negative [facility] Comment on above: Performed By: #### U CI ####[address] [place] [address] UA Nitrite Negative Normal Negative [facility] Comment on above: Performed By: #### U CI ####[address] [place] [address] UA pH 5.5 Normal 4.5 - 7.8 [facility] Comment on above: Performed By: #### U CI ####[address] [place] [address] UA Protein 20 mg/dL Normal Negative [facility] Comment on above: Performed By: #### U CI ####[address] [place] [address] UA Source Clean Catch Normal [facility] Comment on above: Performed By: #### U CI ####[address] [place] [address] UA Spec Grav 1.029 Normal 1.003-1.035 [facility] Comment on above: Performed By: #### U CI ####[address] [place] [address] UA Urobilinogen Normal Normal 0.2 - 1.0 [facility] Comment on above: Performed By: #### U CI ####[place] [id number] Urobilinogen (U) [Mass/Vol] Negative Normal Negative [facility] Comment on above: Performed By: #### U CI ####[place] [address] COV19 Rapidon 09-15-2021 Employed in healthcare? Unknown Normal [facility] Comment on above: Performed By: #### C [id number] ####[place] [address] Group care resident? No Normal [facility] Comment on above: Performed By: #### C D:[id number] ####[place] [address] In ICU? No Normal [facility] Comment on above: Performed By: #### C D:[id number] ####[place] [id number] status? Not Applicable Normal [facility] Comment on above: Performed By: #### C [id number] ####[address] [address] Reason for Rapid Test COVID Exposure Normal [facility] Comment on above: Performed By: #### C D:[id number] ####[place] [id number] SARS-CoV-2 (COVID-19) RNA ARTI+probe Ql (Unsp spec) Negative Normal Negative [facility] Comment on above: Result Comment: The 2019 [...] using the ID NOW COVID-19 test by [employer], which has received Emergency Use Authorization (EUA) [...] following links: Fact Sheet for HealthCare Providers: https://www.fda.gov/media/191182/download Fact Sheet for Patients: https://www.fda.gov/media/433952/download Performed By: #### C D:[id number] ####[place] [address] SARS-CoV-2 (COVID-19) RNA ARTI+probe Ql (Unsp spec) No Normal [facility] Comment on above: Performed By: #### C D:[id number] ####[place] [id number] SARS-CoV-2 (COVID-19) RNA ARTI+probe Ql (Unsp spec) Unknown Normal [facility] Comment on above: Performed By: #### C D:[id number] ####[place] [id number] Symptomatic as defined by CDC? Yes Normal [facility] Comment on above: Performed By: #### C D:[id number] ####[address] [address] ED Clinical Summaryon 2021 ED Clinical Summary [address] [address] ED Clinical Summary Person Information Name: Shira Janina KRISHNAMURTHY [facility] Age: 31 Years : 1990 Sex: Male PCP: Marital Status: Single Race: White Ethnicity: Not or Language: Citizen Of [place] Visit Reason: Cough; Throat pain - Adult; Throat pain Acuity: 4 Enc Type: Emergency Med Service: Emergency Medicine Arrival: 09/15/2021 06:47:41 Discharge: 09/15/2021 07:42:00 LOS: 000 00:55 Checkin: 09/15/2021 06:47:41 Checkout: 09/15/2021 07:42:00 Dispo Type: Home or Self Care Address: [address] [place] [address] Provider Notes: History of Present Illness Chief Complaint/History: Nasal congestion cough rhinorrhea mild sore throat 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 Care Team Members: Attending Physician: Brett Moody MD Consulting Physician: Referring Physician: Provider Role Assigned Unassigned Heidy DELCID, Brett Hickman ED Provider 09/15/2021 06:59:52 Grace Martínez ED Nurse 09/15/2021 07:19:10 Follow up: With: Address: When: Call the [facility] physician referral line [phone] , only if needed Discharge Orders: Discharge Patient 09/15/21 7:29:00 EST, Discharge to Home, Self, URI (upper respiratory infection) Return to Work/School 09/15/21 7:29:00 EST, 09/15/21 7:29:00 EST, COVID neg today. may return to work today or tomorrow, 09/15/21 7:29:00 EST, URI (upper respiratory infection) Patient Education Information: URI, Viral, No Abx (Adult) [facility] Poison Help line: . [facility] Hotline: [place] Tobacco Quit Line: [facility] ([place], [place]) [address]: [phone] [facility] ([place], [place]) [address]: [phone] [facility] [address] [place], [place]: [phone] Normal [facility] ED Note-Physicianon 09-15-19 ED Note-Physician Chief Complaint Pt reports he would like to be covid tested as he states he has symptoms today and family is positive. 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 Complaints of left upper mouth pain. Concerns for abscess History of Present Illness LinusJanina sheikh II is a 30 Years old Male [...] # 28 tabs, 0 Refill(s), 06/23/21 11:26:00 EST, Pharmacy: [facility] Medical Decision Making Chronic conditions NOT treated [...] (Tdap) adult/adol 07/26/2020 Given Electronically signed by Melany Muñoz 06/16/21 11:40 EST Normal [facility] BASIC METABOLIC PANELon - Calcium [Mass/Vol] 8.9 mg/dL Normal 8.6-10.3 [facility] Comment on above: Performed By: #### 3 6901, 11308, 72393 #### [facility] [address] [place] [address], [place] Chloride [Moles/Vol] 106 mmol/L Normal 98-107 [facility] Comment on above: Performed By: #### 3 6901, 18330, 00313 #### [facility] [address] [place] [address], [place] CO2 [Moles/Vol] 24 mmol/L Normal 21-31 [facility] Comment on above: Performed By: #### 3 6901, 40946, 46814 #### [facility] [address] [place] [address], [place] Creatinine [Mass/Vol] 1.00 mg/dL Normal 0.70-1.30 [facility] Comment on above: Performed By: #### 3 6901, 78971, 41720 #### [facility] [address] [place] [address], [place] GFR/1.73 sq M predicted among blacks MDRD (S/P/Bld) [Vol rate/Area] mL/min/{1.73_m2} Normal >60 [facility] Comment on above: Performed By: #### 3 690, 47670, 08318 #### [facility] [address] [place] [address], [place] GFR/1.73 sq M predicted among non-blacks MDRD (S/P/Bld) [Vol rate/Area] mL/min/{1.73_m2} Normal >60 [facility] Comment on above: Performed By: #### 3 6901, 41219, 81842 #### [facility] [address] [place] [address], [place] Glucose [Mass/Vol] 108 mg/dL High 70-100 [facility] Comment on above: Performed By: #### 3 690, 54963, 94671 #### [facility] [address] [place] [address], [facility] Potassium [Moles/Vol] 4.1 mmol/L Normal 3.5-5.1 [facility] Comment on above: Performed By: #### 3 6901, 43236, 21146 #### [facility] [address] [place] [address], [facility] Sodium [Moles/Vol] 134 mmol/L Low 136-145 [facility] Comment on above: Performed By: #### 3 6901, 47510, 78593 #### [facility] [address] [facility]. [address] Urea nitrogen [Mass/Vol] 13 mg/dL Normal 7-25 [facility] Comment on above: Performed By: #### 3 6901, 66546, 08893 #### [facility] [address] [place] [address], [facility] CBC W/DIFFon 08-20-2019 ABS BASOPHILS 0.0 10*3/uL Normal 0.0-0.2 [facility] Comment on above: Performed By: #### 5 0103 #### [facility] [address] [place] [address], [facility] ABS IMM GRANS 0.0 10*3/uL Normal 0.0-0.2 [facility] Comment on above: Performed By: #### 5 0103 #### [facility] [address] [place] [address], [facility] ABS NEUTROPHILS 8.4 10*3/uL High 1.6-7.6 [facility] Comment on above: Performed By: #### 5 0103 #### [facility] [address] [place] [address], [facility] Basophils/100 WBC (Bld) 0.4 % Normal 0.0-1.0 [facility] Comment on above: Performed By: #### 5 0103 #### [facility] [address] [facility] [place] [address], [facility] Eosinophils (Bld) [#/Vol] 0.1 10*3/uL Normal 0.0-0.5 [facility] Comment on above: Performed By: #### 5 0103 #### [facility] [address] [facility] [place] [address], [facility] Eosinophils/100 WBC (Bld) 0.6 % Normal 0.0-6.0 [facility] Comment on above: Performed By: #### 5 0103 #### [facility] [address] Erythrocyte distribution width (RBC) [Ratio] 13.3 % Normal 11.5-15.0 [facility] Comment on above: Performed By: #### 3 #### [facility] 3000 [facility]. [address] Hematocrit (Bld) [Volume fraction] 50.0 % Normal 39.0-50.0 [facility] Comment on above: Performed By: #### 5 3 #### [facility] 3000 [facility]. [address] Hemoglobin (Bld) [Mass/Vol] 16.6 g/dL Normal 13.0-17.0 [facility] Comment on above: Performed By: #### 5 3 #### [facility] [address] IMMATURE GRANS 0.4 % Normal 0.0-1.0 [facility] Comment on above: Performed By: #### 3 #### [facility] 3000 [place] [address], [facility] Lymphocytes (Bld) [#/Vol] 1.6 10*3/uL Normal 1.2-4.0 [facility] Comment on above: Performed By: #### 3 #### [facility] [address] [place] [address], [facility] Lymphocytes/100 WBC (Bld) 14.4 % Low 20.0-45.0 [facility] Comment on above: Performed By: #### 3 #### [facility] [address] [facility] [place] [address], [facility] MCH (RBC) [Entitic mass] 31.6 pg Normal 27.0-33.0 [facility] Comment on above: Performed By: #### 3 #### [facility] 3000 [place] [address], [facility] MCHC (RBC) [Mass/Vol] 33.2 g/dL Normal 32.0-35.0 [facility] Comment on above: Performed By: #### 102 #### [facility] [address] [facility] [place] [address], [facility] MCV (RBC) [Entitic vol] 95.1 fL Normal 82.0-98.0 [facility] Comment on above: Performed By: #### 3 #### [facility] 3000 [place] [address], [facility] Monocytes (Bld) [#/Vol] 1.1 10*3/uL High 0.1-1.0 [facility] Comment on above: Performed By: #### 3 #### [facility] 3000 [place] [address], [facility] MONOS 9.6 % Normal 5.0-12.0 [facility] Comment on above: Performed By: #### 3 #### [facility] 3000 [place] [address], [facility] Neutrophils/100 WBC (Bld) 74.6 % High 40.0-72.0 [facility] Comment on above: Performed By: #### 5 3 #### [facility] 3000 [place] [address], [facility] Nucleated RBC/100 WBC (Bld) [Ratio] 0 % Normal 0-0 [facility] Comment on above: Performed By: #### 5 0103 #### [facility] [address] [place] [address], [facility] PLAT CNT 219 10*3/uL Normal 150-400 [facility] Comment on above: Performed By: #### 5 0103 #### [facility] 3000 [place] [address], [facility] RBC (Bld) [#/Vol] 5.26 10*6/uL Normal 4.20-5.70 [facility] Comment on above: Performed By: #### 5 0103 #### [facility] 3000 [place] [address], [facility] WBC (Bld) [#/Vol] 11.23 10*3/uL High 4.00-10.60 [facility] Comment on above: Performed By: #### 5 0103 #### [facility] 3000 [place], [place] [id number] [place] [address] CT ABDOMEN AND PELVIS W IV C [facility] 08-20-2019 CT ABDOMEN AND PELVIS W IV CONTRAST [facility] Department of Radiology [address] [place] [id number] ======== Patient Name: JANINA SILVA : 1990 Sex: M Age: Race: White Pt. Location: [facility] Patient Status: E Ordered Date: 08/20/2019 [...] No perforation, abscess or obstruction. Electronically signed: Abena Quinones. Transcribed by: [email or web address], User Resident: Electronically Signed by: ABENA QUINONES @ 08/20/2019 05:04 PM Normal [facility] Comment on above: Order Comment: R/O A ppendicitis LIPASE BLOODon 08-20-2019 Lipase [Catalytic activity/Vol] 14 Units/L Normal 11-82 [facility] Comment on above: Performed By: #### 3 6901, [id number], [id number] #### [facility] [address] [place] [address], [place] LIVER BATTERYon 08-20-2019 Albumin [Mass/Vol] 4.1 g/dL Normal 3.5-5.7 [facility] Comment on above: Performed By: #### 3 6901, [id number], [id number] #### [facility] [address] [place] [address], [place] ALKALINE PHOSPH 69 IU/L Normal 34-104 [facility] Comment on above: Performed By: #### 3 6901, [id number], [id number] #### [facility] [address] [place] [address], [place] ALT [Catalytic activity/Vol] 16 U/L Normal 7-52 [facility] Comment on above: Performed By: #### 3 6901, 82599, 66685 #### [facility] [address] [place] [address], [place] AST [Catalytic activity/Vol] 14 U/L Normal 13-39 [facility] Comment on above: Performed By: #### 3 6901, 62352, 95990 #### [facility] [address] [place] [address], [place] Bilirubin [Mass/Vol] 0.5 mg/dL Normal 0.3-1.0 [facility] Comment on above: Performed By: #### 3 6901, 41749, 79151 #### [facility] [address] [place] [address], [place] Bilirubin.direct [Mass/Vol] 0.1 mg/dL Normal 0.0-0.2 [facility] Comment on above: Performed By: #### 3 6901, 23242, 40117 #### [facility] [address] [place] [address], [place] Protein [Mass/Vol] 6.4 g/dL Normal 6.0-8.3 [facility] Comment on above: Performed By: #### 3 6901, 02087, 93902 #### [facility] [address] [place] [address], [place] URINALYSIS REFLEXon 08-20-19 20 Appearance (U) CLEAR Normal CLEAR The [facility] Comment on above: Order Comment: Crite shaka for reflexing a culture was not met. Please call the lab at [phone] within 24 hours of collection time if culture is needed Performed By: #### 3 0965 #### [facility] [address] [place] [address], [place] Bilirubin [Mass/Vol] Negative Normal NEGATIVE [facility] Comment on above: Order Comment: Crite shaka for reflexing a culture was not met. Please call the lab at [phone] within 24 hours of collection time if culture is needed Performed By: #### 3 0965 #### [facility] [address] [place] [address], [place] BLOOD Negative Normal NEGATIVE [facility] Comment on above: Order Comment: Crite shaka for reflexing a culture was not met. Please call the lab at [phone] within 24 hours of collection time if culture is needed Performed By: #### 3 0965 #### [facility] [address] [place] [address], [place] Color (U) STRAW Abnormal YELLOW [facility] Comment on above: Order Comment: Crite shaka for reflexing a culture was not met. Please call the lab at [phone] within 24 hours of collection time if culture is needed Performed By: #### 3 0965 #### [facility] [address] [place] [address], [place] Glucose [Mass/Vol] Negative Normal NEGATIVE [facility] Comment on above: Order Comment: Crite shaka for reflexing a culture was not met. Please call the lab at [phone] within 24 hours of collection time if culture is needed Performed By: #### 3 0965 #### [facility] [address] [place] [address], [facility] KETONE TRACE Abnormal NEGATIVE [facility] Comment on above: Order Comment: Crite shaka for reflexing a culture was not met. Please call the lab at [phone] within 24 hours of collection time if culture is needed Performed By: #### 3 0965 #### [facility] [address] [facility] [place] [address], [facility] LEUK LOURDES Negative Normal NEGATIVE [facility] Comment on above: Order Comment: Crite shaka for reflexing a culture was not met. Please call the lab at [phone] within 24 hours of collection time if culture is needed Performed By: #### 3 0965 #### [facility] [address] [place] [address], [facility] MICRO NOT DONE Normal [facility] Comment on above: Order Comment: Crite shaka for reflexing a culture was not met. Please call the lab at [phone] within 24 hours of collection time if culture is needed Result Comment: Micr oscopics not performed on urines with negative chemical reactions unless requested in original order Performed By: #### 3 0965 #### [facility] [address] [facility] [place] [address], [facility] Nitrite Ql (U) Negative Normal NEGATIVE The [facility] Comment on above: Order Comment: Crite shaka for reflexing a culture was not met. Please call the lab at [phone] within 24 hours of collection time if culture is needed Performed By: #### 3 0965 #### [facility] [address] [place] [address], [facility] pH (Bld) 6.0 Normal 5.0-8.0 [facility] Comment on above: Order Comment: Crite shaka for reflexing a culture was not met. Please call the lab at [phone] within 24 hours of collection time if culture is needed Performed By: #### 3 0965 #### [facility] 3000 [place] [address], [facility] Protein (U) [Mass/Vol] Negative Normal NEGATIVE [facility] Comment on above: Order Comment: Crite shaka for reflexing a culture was not met. Please call the lab at [phone] within 24 hours of collection time if culture is needed Performed By: #### 3 0965 #### [facility] [address] [place] [address], [facility] SPEC GRAV 1.003 Low 1.015-1.020 [facility] Comment on above: Order Comment: Crite shaka for reflexing a culture was not met. Please call the lab at [phone] within 24 hours of collection time if culture is needed Performed By: #### 3 0965 #### [facility] [address] [place] [address], [facility] BASIC METABOLIC PANELon 10-0 4-2019 Calcium [Mass/Vol] 9.3 mg/dL Normal 8.6-10.3 [facility] Comment on above: Performed By: #### 0 0071 #### [facility] [address] [place] [address], [facility] Chloride [Moles/Vol] 106 mmol/L Normal 98-107 [facility] Comment on above: Performed By: #### 0 0071 #### [facility] [address] [place] [address], [facility] CO2 [Moles/Vol] 27 mmol/L Normal 21-31 [facility] Comment on above: Performed By: #### 0 0071 #### [facility] [address] [place] [address], [facility] Creatinine [Mass/Vol] 1.04 mg/dL Normal 0.70-1.30 [facility] Comment on above: Performed By: #### 0 0071 #### [facility] [address] [place] [address], [place] GFR/1.73 sq M predicted among blacks MDRD (S/P/Bld) [Vol rate/Area] mL/min/{1.73_m2} Normal >60 [facility] Comment on above: Performed By: #### 0 0071 #### [facility] [address] [place] [address], [place] GFR/1.73 sq M predicted among non-blacks MDRD (S/P/Bld) [Vol rate/Area] mL/min/{1.73_m2} Normal >60 [facility] Comment on above: Performed By: #### 0 0071 #### [facility] [address] [place] [address], [place] Glucose [Mass/Vol] 116 mg/dL High 70-100 [facility] Comment on above: Performed By: #### 0 0071 #### [facility] [address] [place] [address], [place] Potassium [Moles/Vol] 3.9 mmol/L Normal 3.5-5.1 [facility] Comment on above: Performed By: #### 0 0071 #### [facility] [address] [place] [address], [place] Sodium [Moles/Vol] 137 mmol/L Normal 136-145 [facility] Comment on above: Performed By: #### 0 0071 #### [facility] [address] [place] [address], [place] Urea nitrogen [Mass/Vol] 11 mg/dL Normal 7-25 [facility] Comment on above: Performed By: #### 0 0071 #### [facility] [address] [place] [address], [place] CBC W/DIFFon 05-11-2019 ABS BASOPHILS 0.1 10*3/uL Normal 0.0-0.2 [facility] Comment on above: Performed By: #### 5 0103 #### [facility] [address] [place] [address], [facility] ABS IMM GRANS 0.0 10*3/uL Normal 0.0-0.2 [facility] Comment on above: Performed By: #### 5 0103 #### [facility] [address] [facility] [place] [address], [facility] ABS NEUTROPHILS 5.7 10*3/uL Normal 1.6-7.6 The [facility] Comment on above: Performed By: #### 5 0103 #### [facility] [address] [place] [address], [facility] Basophils/100 WBC (Bld) 0.7 % Normal 0.0-1.0 [facility] Comment on above: Performed By: #### 5 0103 #### [facility] [address] [facility] [place] [address], [facility] Eosinophils (Bld) [#/Vol] 0.1 10*3/uL Normal 0.0-0.5 [facility] Comment on above: Performed By: #### 5 0103 #### [facility] [address] [facility] [place] [address], [facility] Eosinophils/100 WBC (Bld) 1.3 % Normal 0.0-6.0 [facility] Comment on above: Performed By: #### 5 0103 #### [facility] [address] [place] [address], [facility] Erythrocyte distribution width (RBC) [Ratio] 13.4 % Normal 11.5-15.0 [facility] Comment on above: Performed By: #### 5 0103 #### [facility] [address] [place] [address], [facility] Hematocrit (Bld) [Volume fraction] 48.3 % Normal 39.0-50.0 [facility] Comment on above: Performed By: #### 5 0103 #### [facility] [address] [facility] [place] [address], [facility] Hemoglobin (Bld) [Mass/Vol] 16.5 g/dL Normal 13.0-17.0 [facility] Comment on above: Performed By: #### 5 0103 #### [facility] [address] [place] [address], [facility] IMMATURE GRANS 0.4 % Normal 0.0-1.0 [facility] Comment on above: Performed By: #### 5 0103 #### [facility] [address] [place] [address], [facility] Lymphocytes (Bld) [#/Vol] 1.6 10*3/uL Normal 1.2-4.0 [facility] Comment on above: Performed By: #### 5 0103 #### [facility] [address] [place] [address], [facility] Lymphocytes/100 WBC (Bld) 18.6 % Low 20.0-45.0 [facility] Comment on above: Performed By: #### 5 0103 #### [facility] [address] [facility] [place] [address], [facility] MCH (RBC) [Entitic mass] 32.9 pg Normal 27.0-33.0 [facility] Comment on above: Performed By: #### 5 0103 #### [facility] [address] [facility] [place] [address], [facility] MCHC (RBC) [Mass/Vol] 34.2 g/dL Normal 32.0-35.0 [facility] Comment on above: Performed By: #### 5 3 #### [facility] [address] [place] [address], [facility] MCV (RBC) [Entitic vol] 96.2 fL Normal 82.0-98.0 [facility] Comment on above: Performed By: #### 5 0103 #### [facility] [address] [facility] [place] [address], [facility] Monocytes (Bld) [#/Vol] 0.9 10*3/uL Normal 0.1-1.0 [facility] Comment on above: Performed By: #### 5 0103 #### [facility] [address] [place] [address], [facility] MONOS 11.2 % Normal 5.0-12.0 [facility] Comment on above: Performed By: #### 5 3 #### [facility] [address] [place] [address], [facility] Neutrophils/100 WBC (Bld) 67.8 % Normal 40.0-72.0 [facility] Comment on above: Performed By: #### 5 3 #### [facility] [address] [place] [address], [facility] Nucleated RBC/100 WBC (Bld) [Ratio] 0 % Normal 0-0 [facility] Comment on above: Performed By: #### 5 3 #### [facility] [address] [facility] [place] [address], [facility] PLAT CNT 214 10*3/uL Normal 150-400 [facility] Comment on above: Performed By: #### 5 3 #### [facility] [address] [place] [address], [facility] RBC (Bld) [#/Vol] 5.02 10*6/uL Normal 4.20-5.70 [facility] Comment on above: Performed By: #### 5 3 #### [facility] [address] [place] [address], [facility] WBC (Bld) [#/Vol] 8.43 10*3/uL Normal 4.00-10.60 The [facility] Comment on above: Performed By: #### 5 0103 #### [address] BRAIN WO CONTRASTon 05-11 CT BRAIN WO CONTRAST [facility] Department of Radiology [address] [place] [phone] ======== Patient Name: JANINA SILVA : 1990 Sex: M Age: Race: White Pt. Location: [facility] Patient Status: E Ordered Date: 05/11/2019 [...] disease Electronically signed by:Juan Camarillo. Transcribed by: [email or web address], User Resident: Electronically Signed by: JUAN CAMARILLO @ 05/11/2019 12:30 PM Normal [facility] Comment on above: Order Comment: R/O THO Escobar Basic Metabolic Profon 11-25 (cont.) Normal [facility] Comment on above: Result Comment: Aver age GFR for 20-29 years old: 116 mL/min/1.73sq mChronic Kidney Disease: <60 mL/min/1.73sq mKidney failure: <15 mL/min/1.73sq meGFR calculated using average adult body mass. Additional eGFR calculator available at:http://www.ip.access.Crowdbooster/multiple_crcl_2012.htmPerformed at [facility], [address] [place] [address] Anion gap 13 mmol/L Normal 9-17 [facility] Calcium 9.3 mg/dL Normal 8.6-10.4 [facility] Chloride 103 mmol/L Normal 98-107 [facility] CO2 27 mmol/L Normal 20-31 [facility] Creatinine 0.78 mg/dL Normal 0.70-1.20 [facility] eGFR (non-black) mL/min/{1.73_m2} Normal >60 [facility] Glucose mass conc 105 mg/dL High 70-99 [facility] Potassium molar conc 4.2 mmol/L Normal 3.7-5.3 [facility] Sodium 143 mmol/L Normal 135-144 [facility] Urea nitrogen 10 mg/dL Normal 6-20 [facility] BUN/CRE Ratio NOT REPORTED Normal - [facility] Staging: NOT REPORTED Normal [facility] CBC with Diffon 11-25-2017 Abs. Basophil 0.10 k/uL Normal 0.0-0.2 [facility] Comment on above: Result Comment: Perf ormed at [facility], [address] [place] [address] Abs.Neutrophil (Seg) 5.30 k/uL Normal 1.8-7.7 [facility] Basophils/100 WBC Auto (Bld) 1 % Normal 0-2 [facility] Eosinophils 0.40 10*3/uL Normal 0.0-0.4 [facility] Eosinophils/100 leukocytes 5 % High 1-4 [facility] Erythrocyte distribution width Auto Ratio (RBC) 13.5 % Normal 12.5-15.4 [facility] Erythrocytes (RBC) 5.23 10*6/uL Normal 4.5-5.9 [facility] Hematocrit (HCT) 49.7 % Normal 41-53 [facility] Hemoglobin mass conc (Bld) 17.0 g/dL Normal 13.5-17.5 [facility] Lymphocytes 2.20 10*3/uL Normal 1.0-4.8 [facility] Lymphocytes/100 leukocytes 25 % Normal 24-44 [facility] MCH 32.4 pg Normal 26-34 [facility] MCHC mass conc (RBC) 34.2 g/dL Normal 31-37 [facility] MCV 94.9 fL Normal 80-100 [facility] Monocytes 0.80 10*3/uL Normal 0.1-1.2 [facility] Monocytes/100 leukocytes 9 % Normal 2-11 [facility] Neutrophil (Seg) 60 % Normal 36-66 [facility] Platelet mean volume (PMV) 8.6 fL Normal 6.0-12.0 [facility] Platelets 253 10*3/uL Normal 140-450 [facility] WBC (Leukocytes) 8.8 10*3/uL Normal 3.5-11.0 [facility] Auto Diff Performed NOT REPORTED Normal [facility] Erythrocyte morphology NOT REPORTED Normal [facility] Erythrocytes (RBC) NOT REPORTED Normal [facility] Granulocytes/100 WBC (Bld) NOT REPORTED Normal 0.00-0.30 [facility] Immature granulocytes #/vol (Bld) NOT REPORTED Normal 0 [facility] Platelets NOT REPORTED Normal [facility] WBC Morphology NOT REPORTED Normal [facility] CT ABDOMEN PELVIS W IV CONTR [...] normal appearing appendix.Interpreted by:TESHA Colonigned by:Elvia Su MD11/25/18Final result Normal [facility] ED Noteon 11-25-2017 HIM IP Note OR Dye Stand Loader Normal [facility] HIM IP Note OR Dye Stand Loader Normal [facility] ED Provider Noteon 8 HIM IP Note OR Dye Stand Loader Normal [facility] Lipaseon 11-25-2017 Lipase 29 U/L Normal 13-60 [facility] Comment on above: Result Comment: Perf ormed at [facility], [address] [place] [address] Liver Profileon 11-25-2017 Alanine aminotransferase (ALT) 57 U/L High 5-41 [facility] Albumin 4.1 g/dL Normal 3.5-5.2 [facility] Albumin/Globulin Ratio 1.5 {ratio} Normal 1.0-2.5 [facility] Comment on above: Result Comment: [facility] [place], [address] [place] [address] Alkaline Phos 87 U/L Normal 40-129 [facility] Aspartate aminotransferase (AST) 28 U/L Normal <40 [facility] Bilirubin (direct) mg/dL Normal <0.31 [facility] Bilirubin Ql (U) 0.17 mg/dL Low 0.3-1.2 [facility] Bilirubin, Indirect CANNOT BE CALCULATED Normal 0.00-1 .00 [facility] Protein 6.8 g/dL Normal 6.4-8.3 [facility] Globulin NOT REPORTED Normal 1.5-3.8 [facility] UA w/Reflex Cultureon 2017 Acetaminophen mass conc Negative Normal [facility] [facility] Bilirubin (direct) Negative Normal NEG [facility] Hemoglobin mass conc (Bld) TRACE Abnormal NEG [facility] Nitrite,Ur Negative Normal NEG [facility] Turbidity CLEAR Normal CLEAR [facility] Urine, color YELLOW Normal YEL [facility] Urine, glucose presence Negative Normal NEG [facility] Urine, leukocyte esterase presence Negative Normal NEG [facility] Comment on above: Result Comment: Perf ormed at [facility], [address] [place] [address] [id number] Urine, pH 7.0 [pH] Normal 5.0-8.0 [facility] Urine, protein presence Negative Normal NEG [facility] Urine, specific gravity 1.010 Normal 1.005-1.030 [facility] Urobilinogen,Ur Normal Normal NORM [facility] Comment NOT REPORTED Normal [facility] Urinalysis,Microon 8 ----- Normal [facility] Other Observations Utilizing a urinalys is as the only screening method to exclude a potential Abnormal NREQ [facility] Comment on above: Result Comment: urop athogen can be unreliable in many patient populations. Rapid screening tests are less sensitive than culture and if UTI is a clinical possibility, culture should be considered despite a negative urinalysis.Performed at [facility], [address] [place] [address] [id number] Urine WBC's None Normal 0-5 [facility] Urine, bacteria in sediment None Normal NONE [facility] Urine, epithelial cells in sediment 0 TO 2 Normal 0-5 [facility] Urine, erythrocytes None Normal 0-2 [facility] Epithelial, Renal NOT REPORTED Normal 0 [facility] Mucus Strands NOT REPORTED Normal NONE [facility] Trichomonas NOT REPORTED Normal NONE [facility] Urine, amorphous sediment presence in sediment NOT REPORTED Normal NONE [facility] Urine, casts in sediment NOT REPORTED Normal [facility] Urine, crystals in sediment NOT REPORTED Normal NONE [facility] Urine, yeast presence in sediment NOT REPORTED Normal NONE [facility] ED Noteon 08-25-2017 HIM IP Note OR Dye Stand Loader Normal [facility] HIM IP Note OR Dye Stand Loader Normal [facility] HIM IP Note OR Dye Stand Loader Normal [facility] HIM IP Note OR Dye Stand Loader Normal [facility] ED Provider Noteon 8 HIM IP Note OR Dye Stand Loader Normal [facility] ED Noteon 08-04-2017 HIM IP Note OR Dye Stand Loader Normal [facility] ED Provider Noteon 7 HIM IP Note OR Dye Stand Loader Normal [facility] ED Noteon 05-01-2017 HIM IP Note OR Dye Stand Loader Normal [facility] ED Provider Noteon 7 HIM IP Note OR Dye Stand Loader Normal [facility] Vital Signs Date Time Vital Sign Value Performing Clinician Scott knight 08-15-2024 10:28-0500 Body height 172.7 cm Eriberto Verhoff PA-C [facility] Phone: [facility] 08-15-2024 10:28-0500 Body mass index (BMI) [Ratio] 36.8 kg/m2 Eriberto Verhoff PA-C Work Phone: [facility] 08-15-2024 10:28-0500 Body weight 109.77 kg Eriberto Verhoff PA-C Work Phone: [facility] 08-15-2024 10:28-0500 Diastolic blood pressure 87 mm[Hg] Eriberto Verhoff PA-C [facility] 08-15-2024 10:28-0500 Heart rate 88 /min Eriberto Verhoff PA-C [facility] 08-15-2024 10:28-0500 SaO2% (BldA) [Mass fraction] 99 % Eriberto Verhoff PA-C [facility] 08-15-2024 10:28-0500 Systolic blood pressure 133 mm[Hg] Eriberto Verhoff PA-C [facility] 06-05-2024 10:25-0400 Body height 172.7 cm Yvonne MONTERO [facility] 06-05-2024 10:25-0400 Body mass index (BMI) [Ratio] 36.34 kg/m2 Yvonne MONTERO Work Phone: [facility] 06-05-2024 10:25-0400 Body weight 108.41 kg Yvonne Nienberg PA Work Phone: [facility] 06-05-2024 10:25-0400 Diastolic blood pressure 87 mm[Hg] Yvonne Nienberg PA Work Phone: [facility] 06-05-2024 10:25-0400 Heart rate 92 /min Yvonne Nienberg PA Work Phone: [facility] 06-05-2024 10:25-0400 SaO2% (BldA) [Mass fraction] 99 % Yvonne Nienberg PA Work Phone: [facility] 06-05-2024 10:25-0400 Systolic blood pressure 131 mm[Hg] Yvonne Nienberg PA Work Phone: [facility] 05-15-2024 10:55-0400 Body height 172.7 cm Yvonne Nienberg PA Work Phone: [facility] 05-15-2024 10:55-0400 Body mass index (BMI) [Ratio] 36.46 kg/m2 Yvonne Nienberg PA Work Phone: [facility] 05-15-2024 10:55-0400 Body weight 108.77 kg Yvonne Nienberg PA Work Phone: [facility] 05-15-2024 10:55-0400 Diastolic blood pressure 84 mm[Hg] Yvonne Nienberg PA Work Phone: [facility] 05-15-2024 10:55-0400 Heart rate 92 /min Yvonne Nienberg PA Work Phone: [facility] 05-15-2024 10:55-0400 Respiratory rate 18 /min Yvonne Nienberg PA Work Phone: [facility] 05-15-2024 10:55-0400 SaO2% (BldA) [Mass fraction] 100 % Yvonne Nienberg PA Work Phone: [facility] 05-15-2024 10:55-0400 Systolic blood pressure 123 mm[Hg] Yvonne MONTERO Work Phone: [facility] Encounters Encounter Date Encounter Type Care Provider Facility Start: 08-15-2024 End: 08-15-2024 Office outpatient visit 25 minutes Yvonne MONTERO Work Phone: [facility] Comment on above: Lumbosacral spondylo sis without myelopathy (Primary Dx) Start: 08-15-2024 End: 08-15-2024 ambulatory ERIBERTO DUNCAN [facility] Start: 08-13-2024 End: 08-13-2024 Emergency department patient visit NO PCP NO PCP [facility] Start: 06-22-2024 End: 06-22-2024 ambulatory [facility] Start: 06-05-2024 End: 06-05-2024 Office outpatient visit 25 minutes Yvonne MONTERO Work Phone: [facility] Comment on above: Lumbosacral spondylo sis without myelopathy (Primary Dx) Start: 06-05-2024 End: 06-05-2024 ambulatory YVONNE Temo MIROSLAVA [facility] Start: 05-30-2024 End: 05-30-2024 Ashli Ulrich RN [facility] Start: 05-25-2024 End: 05-25-2024 ambulatory [facility] Start: 05-25-2024 End: 05-25-2024 ambulatory [facility] Start: 05-15-2024 End: 05-15-2024 ambulatory YVONNE TSANG [facility] Start: 05-15-2024 End: 05-15-2024 Office outpatient new 30 minutes Yvonne MONTERO Work Phone: [facility] Comment on above: Lumbosacral spondylo sis without myelopathy (Primary Dx) Start: 05-12-2024 End: 05-12-2024 Emergency department patient visit NO PCP NO PCP [facility] Start: 12-27-2023 End: 12-28-2023 Emergency department patient visit VIPIN OSBORN [facility] Start: 12-27-2023 End: 12-27-2023 Emergency department patient visit NO PCP NO PCP [facility] Start: 11-29-2023 End: 11-29-2023 Emergency department patient visit NO PCP NO PCP [facility] Start: 11-29-2023 End: 11-29-2023 ambulatory [facility] Start: 09-30-2023 End: 09-30-2023 Emergency department patient visit NO PCP NO PCP [facility] Start: 04-30-2022 End: 04-30-2022 Emergency department patient visit Sea Hough Facility:[facility] Start: 04-04-2022 End: 04-04-2022 ambulatory Madelyn Lares [employer] INSPECTOR-FRAME EXPANDER Facility:[facility] Start: 01-18-2022 End: 01-18-2022 Emergency department patient visit Tena Perdomo MEAT AND P[employer]LTRY INSPECTOR-FRAME EXPANDER Facility:[facility] Start: 09-15-2021 End: 09-15-2021 Emergency department patient visit MD Brett Moody Facility:[facility] Start: 06-16-2021 End: 06-16-2021 ambulatory Melany Hamilton MEAT AND P[employer]LTRY INSPECTOR-FRAME EXPANDER Facility:[facility] Start: 08-20-2019 End: 08-20-2019 Emergency department patient visit RADHA SEXTON Facility:[facility] Start: 07-12-2019 End: 07-12-2019 Emergency department patient visit STEVEN ALVES Facility:[facility] Start: 05-11-2019 End: 05-11-2019 Emergency department patient visit RADHA SEXTON Facility:[facility] Start: 11-25-2017 End: 11-25-2017 Emergency department patient visit SEN Plascencia [facility] Start: 08-25-2017 End: 08-25-2017 Emergency department patient visit SEN Plascencia [facility] Start: 08-04-2017 End: 08-04-2017 Emergency department [facility] Start: 05-01-2017 End: 05-01-2017 Emergency department [facility] Procedures Date Procedure Procedure Detail Performing Clinician Start: 05-11-2019 APPLICATION LONG LEG SPLINT BABAK Paz DENNY Start: 05-11-2019 Emergency department patient visit BABAK Paz BALDWIN Start: 11-25-2017 Microscopic urinalysis SEN IRA Start: 11-25-2017 URINE RT REFLEX TO CULTURE SEN ROTH Start: 11-25-2017 Ct abdomen & pelvis w/contrast material SEN ROTH Start: 11-25-2017 BASIC METABOLIC PANEL J CANDY ROTH Start: 11-25-2017 CBC WITH AUTO DIFFERENTIAL SEN IRA Start: 11-25-2017 HEPATIC FUNCTION PANEL SEN IRA Start: 11-25-2017 LIPASE SEN PHELAN Start: 11-25-2017 INSERT PERIPHERAL IV JE CHERYLBETO IRA Plan of Treatment Date Care Activity Detail Author Start: 10-30-2033 DTaP,Tdap and Td Vaccines (2 - Td or Tdap) DTaP,Tdap and Td Vaccines (2 - Td or Tdap) [facility] Start: 08-15-2025 Adult BMI Screening Adult BMI Screen ing [facility] Start: 08-15-2025 Tobacco Screening Tobacco Screening [facility] Start: 06-05-2025 Adult BMI Screening Adult BMI Screen ing [facility] Start: 05-25-2025 Tobacco Screening Tobacco Screening [facility] Start: 05-15-2025 Adult BMI Screening Adult BMI Screen ing [facility] Start: 05-15-2025 Tobacco Screening Tobacco Screening [facility] Start: 10-17-2024 End: 10-17-2024 Patient encounter procedure 10/17/2024 10:30 AM EDT Office Visit [facility] [address] [place] [id number] Eriberto Duncan, PA-C [address] [place] [address] [facility] Start: 09-14-2024 End: 09-14-2024 Admission to same day surgery center 09/14/2024 10:18 AM EST - 09/14/2024 10:30 AM EST Surgery [facility] [address] [place] [phone] Abel Rivera MD [address] [place] [address] RADIOFREQUENCY ABLATION SPINAL Left L 3/4,4/5,5/1 [40659 (CPT )] [facility] Comment on above: RADIOFREQUENCY ABLAT ION SPINAL Left L 3/4,4/5,5/1 [45600 (CPT )] Start: 09-14-2024 End: 09-14-2024 Dstr nrolytc agnt parverteb fct sngl lmbr/sacral RADIOFREQUENCY ABLATION SPINAL Lumbosacral spondylosis without myelopathy 09/14/2024 10:18 AM EST [facility] Start: 09-14-2024 Subsequent hospital visit by physician 09/14/2024 10:18 AM EST Hospital Encounter [facility] [address] [place] [phone] Abel Rivera MD [address] [place] [address] [facility] Start: 08-31-2024 End: 08-31-2024 Admission to same day surgery center 08/31/2024 1:03 PM EST - 08/31/2024 1:15 PM EST Surgery [facility] [address] [place] [phone] Abel Rivera MD [address] [place] [address] RADIOFREQUENCY ABLATION SPINAL Right L 3/4,4/5, 5/1 [62610 (CPT )] [facility] Comment on above: RADIOFREQUENCY ABLAT ION SPINAL Right L 3/4,4/5, 5/1 [93839 (CPT )] Start: 08-31-2024 End: 08-31-2024 Dstr nrolytc agnt parverteb fct sngl lmbr/sacral RADIOFREQUENCY ABLATION SPINAL Lumbosacral spondylosis without myelopathy 08/31/2024 1:03 PM EST [facility] Start: 08-31-2024 Subsequent hospital visit by physician 08/31/2024 1:03 PM EST Hospital Encounter [facility] [address] [place] [address] Abel Rivera MD [address] [place] [address] [facility] Start: 07-19-2024 End: 07-19-2024 Patient encounter procedure 07/19/2024 10:15 AM EST Office Visit [facility] [address] [place] [phone] Yvonne Tsang, PA [address] [place] [address] [facility] Start: 07-03-2024 End: 07-03-2024 Patient encounter procedure 07/03/2024 10:15 AM EST Office Visit [facility] [address] [place] [phone] Yvonne Tsang PA [address] [place] [address] [facility] Start: 06-29-2024 End: 06-29-2024 Admission to same day surgery center 06/29/2024 10:30 AM EST - 06/29/2024 10:38 AM EST Surgery [facility] [address] [place] [address] Abel Rivera MD [address] [place] [address] INJECTION BLOCK NERVE MEDIAL BRANCH: bilat L34 45 51 [11457 (CPT )] [facility] Comment on above: INJECTION BLOCK NERV E MEDIAL BRANCH: bilat L34 45 51 [34615 (CPT )] Start: 06-29-2024 End: 06-29-2024 Njx dx/ther agt pvrt facet jt lmbr/sac 1 level INJECTION BLOCK NERVE MEDIAL BRANCH Lumbosacral spondylosis without myelopathy 06/29/2024 10:30 AM EST [facility] Start: 06-29-2024 Subsequent hospital visit by physician 06/29/2024 10:30 AM EST Hospital Encounter [facility] [address] [place] [phone] Abel Rivera MD [address] [place] [address] [facility] Start: 06-08-2024 End: 06-08-2024 Admission to same day surgery center 06/08/2024 12:37 PM EDT - 06/08/2024 12:45 PM EDT Surgery [facility] [address] [place] [phone] Abel Rivera MD [address] [place], [place] [phone] INJECTION BLOCK NERVE MEDIAL BRANCH: bilat L34 45 51 [54564 (CPT )] [facility] Comment on above: INJECTION BLOCK NERV E MEDIAL BRANCH: bilat L34 45 51 [40122 (CPT )] Start: 06-08-2024 End: 06-08-2024 Njx dx/ther agt pvrt facet jt lmbr/sac 1 level INJECTION BLOCK NERVE MEDIAL BRANCH Lumbosacral spondylosis without myelopathy 06/08/2024 12:37 PM EDT [facility] Start: 06-08-2024 Subsequent hospital visit by physician 06/08/2024 12:37 PM EDT Hospital Encounter [facility] [address] [place] [phone] Abel Rivera MD [address] [place], [place] [phone] [facility] Start: 06-05-2024 End: 06-05-2024 Patient encounter procedure 06/05/2024 10:45 AM EDT Office Visit [facility] [address] [place] [phone] Yvonne Tsang PA [address] [facility] [place], [place] [id number] [facility] Start: 04-08-2024 Influenza vaccination Influenza Vacc ine [facility] Start: 2006 Adult BMI Follow Up Plan Adult BMI F ollow Up Plan [facility] Start: 2000 Depression Screening Depression Scre ening [facility] Start: 1988 Tobacco Counseling Tobacco Counselin g [facility] Payers Date Payer Category Payer Department of [employer] [id number] 2023 Unknown [id number] 2023 Unknown [id number] 2021 Unknown 2016 Unknown [id number] 1988 Unknown [id number] 2.16.840.1.623577.3.579.2.647 1988 Unknown [id number] 2.16.840.1.357188.3.579.2.647 1988 Unknown [id number] 2.16.840.1.030694.3.579.2.647 1988 Unknown [id number] 2.16.840.1.146500.3.579.2.196 1988 Unknown [id number] 2.16.840.1.167515.3.579.2.196 1988 Unknown [id number] 2.16.840.1.321712.3.579.2.196 1988 Unknown [id number] 2.16.840.1.541481.3.579.2.196 1988 Unknown [id number] 2.16840.1.319229.3.579.2.196 1988 Unknown [id number] 2.16.840.1.271507.3.579.2.6 1988 Unknown [id number] 2.16.840.1.223323.3.579.2.1285 1988 Unknown [id number] 2.16.840.1.642779.3.579.2.1285 1988 Unknown [id number] 2.840.1.010155.3.579.2.1285 1988 Unknown [id number] 2.16.840.1.588396.3.579.2.1285 1988 Unknown [id number] 2.16.840.1.229540.3.579.2.1285 1988 Unknown [id number] 2.16.840.1.457262.3.579.2.1285 1988 Unknown [id number] 2.16.840.1.982870.3.579.2.1285 1988 Unknown [id number] 2.16.840.1.606254.3.579.2.1286 1988 Unknown [id number] 2.16.840.1.866139.3.579.2.1286 1988 Unknown [id number] 2.16.840.1.472367.3.579.2.1286 1988 Unknown [id number] 2.16.840.1.083517.3.579.2.1286 1988 Unknown [id number] 2.16.840.1.754946.3.579.2.1286 1988 Unknown [id number] 2.16.840.1.504868.3.579.2.1286 1988 Unknown [id number] 2.16.840.1.539887.3.579.2.1286 Unknown [id number] Unknown [id number] Social History Date Type Detail Facility Start: 05-12-2024 Tobacco smoking stat [facility] Ex-smoker [facility] History of tobacco use Current smoker [facility] History of tobacco use Cigarette Smoker P [facility] History of tobacco use Tobacco U se Types Packs/Day Years Used Date Smoking Tobacco: Former Cigarettes Vaping/E-cigarettes Smokeless Tobacco: Current [facility] Start: 05-12-2024 Tobacco use and exposure User of smokeless tobacco [facility] Start: 05-15-2024 End: 08-15-2024 Alcoholic beverage intake Current drinker of alcohol (finding) [facility] Start: 05-15-2024 End: 08-15-2024 History of Social function [facility] Start: 05-15-2024 End: 08-15-2024 Tobacco use panel [facility] Childcare Unknown [facility] Start: 11-29-2023 Alcohol Comment OCCASIONALLY [facility] Start: 1990 Sex assigned at Male P [facility] Start: 11-29-2023 Gender identity Identifies as male gender (finding) [facility] Start: 03-11-2015 Sex Male (finding) [facility] Clinical Notes 06-16-2021 to 08-15-2024 Eriberto Duncan PA-C - 08/15/2024 10:30 AM ESTPatient InstructionsMattWINSTON Roe - 06/05/2024 10:45 AM EDTPatient InstructionsTelephone Encounter - Tammy Ulrich RN - 05/30/2024 9:37 AM EDT Note Date & Type Note Facility 08-15-2024 History of Presen t illness Narrative [facility] [address] [place] [address] Patient: Janina Silva II Sex: male : 1990 Age: 34 y.o. PCP: NO PCP, NO PCP 08/15/2024 Janina Silav II is here for a(n) post procedure follow up 06/22/24 Gino L 3/4, 4/5, 5/1 MBB w/80% relief for 1 day. Date of onset of pain: 2011 , pain has lasted greater than 3 months. Pain scale before treatment: 8/10 Pre-op pain score: 6/10 Post-op pain score: 2/10 Percentage of relief after and duration: 80% relief for 1 day Pain scale after treatment: 8/10 Chief Complaint Patient presents with Back Pain HPI: Started PT and currently going [facility] No chiropractic therapy Does do home stretches that PT gave him 05/25/24 Gino L 3/4, 4/5, 5/1 MBB w/85% relief for 1-4 hours 06/22/24 Gino L 3/4, 4/5, 5/1 MBB w/80% relief for 1 day Back Pain This is a chronic problem. 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 The problem occurs constantly. Progression since onset: improved w/MBB, now back to baseline. The pain is present in the lumbar spine, thoracic spine and gluteal. The quality of the pain is described as aching, cramping and shooting (spasms). Radiates to: RLE. The pain is at a severity of 8/10. The pain is moderate. Worse during: w/activity. Exacerbated by: standing, walking, stairs, bending, lifting, twisting, pushing, pullilng, transitioning. Stiffness is present All day. Associated symptoms include headaches, leg pain (RLE), numbness (Rt Foot, RUE), tingling (Rt Foot, RUE) and weakness (Rt Foot). Pertinent negatives include no chest pain or fever. Risk factors include obesity, sedentary lifestyle and lack of exercise. Treatments tried: ibuprofen, aleve, baclofen, flexeril, biofreeze, lidocaine patches with no relief, tramadol, percocet, tens unit with mild relief, norco, zanaflex. The treatment provided significant relief. Neck Pain This is a chronic problem. The current episode started more than 1 month ago. The problem occurs daily. The problem has been gradually worsening. The pain is associated with nothing. The pain is present in the left side, midline and right side (in between shoulder blades). Quality: sore and tender. The pain is at a severity of 1/10. The pain is mild. The symptoms are aggravated by position, twisting and bending. The pain is Same all the time. Stiffness is present All day. Associated symptoms include headaches, leg pain (RLE), numbness (Rt Foot, RUE), tingling (Rt Foot, RUE) and weakness (Rt Foot). Pertinent negatives include no chest pain or fever. Treatments tried: ibuprofen, aleve, baclofen, flexeril, biofreeze, lidocaine patches with no relief, tramadol, percocet, tens unit with mild relief, norco, zanaflex. The treatment provided mild relief. The effect of pain on patient's ADLS: Moderate Impairment. Past Medical History: Diagnosis Date Anxiety Depression Liver cyst Low back pain Q-fever pneumonia 2009 Past Surgical History: Procedure Laterality Date INJECTION BLOCK NERVE MEDIAL BRANCH: bilat L 3/4, 4/5, 12/06 Bilateral 06/22/2024 Performed by bAel [facility] MD at [facility] INJECTION BLOCK NERVE MEDIAL BRANCH: bilat L 3/4, 4/5, 12/06 Bilateral 05/25/2024 Performed by Abel Rivera MD at [facility] NOSE SURGERY 2007 TONSILLECTOMY Allergies Allergen Reactions Pneumovax-23 [Pneumococcal 23-[place] Vaccine] Prednisone Made irritable - side effect Okay for pain Family History Problem Relation Age of Onset Cancer Sister Cervical cancer Sister Cancer Maternal Grandmother Brain cancer Maternal Grandmother Stomach cancer Paternal Grandmother Social History Socioeconomic History Marital status: Spouse name: Not on file Number of children: Not on file Years of education: Not on file Highest education level: Not on file Occupational History Not on file Tobacco Use Smoking status: Former Types: Cigarettes, Vaping/E-cigarettes Smokeless tobacco: Current Vaping Use Vaping status: Every Day Substances: Nicotine Substance and Sexual Activity Alcohol use: Yes Comment: OCCASIONALLY Drug use: Never Sexual activity: Defer Other Topics Concern Not on file Social History Narrative Not on file Social Drivers of Health Financial Resource Strain: Not on file Food Insecurity: No Food Insecurity (08/15/2024) Hunger Screening Food Insecurity - Worry: Never True Food Insecurity - Inability: Never True Transportation Needs: Not on file Physical Activity: Not on file Stress: Not on file Social Connections: Not on file Interpersonal Safety: Unknown (10/03/2023) Received from [facility] Safety & Environment Fear of Current or Ex-Partner: Not on file Emotionally Abused: Not on file Physically Abused: Not on file Sexually Abused: Not on file Physically or Sexually Abused: Not on file Housing Instability: Not on file Review of Systems Constitutional: Negative for chills and fever. HENT: Negative. Eyes: Negative. Respiratory: Negative for cough and shortness of breath. Cardiovascular: Negative for chest pain. Gastrointestinal: Leakage Endocrine: Negative. Musculoskeletal: Positive for back pain and neck pain. Skin: Negative. Allergic/Immunologic: Negative. Neurological: Positive for tingling (Rt Foot, RUE), weakness (Rt Foot), numbness (Rt Foot, RUE) and headaches. Hematological: Negative. Psychiatric/Behavioral: Negative. Vital Signs: BP 133/87 (BP Site: Left Arm) Pulse 88 Ht 172.7 cm (5' 8 ) Wt 109.8 kg (242 lb) SpO2 99% BMI 36.80 kg/m Physical Exam: GENERAL - Healthy patient that appears stated age. HEENT - Normocephalic / Atraumatic, Extraoccular movements intact, trachea midline, thyroid within normal limits. CV - pulse regular, Warm extremities with appropriate color of nailbeds. RESP - No obvious wheezing, No Shortness of Breath, No overexertion response to exam maneuvers. COORDINATION - remains intact. PSYCH - Alert and Oriented x4, Attentive and appropriate, constitutionally normal, displays normal mood and affect per situation, answered questions appropriately during examination, demonstrated appropriate attention during discussion, demonstrated appropriate cognitive reasoning and understanding of the medical condition by asking appropriate questions regarding the diagnosis and risks/benefits/alternatives of treatment modalities. No obvious deficits in memory, reasoning, or intellect. Lumbar: SKIN - No rashes or bruising in the area of the patient s pain. LYMPH NODES - demonstrate no obvious enlargement. EXTREMITIES - Lower extremities are warm, with minimal edema and palpable pulses. Tenderness to palpation noted in the lumbar spine and paraspinal musculature. Pain is elicited with flexion, extension, and lateral rotation of the lumbar spine. Range of motion is diminished with these motions due to pain. Facet palpation is noted to be painful and facet loading maneuvers elicit pain that is concordant with the patient s normal pain complaints. Some muscle spasm is noted in the overlying musculature. STRENGTH - noted to be 5 out of 5 all muscle groups bilateral lower extremities including muscles involving hip flexion and abduction, knee flexion and extension, as well as foot dorsiflexion and plantarflexion. No notable atrophy, fasciculations or spasm. SENSORY - No notable sensory deficits in the bilateral lower extremities to touch or pinprick in all dermatomal distributions. Straight Leg Raise is negative bilaterally. Gait is normal. Assessment/Treatment Plan: Janina was seen today for back pain. Diagnoses and all orders for this visit: Lumbosacral spondylosis without myelopathy - Case request operating room: RADIOFREQUENCY ABLATION SPINAL Right L 3/4,4/5, 5/ - Case request operating room: RADIOFREQUENCY ABLATION SPINAL Left L 3/4,4/5,5/ Right then Left L3/4, 4/5, 5/ Facet Radiofrequency Ablation - under fluoroscopy It is hopeful that the described procedure will provide symptomatic pain relief. It is felt to be medically necessary noting that the patient has tried and failed more conservative modalities of therapy and this is the next most appropriate step. The procedure was described in detail to the patient as well as the potential benefits of pain reduction alongside risks of the procedure and alternatives. Risks were described as including, but not limited to bleeding, infection, nerve damage, spinal cord injury, paralysis, stroke, dural puncture headache, and medication reaction. The patient expressed understanding regarding the risks and benefits and wishes to proceed. The patient has undergone diagnostic injections targeting the above mentioned facet joints. There was significant improvement in the patient s pain and functionality for the duration of the local anesthetic (approximately 2 hours) with return of the original symptoms after that time. For this reason, it is felt that the patient is a good candidate to undergo thermal Radio Frequency Lesioning of the Medial Branch Nerves at 80 degrees celsius for 90 seconds. This will effectively denervate the arthritic facet joints previously targeted with the diagnostic injection. It is noted that the procedure often requires 3-4 weeks to provide benefit, but the benefit usually lasts for approximately 1 year and can then be repeated if necessary. Patients undergoing this procedure often have mild post-procedural pain for 3-4 days which is generally relieved with application of heat and over the counter pain relievers. Follow up 4 weeks after procedure The medications prescribed have been reviewed for medication interactions/contraindications and/or for upcoming procedures: continue current medication regimen without any changes. DISCUSSION: Treatment options discussed with patient and all questions answered to patient's satisfaction. Discussed the rules and regulations surrounding prescription of opioids and compliance at length. Failure to follow the rules and regulation will result in tapering and discontinuation of medications if applicable. Prescribed medication that requires intensive monitoring for toxicity We do not currently prescribe any controlled substance from this practice. The spine model was demonstrated and MRI was reviewed and used to explain the condition. Chronic conditions not treated during this visit that affected my overall medical decision making: Comorbidity- Obesity The patient does have a comorbid condition of obesity. This will be taken into account in that obesity will contribute to certain pain conditions. It can contribute to pain from degenerative disc disease as well as osteoarthritis of the joints. Many neuropathic symptoms are also amplified due to axial spine loading. Special benefits will also need to be given to procedures. Many procedures are technically more difficult in the light of severe obesity. I will also consider the possibility of undiagnosed obstructive sleep apnea (which often accompanies obesity) when prescribing any narcotic medications. I will weigh the risks and benefits and fully discuss them with the patient for these reasons. OARRS: Reviewed. Scribe Statement: Krys Rivera CNA, scribed for and in the presence of ERIBERTO DUNCAN PA-C who performed the above service. Provider Statement: ERIBERTO Rivera PA-C, personally performed the services described in the documentation, as scribed by Krys Sevilla CNA in my presence, and it is both accurate and complete. Krys Sevilla CNA 08/15/24 1105 Eriberto Duncan PA-C 08/15/24 1139 documented in this encounter [facility] 08-15-2024 Instructions Krys Sevilla CNA - 08/15/2024 10:30 AM EST Radiofrequency Ablation (RFA) Radiofrequency ablation (or RFA) is a procedure used to reduce pain. An electrical current produced by a radio wave is used to heat up a small area of nerve tissue, thereby decreasing pain signals from that specific area. Which Conditions Are Treated With Radiofrequency Ablation? RFA can be used to help patients with chronic (long-lasting) back and neck pain and pain related to the degeneration of joints from arthritis. How Long Does Pain Relief from Radiofrequency Ablation Last? The degree of pain relief varies, depending on the cause and location of the pain. Pain relief from RFA can last from six to 12 months and in some cases, relief can last for years. More than 70% of patients treated with RFA experience pain relief. Is Radiofrequency Ablation Safe? RFA has proven to be a safe and effective way to treat some forms of pain. It also is generally well-tolerated, with very few associated complications. There is a slight risk of infection and bleeding at the insertion site. Your doctor can advise you about your particular risk. Can I Resume My Normal Activities After Radiofrequency Ablation? You will have a few restrictions immediately following radiofrequency ablation: Do not drive or operate machinery for at least 24 hours after the procedure. You may resume your normal diet and prescribed medications (including blood thinners) when you get home. Do not engage in any strenuous activity for the first 24 hours after the procedure. You may remove any bandages in the evening before going to bed. You may experience the following effects after RFA: Leg numbness: If you have any leg numbness, walk only with assistance. This should only last a few hours and is due to the local anesthesia given during the procedure. Mild back discomfort: This may occur when the local anesthetic wears off and usually lasts two or three days. Apply heat to the area the day of the procedure and the day after the procedure. You may also use your usual pain medications and NSAID medications such as ibuprofen, naproxen, Aleve, Motrin, etc. if you are able. Expectations: Results will be gradual. It may take 3-4 weeks for full relief. If you feel severe pain at the injection site with swelling and redness, increased leg weakness, a fever of 101 or higher, headache (or worsening headache), changes in vision or urinary retention: Please call the office at , or have someone take you to the nearest emergency room. Tell the emergency room staff that you just had RFA. A doctor must evaluate you for bleeding and injection complications. If you lose control over bowel, bladder, or legs: Go to the nearest emergency room. If you are diabetic, the steroids used in this procedure can increase your blood sugar. If your blood sugar is 250mg/dL or higher, contact your primary care physician, or the doctor who manages your diabetes, to discuss how to get it back to normal. documented in this encounter [facility] 06-05-2024 History of Presen t illness Narrative [facility] [address] [place] [address] Patient: Janina Silva II Sex: male : 1990 Age: 33 y.o. PCP: NO PCP, NO PCP 06/05/2024 Janina Silva II is here for a(n) post procedure follow up 05/25/24 Gino L 3/4, 4/, 12/06 MBB w/85% relief for 1-4 hours. He also so reports no relief from Baclofen. Date of onset of pain: 2011 , pain has lasted greater than 3 months. Pain scale before treatment: 7/10 Pre-op pain score: 7/10 Post-op pain score: 1/10 2 hour post-op pain score: 2/10 4 hour post-op pain score: 2/10 Percentage of relief after and duration: 85% relief for 1 hour Pain scale after treatment: 03/17 Chief Complaint Patient presents with Back Pain HPI: Started PT and currently going [facility] No chiropractic therapy Does do home stretches that PT gave him 05/25/24 Gino L 3/4, 11/10, 12/06 MBB w/85% relief for 1-4 hours Back Pain This is a chronic problem. 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 The problem occurs constantly. The problem has been gradually worsening since onset. The pain is present in the lumbar spine, thoracic spine and gluteal. The quality of the pain is described as aching, cramping and shooting (spasms). Radiates to: BLE. The pain is at a severity of 8/10. The pain is moderate. Worse during: w/activity. Exacerbated by: standing, walking, stairs, bending, lifting, twisting, pushing, pullilng, transitioning. Stiffness is present All day. Associated symptoms include leg pain (BLE) and numbness (LUE). Pertinent negatives include no abdominal pain, chest pain, fever, tingling or weakness. Risk factors include obesity, sedentary lifestyle and lack of exercise. Treatments tried: ibuprofen, aleve, baclofen, flexeril, biofreeze, lidocaine patches with no relief, tramadol, percocet, tens unit with mild relief. The treatment provided mild relief. Neck Pain This is a chronic problem. The current episode started more than 1 month ago. The problem occurs constantly. The problem has been gradually worsening. The pain is associated with nothing. The pain is present in the left side, midline and right side (in between shoulder blades). Quality: sore and tender. The pain is at a severity of 6/10. The pain is moderate. The symptoms are aggravated by position, twisting and bending. The pain is Same all the time. Stiffness is present In the morning (neck and shoulders). Associated symptoms include leg pain (BLE) and numbness (LUE). Pertinent negatives include no chest pain, fever, tingling or weakness. Treatments tried: ibuprofen, aleve, baclofen, flexeril, biofreeze, lidocaine patches with no relief, tramadol, percocet, tens unit with mild relief. The treatment provided mild relief. The effect of pain on patient's ADLS: Moderate Impairment. Past Medical History: Diagnosis Date Anxiety Depression Liver cyst Low back pain Q-fever pneumonia 2010 Past Surgical History: Procedure Laterality Date INJECTION BLOCK NERVE MEDIAL BRANCH: bilat L 3/4, 4/5, 5/ Bilateral 05/25/2024 Performed by Abel Rivera MD at [facility] NOSE SURGERY 2007 TONSILLECTOMY Allergies Allergen Reactions Pneumovax-23 [Pneumococcal 23-[place] Vaccine] Prednisone Made irritable - side effect Okay for pain Family History Problem Relation Age of Onset Cancer Sister Cervical cancer Sister Cancer Maternal Grandmother Brain cancer Maternal Grandmother Stomach cancer Paternal Grandmother Social History Socioeconomic History Marital status: Spouse name: Not on file Number of children: Not on file Years of education: Not on file Highest education level: Not on file Occupational History Not on file Tobacco Use Smoking status: Former Types: Cigarettes, Vaping/E-cigarettes Smokeless tobacco: Current Vaping Use Vaping status: Every Day Substances: Nicotine Substance and Sexual Activity Alcohol use: Yes Comment: OCCASIONALLY Drug use: Never Sexual activity: Defer Other Topics Concern Not on file Social History Narrative Not on file Social Drivers of Health Financial Resource Strain: Not on file Food Insecurity: No Food Insecurity (06/05/2024) Hunger Screening Food Insecurity - Worry: Never True Food Insecurity - Inability: Never True Transportation Needs: Not on file Physical Activity: Not on file Stress: Not on file Social Connections: Not on file Interpersonal Safety: Unknown (10/03/2023) Received from [facility] Safety & Environment Fear of Current or Ex-Partner: Not on file Emotionally Abused: Not on file Physically Abused: Not on file Sexually Abused: Not on file Physically or Sexually Abused: Not on file Housing Instability: Not on file Review of Systems Constitutional: Negative for chills and fever. HENT: Negative. Eyes: Negative. Respiratory: Negative for cough and shortness of breath. Cardiovascular: Negative for chest pain. Gastrointestinal: Negative for abdominal pain. Endocrine: Negative. Genitourinary: Negative. Musculoskeletal: Positive for back pain and neck pain. Skin: Negative. Allergic/Immunologic: Negative. Neurological: Positive for numbness (LUE). Negative for tingling and weakness. Hematological: Negative. Psychiatric/Behavioral: Negative. Vital Signs: BP 131/87 (BP Site: Left Arm) Pulse 92 Ht 172.7 cm (5' 8 ) Wt 108.4 kg (239 lb) SpO2 99% BMI 36.34 kg/m Physical Exam: GENERAL - Healthy patient that appears stated age. HEENT - Normocephalic / Atraumatic, Extraoccular movements intact, trachea midline, thyroid within normal limits. CV - pulse regular, Warm extremities with appropriate color of nailbeds. RESP - No obvious wheezing, No Shortness of Breath, No overexertion response to exam maneuvers. COORDINATION - remains intact. PSYCH - Alert and Oriented x4, Attentive and appropriate, constitutionally normal, displays normal mood and affect per situation, answered questions appropriately during examination, demonstrated appropriate attention during discussion, demonstrated appropriate cognitive reasoning and understanding of the medical condition by asking appropriate questions regarding the diagnosis and risks/benefits/alternatives of treatment modalities. No obvious deficits in memory, reasoning, or intellect. Lumbar: SKIN - No rashes or bruising in the area of the patient s pain. LYMPH NODES - demonstrate no obvious enlargement. EXTREMITIES - Lower extremities are warm, with minimal edema and palpable pulses. Tenderness to palpation noted in the lumbar spine and paraspinal musculature. Pain is elicited with flexion, extension, and lateral rotation of the lumbar spine. Range of motion is diminished with these motions due to pain. Facet palpation is noted to be painful and facet loading maneuvers elicit pain that is concordant with the patient s normal pain complaints. Some muscle spasm is noted in the overlying musculature. STRENGTH - noted to be 5 out of 5 all muscle groups bilateral lower extremities including muscles involving hip flexion and abduction, knee flexion and extension, as well as foot dorsiflexion and plantarflexion. No notable atrophy, fasciculations or spasm. SENSORY - No notable sensory deficits in the bilateral lower extremities to touch or pinprick in all dermatomal distributions. Straight Leg Raise is negative bilaterally. Gait is normal. Assessment/Treatment Plan: Janina was seen today for back pain. Diagnoses and all orders for this visit: Lumbosacral spondylosis without myelopathy - Case request operating room: INJECTION BLOCK NERVE, INJECTION BLOCK NERVE MEDIAL BRANCH: sari [id number] Other orders - tiZANidine (ZANAFLEX) 4 mg tablet; Take 1 tablet (4 mg total) by mouth every 8 (eight) hours as needed for muscle spasms. Discontinue Baclofen due to lack of efficacy and begin Zanaflex 4 mg TID PRN With Regard to medication management, it is felt that the patient would benefit from the changes mentioned above. This should provide symptomatic pain relief as part of the comprehensive pain management strategy outlined. Risks, Benefits, Side effects, and possible interactions of these medications were reviewed and the medication agreement has been discussed, agreed upon, and signed. The patient understands compliance concerns and the requirement of pill counts and drug screens while taking medications prescribed by this clinic. Bilateral L3/4, 4/5 .5/1 Facet Injection/Medial Branch Block - under fluoroscopy It is hopeful that the described procedure will provide symptomatic pain relief. It is felt to be medically necessary noting that the patient has tried and failed more conservative modalities of therapy and this is the next most appropriate step. The procedure was described in detail to the patient as well as the potential benefits of pain reduction alongside risks of the procedure and alternatives. Risks were described as including, but not limited to bleeding, infection, nerve damage, spinal cord injury, paralysis, stroke, dural puncture headache, and medication reaction. The patient expressed understanding regarding the risks and benefits and wishes to proceed. Diagnostic facet injections and medial branch blocks should provide information to confirm that the noted facet arthropathy is the patient s most significant pain generator. If this provides significant but only temporary pain relief, the patient may in the future be a candidate for radiofrequency denervation of the facet joints to provide pain relief for approximately 1 year. Follow up 2 weeks after procedure The medications I have prescribed have been reviewed for medication interactions/contraindications and/or for upcoming procedures: continue current medication regimen without any changes. DISCUSSION: Treatment options discussed with patient and all questions answered to patient's satisfaction. Discussed the rules and regulations surrounding prescription of opioids and compliance at length. Failure to follow the rules and regulation will result in tapering and discontinuation of medications if applicable. The patient has been instructed as to the type of medication prescribed along with directions for use. Potential side effects have been discussed, along with risks and benefits of taking this medication. (S)he was instructed as to what to do if (s)he experiences side effects, including when to discontinue the medication. (S)he was advised to call this office in this event. Also discussed at length safety and security of RX and medications. Prescribed medication that requires intensive monitoring for toxicity We do not currently prescribe any controlled substance from this practice. Treatment plans discussed but not opted for at this time: Lumbar RFA. Patient would like to proceed with the current outlined treatment plan before moving forward with any other options. It is noted that the patient did have good response from the previously performed procedure. It is felt that the patient would benefit from an additional procedure of the same nature in that the same symptoms have returned. It is hopeful that this additional injection will provide additional benefit and duration when combined with the previous injection. The spine model was demonstrated and MRI was reviewed and used to explain the condition. Chronic conditions not treated during this visit that affected my overall medical decision making: Comorbidity- Obesity The patient does have a comorbid condition of obesity. This will be taken into account in that obesity will contribute to certain pain conditions. It can contribute to pain from degenerative disc disease as well as osteoarthritis of the joints. Many neuropathic symptoms are also amplified due to axial spine loading. Special benefits will also need to be given to procedures. Many procedures are technically more difficult in the light of severe obesity. I will also consider the possibility of undiagnosed obstructive sleep apnea (which often accompanies obesity) when prescribing any narcotic medications. I will weigh the risks and benefits and fully discuss them with the patient for these reasons. Comorbidity- Anxiety The patient describes a significant issue with anxiety. Although treatment is helpful with this regard, the patient is likely need special accommodation due to this condition. For this reason, necessary procedures will likely need to be performed under sedation to decrease procedural anxiety. Comorbidity- Depression The patient has an ongoing issue with depression and currently feels these symptoms are under control and further feels that appropriate pain management would also help these symptoms. The patient is optimistic about the treatment plan we have laid out. We will continue to monitor these symptoms and remain cogniscent that they may affect the patients perceived improvement from the treatment and willingness to pursue further treatment. At this time the patient appears to be mentally and emotionally stable to undergo procedural and medical therapy. If any warning signs become present, I may refer the patient to a mental health professional for further evaluation. OARRS: Reviewed. Scribe Statement: Scribed for and in the presence of WINSTON JACKSON by Krys Sevilla CNA. Provider Statement: I, WINSTON JACKSON, personally performed the services described in the documentation, as scribed by Krys Sevilla CNA in my presence, and it is both accurate and complete. Krys Sevilla CNA 06/05/24 1108 WINSTON Jackson 06/05/24 1203 documented in this encounter [facility] 06-05-2024 Instructions Krysla nena Sevilla CNA - 06/05/2024 10:45 AM EDT Facet Injection / Medial Branch Block (MBB) / Sacroiliac (SI) Joint Injection / Cluneal NB A facet injection and sacroiliac joint injection are injections of local anesthetic and steroid into a joint in the spine. A medial branch block is similar, but the medication is placed outside the joint space near the nerve that supplies the joint called the medial branch (steroid may or may not be used). You may require multiple injections depending upon how many joints are involved. How Long Will This Procedure Last? The extent and duration of pain relief may depend on the amount of inflammation and how many areas are involved. Other coexisting factors may be responsible for your pain. If your pain goes away for a short time, but then returns, you may be a candidate for radiofrequency ablation (RFA). Activity Be active. Attempt activities and movements that typically cause pain to see if it feels better while doing them. We will give you a pain diary. Please fill this out as directed by your nurse in pre-op. This will help your doctor determine the effectiveness of the injection, and how to proceed. Bring the pain diary with you to your follow-up appointment. Medications You should not take your pain medications for 4-6 hours before or after the injection in order to properly diagnose if the injection provides adequate relief. Resume your routine medications after your procedure. You may resume blood thinners per your regular schedule after the procedure. If you received sedation: If you received sedation for your procedure, you may feel sleepy or not yourself for several hours today. For the next 24 hours avoid activities that requires alertness or coordination. This includes: Driving or operating heavy machinery Using power tools Consuming alcohol Do not make important or complex decisions or sign legal documents in the next 24 hours. Other Instructions: If you feel severe pain at the injection site with swelling and redness, increased leg weakness, a fever of 101 or higher, headache (or worsening headache), changes in vision or urinary retention: Please call the office at , or have someone take you to the nearest emergency room. Tell the emergency room staff that you recently had a spine injection. A doctor must evaluate you for bleeding and injection complications. If you lose control over bowel, bladder, or legs: Go to the nearest emergency room. documented in this encounter [facility] 05-30-2024 Miscellaneous Notes Pt had bilateral L 3/4, 4/5, 5/1 MBB last Tuesday05/25/2024 states he had 50% better (that day) in low back but experience back spasms across in low back up mid back both sides. Pain progressively worsened the day after procedure and increasing daily. Pain level today is a solid 8-910, current treatment is tylenol 1000 mg and naproxen 2 tablets every 8 hours, heat, ice, back brace with no relief. Requesting pain relieving medication until f/u. Baclofen 10mg BID Pt agreeable, order pending for your review documented in this encounter [facility] 05-30-2024 Telephone encounter Note Pt had bilateral L 3/4, 4/5, 5/1 MBB last Tuesday05/25/2024 states he had 50% better (that day) in low back but experience back spasms across in low back up mid back both sides. Pain progressively worsened the day after procedure and increasing daily. Pain level today is a solid 8-910, current treatment is tylenol 1000 mg and naproxen 2 tablets every 8 hours, heat, ice, back brace with no relief. Requesting pain relieving medication until f/u. [facility] 05-30-2024 Telephone encounter Note Baclofen 10mg BID [facility] 05-30-2024 Telephone encounter Note Pt agreeable, order pending for your review [facility] 05-15-2024 History of Presen t illness Narrative [facility] [address] [place] [address] Patient: Janina Silva II Sex: male : 1990 Age: 33 y.o. PCP: NO PCP, NO PCP 05/15/2024 Janina Silva II is here for a(n) initial consultation. Pain in in the middle of back and can travel down anterior and posterior bilateral legs. Pain is a 7/10 and can increase with ADLs. Also, reports pain and posterior neck and in between shoulder blades. Chief Complaint Patient presents with Back Pain Neck Pain HPI: Started PT and currently going [facility] No chiropractic therapy Does do home stretches that PT gave him Back Pain This is a chronic problem. 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 The problem occurs constantly. The problem has been gradually worsening since onset. The pain is present in the lumbar spine and thoracic spine (middle of back). The quality of the pain is described as aching (sharp pulsating pain, by the end of the day feels tight). The pain radiates to the right thigh, left thigh, left knee and right knee (anterior and posterior bilateral legs). The pain is at a severity of 7/10 (can increase with ADLs). The pain is moderate. The pain is The same all the time (worsens with activity). Exacerbated by: standing, walking, stairs, bending, lifting, twisting, pushing, pullilng, transitioning. Stiffness is present: na. Associated symptoms include numbness (BLE, RUE), tingling (BLE, RUE) and weakness (BLE). Pertinent negatives include no abdominal pain, chest pain or fever. Risk factors include obesity, sedentary lifestyle and lack of exercise. Treatments tried: ibuprofen, aleve, baclofen, flexeril, biofreeze, lidocaine patches with no relief, tramadol, percocet, tens unit with mild relief. Neck Pain This is a chronic problem. The current episode started more than 1 month ago. The problem occurs constantly. The problem has been gradually worsening. The pain is associated with nothing. The pain is present in the left side, midline and right side (in between shoulder blades). Quality: sore and tender. The pain is at a severity of 4/10. The pain is moderate. The symptoms are aggravated by position, twisting and bending. The pain is Same all the time. Stiffness is present In the morning (neck and shoulders). Associated symptoms include numbness (BLE, RUE), tingling (BLE, RUE) and weakness (BLE). Pertinent negatives include no chest pain or fever. Treatments tried: ibuprofen, aleve, baclofen, flexeril, biofreeze, lidocaine patches with no relief, tramadol, percocet, tens unit with mild relief. The effect of pain on patient's ADLS: Moderate Impairment. Past Medical History: Diagnosis Date Anxiety Depression Liver cyst Low back pain Q-fever pneumonia 2010 Past Surgical History: Procedure Laterality Date NOSE SURGERY 2007 TONSILLECTOMY Allergies Allergen Reactions Pneumovax-23 [Pneumococcal 23-[place] Vaccine] Prednisone Made irritable Family History Problem Relation Age of Onset Cancer Sister Cervical cancer Sister Cancer Maternal Grandmother Brain cancer Maternal Grandmother Stomach cancer Paternal Grandmother Social History Socioeconomic History Marital status: Spouse name: Not on file Number of children: Not on file Years of education: Not on file Highest education level: Not on file Occupational History Not on file Tobacco Use Smoking status: Former Types: Cigarettes, Vaping/E-cigarettes Smokeless tobacco: Current Vaping Use Vaping status: Every Day Substances: Nicotine Substance and Sexual Activity Alcohol use: Yes Comment: OCCASIONALLY Drug use: Never Sexual activity: Defer Other Topics Concern Not on file Social History Narrative Not on file Social Determinants of Health Financial Resource Strain: Not on file Food Insecurity: No Food Insecurity (05/15/2024) Hunger Screening Food Insecurity - Worry: Never True Food Insecurity - Inability: Never True Transportation Needs: Not on file Physical Activity: Not on file Stress: Not on file Social Connections: Not on file Interpersonal Safety: Unknown (10/03/2023) [facility] from [facility] Safety & Environment Fear of Current or Ex-Partner: Not on file Emotionally Abused: Not on file Physically Abused: Not on file Sexually Abused: Not on file Physically or Sexually Abused: Not on file Housing Instability: Not on file Review of Systems Constitutional: Negative. Negative for chills, fatigue and fever. HENT: Negative. Negative for congestion and sore throat. Eyes: Negative. Respiratory: Negative. Negative for cough and shortness of breath. Cardiovascular: Negative. Negative for chest pain. Gastrointestinal: Negative. Negative for abdominal pain. Endocrine: Negative. Genitourinary: Negative. Musculoskeletal: Positive for back pain and neck pain. Skin: Negative. Allergic/Immunologic: Negative. Neurological: Positive for tingling (BLE, RUE), weakness (BLE) and numbness (BLE, RUE). Hematological: Negative. Psychiatric/Behavioral: Negative. Vital Signs: BP 123/84 (BP Site: Left Arm, BP Postition: Sitting) Pulse 92 Resp 18 Ht 172.7 cm (5' 8 ) Wt 108.8 kg (239 lb 12.8 oz) SpO2 100% BMI 36.46 kg/m Physical Exam: GENERAL - Healthy patient that appears stated age. HEENT - Normocephalic / Atraumatic, Extraoccular movements intact, trachea midline, thyroid within normal limits. CV - pulse regular, Warm extremities with appropriate color of nailbeds. RESP - No obvious wheezing, No Shortness of Breath, No overexertion response to exam maneuvers. COORDINATION - remains intact. PSYCH - Alert and Oriented x4, Attentive and appropriate, constitutionally normal, displays normal mood and affect per situation, answered questions appropriately during examination, demonstrated appropriate attention during discussion, demonstrated appropriate cognitive reasoning and understanding of the medical condition by asking appropriate questions regarding the diagnosis and risks/benefits/alternatives of treatment modalities. No obvious deficits in memory, reasoning, or intellect. Lumbar: SKIN - No rashes or bruising in the area of the patient s pain. LYMPH NODES - demonstrate no obvious enlargement. EXTREMITIES - Lower extremities are warm, with minimal edema and palpable pulses. Tenderness to palpation noted in the lumbar spine and paraspinal musculature. Pain is elicited with flexion, extension, and lateral rotation of the lumbar spine. Range of motion is diminished with these motions due to pain. Facet palpation is noted to be painful and facet loading maneuvers elicit pain that is concordant with the patient s normal pain complaints. Some muscle spasm is noted in the overlying musculature. STRENGTH - noted to be 5 out of 5 all muscle groups bilateral lower extremities including muscles involving hip flexion and abduction, knee flexion and extension, as well as foot dorsiflexion and plantarflexion. No notable atrophy, fasciculations or spasm. SENSORY - No notable sensory deficits in the bilateral lower extremities to touch or pinprick in all dermatomal distributions. Straight Leg Raise is negative bilaterally. Gait is normal. Assessment/Treatment Plan: Janina was seen today for back pain and neck pain. Diagnoses and all orders for this visit: Lumbosacral spondylosis without myelopathy - Case request operating room: INJECTION BLOCK NERVE MEDIAL BRANCH: bilat L34 45 51 Bilateral L3/4,4/5, 5/1 Facet Injection/Medial Branch Block - under fluoroscopy It is hopeful that the described procedure will provide symptomatic pain relief. It is felt to be medically necessary noting that the patient has tried and failed more conservative modalities of therapy and this is the next most appropriate step. The procedure was described in detail to the patient as well as the potential benefits of pain reduction alongside risks of the procedure and alternatives. Risks were described as including, but not limited to bleeding, infection, nerve damage, spinal cord injury, paralysis, stroke, dural puncture headache, and medication reaction. The patient expressed understanding regarding the risks and benefits and wishes to proceed. Diagnostic facet injections and medial branch blocks should provide information to confirm that the noted facet arthropathy is the patient s most significant pain generator. If this provides significant but only temporary pain relief, the patient may in the future be a candidate for radiofrequency denervation of the facet joints to provide pain relief for approximately 1 year. Follow up 2 weeks after procedure The medications prescribed have been reviewed for medication interactions/contraindications and/or for upcoming procedures: continue current medication regimen without any changes. DISCUSSION: Treatment options discussed with patient and all questions answered to patient's satisfaction. Discussed the rules and regulations surrounding prescription of opioids and compliance at length. Failure to follow the rules and regulation will result in tapering and discontinuation of medications if applicable. Prescribed medication that requires intensive monitoring for toxicity We do not currently prescribe any controlled substance from this practice. Treatment plans discussed but not opted for at this time: Lumbar RFA. Patient would like to proceed with the current outlined treatment plan before moving forward with any other options. The spine model was demonstrated and MRI and CT was reviewed and used to explain the condition. Chronic conditions not treated during this visit that affected my overall medical decision making: Comorbidity- Obesity The patient does have a comorbid condition of obesity. This will be taken into account in that obesity will contribute to certain pain conditions. It can contribute to pain from degenerative disc disease as well as osteoarthritis of the joints. Many neuropathic symptoms are also amplified due to axial spine loading. Special benefits will also need to be given to procedures. Many procedures are technically more difficult in the light of severe obesity. I will also consider the possibility of undiagnosed obstructive sleep apnea (which often accompanies obesity) when prescribing any narcotic medications. I will weigh the risks and benefits and fully discuss them with the patient for these reasons. Comorbidity- Anxiety The patient describes a significant issue with anxiety. Although treatment is helpful with this regard, the patient is likely need special accommodation due to this condition. For this reason, necessary procedures will likely need to be performed under sedation to decrease procedural anxiety. Comorbidity- Depression The patient has an ongoing issue with depression and currently feels these symptoms are under control and further feels that appropriate pain management would also help these symptoms. The patient is optimistic about the treatment plan we have laid out. We will continue to monitor these symptoms and remain cogniscent that they may affect the patients perceived improvement from the treatment and willingness to pursue further treatment. At this time the patient appears to be mentally and emotionally stable to undergo procedural and medical therapy. If any warning signs become present, I may refer the patient to a mental health professional for further evaluation. OARRS: Reviewed. Scribe Statement: Scribed for and in the presence of WINSTON JACKSON by Krys Sevilla CNA. Provider Statement: I, WINSTON JACKSON, personally performed the services described in the documentation, as scribed by Krys Sevilla CNA in my presence, and it is both accurate and complete. Krys Sevilla CNA 05/15/24 1140 WINSTON Jackson 05/17/24 1228 documented in this encounter [facility] 05-15-2024 Instructions Krys SevillaMARIEL - 05/15/2024 10:00 AM EDT Facet Injection / Medial Branch Block (MBB) / Sacroiliac (SI) Joint Injection / Cluneal NB A facet injection and sacroiliac joint injection are injections of local anesthetic and steroid into a joint in the spine. A medial branch block is similar, but the medication is placed outside the joint space near the nerve that supplies the joint called the medial branch (steroid may or may not be used). You may require multiple injections depending upon how many joints are involved. How Long Will This Procedure Last? The extent and duration of pain relief may depend on the amount of inflammation and how many areas are involved. Other coexisting factors may be responsible for your pain. If your pain goes away for a short time, but then returns, you may be a candidate for radiofrequency ablation (RFA). Activity Be active. Attempt activities and movements that typically cause pain to see if it feels better while doing them. We will give you a pain diary. Please fill this out as directed by your nurse in pre-op. This will help your doctor determine the effectiveness of the injection, and how to proceed. Bring the pain diary with you to your follow-up appointment. Medications You should not take your pain medications for 4-6 hours before or after the injection in order to properly diagnose if the injection provides adequate relief. Resume your routine medications after your procedure. You may resume blood thinners per your regular schedule after the procedure. If you received sedation: If you received sedation for your procedure, you may feel sleepy or not yourself for several hours today. For the next 24 hours avoid activities that requires alertness or coordination. This includes: Driving or operating heavy machinery Using power tools Consuming alcohol Do not make important or complex decisions or sign legal documents in the next 24 hours. Other Instructions: If you feel severe pain at the injection site with swelling and redness, increased leg weakness, a fever of 101 or higher, headache (or worsening headache), changes in vision or urinary retention: Please call the office at , or have someone take you to the nearest emergency room. Tell the emergency room staff that you recently had a spine injection. A doctor must evaluate you for bleeding and injection complications. If you lose control over bowel, bladder, or legs: Go to the nearest emergency room. documented in this encounter [facility] WAK[facility] ? [facility] 04-30-2022 Note Procedure: CT of the abdomen [...] hemangiomas of the liver. Radiation Dose Estimate: CTDI(mGy):0.914114 / / / kVp:120.612985 / mAs:0.283168 / / / DLP(mGy-cm):4.392067Fctp Part: Abdomen CTDI(mGy):10.099379 / / / kVp:100.436843 / mAs:140.654748 / / / DLP(mGy-cm):477.416219Jhoh Part: Abdomen Final Dictated by: Brett Aguirre MD Dictated DT/TM: 04.30.2022 7:11 am Signed by: Brett Aguirre MD Signed (Electronic Signature): 04.30.2022 7:18 am (If Report Is Signed, Electronically Signed in Other Vendor System) [facility] 04-04-2022 Note Patient Education Ma terials Name: [...] a bandana, T-shirt, or other cloth. The [facility] has instructions on how to make a [...] caffeine, juices, tea, and soup. ? Taking vzvm-ola-rbpwsis (OTC) pain medicine. These are used to [...] hands often. ? (more content not included)... [facility] 04-04-2022 Note This is a Telephone Appointment [...] for COVID-19 at that time. May use eygr-llm-icxupqb Tylenol and Motrin for pain and/or fever relief. May use fyfk-vwm-rnoffmn Chloraseptic throat spray, lozenges, cool or warm [...] Negative 04/04/2022 15:43 EDT Electronically signed by Madelyn Monaco 04/04/22 16:22 EDT [facility] 01-18-2022 Note Procedure: CT of the abdomen [...] possibility of mesenteric adenitis. Radiation Dose Estimate: CTDI(mGy):0.847630 / / / kVp:120.174015 / mAs:0.666258 / / / DLP(mGy-cm):4.148064Reaq Part: Abdomen CTDI(mGy):13.296756 / / / kVp:100.763001 / mAs:187.034545 / / / DLP(mGy-cm):642.162942Mewj Part: Abdomen Final Dictated by: Jacinda Cheney MD Dictated DT/TM: 01.18.2022 9:27 am Signed by: Jacinda Cheney MD Signed (Electronic Signature): 01.18.2022 9:47 am (If Report Is Signed, Electronically Signed in Other Vendor System) [facility] 06-16-2021 Note Patient Education Ma terials Name: Janina Silva II Current Date: 06/16/2021 11:32:18 [facility] : 1990 The following sheet(s) are the Patient Education Leaflets for Shira YESSY Janina Boateng Ambulatory Abscess (Antibiotic Treatment Only) An abscess [...] to stop. ? You may use an netp-kms-ggowjxw pain medicine to control pain, unless another [...] ? Boil returns after getting better ? [id number] [employer] [place] [address]. All rights reserved. This information is not [...] # 28 tabs, 0 Refill(s), 06/23/21 11:26:00 [facility], Pharmacy: [address] Evaluation note Diagnosis Lumbosacral spondylosis without myelopathy- Primary Lumbosacral spondylosis without myelopathy- Primary Lumbosacral spondylosis without myelopathy [facility] Lumbosacral spondylosis without myelopathy- Primary Lumbosacral spondylosis without myelopathy- Primary Lumbosacral spondylosis without myelopathy [facility] Lumbosacral spondylosis without myelopathy- Primary Lumbosacral spondylosis without myelopathy- Primary Lumbosacral spondylosis without myelopathy Lumbosacral spondylosis without myelopathy [facility] filed[facility] this [facility] Summary Purpose Family History No Family History Records FoundNo Family History Records FoundNo Family History Records FoundNo Family History Records FoundNo Family History Records Found Advance Directives No Advanced Directives Records FoundNo Advanced Directives Records FoundNo Advanced Directives Records FoundNo Advanced Directives Records FoundNo Advanced Directives Records Found Reason for Referral Specialty Diagnoses / Procedures Referred By Sarabjit cervantes Referred To Contact Diagnoses Lumbosacral spondylosis without myelopathy Procedures Case request operating room: INJECTION BLOCK NERVE MEDIAL BRANCH: bilat L34 45 51 Yvonne Tsang, WINSTON [address] [place] [id number] Referral ID Status Reason Start Date Expiration Date V isits Requested Visits Authorized [id number] Pending Review 05/15/2024 05/15/2025 1 1 Additional Source Comments (unrecognized sect ion and content) No Status Records FoundNo Status Records FoundNo Status Records FoundNo Status Records FoundNo Status Records Found INFORMATION SOURCE (unrecogn ized section and content) DATE CREATED AUTHOR 01/26/2018 [facility] DATE CREATED AUTHOR AUTHOR'S ORGANIZ ATION 09/01/2019 [facility] DATE CREATED AUTHOR AUTHOR'S ORGANIZ ATION 05/10/2022 [facility] DATE CREATED AUTHOR AUTHOR'S ORGANIZ ATION 11/30/2023 [facility] DATE CREATED AUTHOR AUTHOR'S ORGANIZ ATION 08/19/2024 [facility] Reason for Visit (unrecogniz ed section and content) Reason Comments Back Pain Specialty Diagnoses / Procedures Referred By Conttessie t Referred To Contact Referral ID Status Reason Start Date Expiration Date Visits Re quested Visits Authorized [id number] 1 1 Reason Comments Back Pain Neck Pain Referral ID Status Reason Start Date Expiration Date Visits Re quested Visits Authorized [id number] 1 1 Reason Comments Back Pain Referral ID Status Reason Start Date Expiration Date Visits Re quested Visits Authorized [id number] 1 1 Care Teams (unrecognized sec tion and content) Night Warehouse Manager Relationship Specialty Start Date End Date No Pcp, [place] [address] PCP - General 08/03/23 Night Warehouse Manager Relationship Specialty Start Date End Date No Pcp, [place] [address] PCP - General 08/03/23 Night Warehouse Manager Relationship Specialty Start Date End Date No Pcp, [place] [address] PCP - General 08/03/23 Night Warehouse Manager Relationship Specialty Start Date End Date No Pcp, [place] [address] PCP - General 08/03/23 FOR RECORDS PERTAINING TO PATIENTS WHO ARE [...] BE BASED ON THE PRIMARY CLINICAL RECORDS. [email or web address] provides no warranty or guarantee of the accuracy or completeness of information in this document.
[2024-08-19] MEDS: ORPHENADRINE 60 MG/ 2 ML VIAL IM (16:22)
[2024-08-19] MEDS: METHYLPREDNISOLONE SOD SUCC PF 125 MG/2 ML VIAL IM (16:23)
[2024-08-19] MEDS: KETOROLAC TROMETHAMINE 60 MG/2 ML VIAL IM (16:24)
--- NOTE | 2024-08-19 16:25 | ED_ITS ---
HPI HPI - Back Pain/Injury General Chief Complaint: Back Pain/Injury Stated Complaint: Back Pain Time Seen by Provider: 08/19/24 15:55 Mode of arrival: walk-in History of Present Illness HPI Narrative: 34-year-old male presents here with chief complaint of exacerbation of chronic lower lumbar pain. Patient was seen at another ER last week and followed up with pain management. He states [facility] and [facility] have declined his need for a surgery at this time. He had an MRI 1 year ago. He denies any new injury or trauma. He is here for increased spasm and low lumbar pain. He is scheduled to have nerve ablations performed later this month. He denies loss of bowel or bladder function. He does appear uncomfortable. He states he was medicated and given a prescription of Chilcoot last week which has not helped to alleviate his symptoms. Related Data Home Medications ?Medication ?Instructions ?Recorded ?Confirmed cyclobenzaprine 5 mg tablet 5 mg PO BID 12/01/23 12/01/23 gabapentin 300 mg capsule 300 mg PO BID 12/01/23 12/01/23 paroxetine HCl 10 mg tablet 20 mg PO DAILY 12/01/23 12/01/23 prednisone 20 mg tablet 40 mg PO BID 12/01/23 12/01/23 trazodone 50 mg tablet 50 mg PO BEDTIME 12/01/23 12/01/23 Previous Rx's ?Medication ?Instructions ?Recorded oxycodone 5 mg tablet 5 mg PO Q6H PRN pain #20 tabs 12/02/23 cyclobenzaprine 10 mg tablet 10 mg PO TID 7 days #21 tabs 02/22/24 oxycodone-acetaminophen 5 mg-325 1 tab PO Q6H #14 tabs 02/22/24 mg tablet (Percocet) Allergies Allergy/AdvReac Type Severity Reaction Status Date / Time pneumococcal vaccine Allergy Unknown Verified 09/12/23 10:21 Opioid HPI Opioid Management Most Recent Opioid Data: Last Pain Scale 10 08/19/24 16:24 08/19/24 Last Pain Intensity 6 12/02/23 10:20 12/02/23 Last MAR Pain Assessment 08/19/24 16:24 Last ORT Total Score 1 12/01/23 18:37 12/01/23 Last ORT Risk Category Low Risk 12/01/23 18:37 12/01/23 Review of Systems ROS Narrative All Systems are negative except as noted/marked.All systems reviewed and otherwise negative [facility] Medical History (Updated 08/19/24 @ 16:40 by Ally Pineda) Depression ?F32.A - Depression, unspecified (ICD-10) Impaired mobility ?Z74.09 - Other reduced mobility (ICD-10) Intractable low back pain ?M54.59 - Other low back pain (ICD-10) Surgical History (Updated 12/01/23 @ 18:50 by Jesse Schwartz) H/O repair of rotator cuff ?Z98.890 - Other specified postprocedural states (ICD-10) Hx of nasal septoplasty ?Z98.890 - Other specified postprocedural states (ICD-10) Hx of tonsillectomy ?Z90.89 - Acquired absence of other organs (ICD-10) Social History Highest level of school completed/degree received: high school graduate Little interest or pleasure in doing things: not at all Feeling down, depressed, or hopeless: not at all Exam Narrative Exam Narrative: Nurses note and vital signs reviewed and patient is not hypoxic. General: The patient appears well and in no apparent distress. Patient is resting comfortably on cart. Skin: Warm, dry, no pallor noted. There is no rash noted. Head: Normocephalic, atraumatic Eye: Normal conjunctiva, no drainage, EOMI. PERRL Ears, Nose, Mouth, and Throat: oral mucosa is moist. Nares patent. Mouth without vesicles. Ear canals patent. Tm's without Erythema Cardiovascular: Regular Rate and Rhythm Respiratory: Patient is in no distress, no accessory muscle use, lungs are clear to auscultation, no wheezing, rales or rhonchi Back: non-tender, no CVA tenderness bilaterally to percussion. GI: Normal bowel sounds, no tenderness to palpation, no masses appreciated. No rebound, guarding, or rigidity noted. Musculoskeletal: The patient has no evidence of calf tenderness, no pitting edema, symmetrical pulses noted bilaterally Neurological: A&O x4, normal speech Psychiatric: Cooperative Constitutional Vital Signs, click to edit/add: Last Vital Signs Temp 98.3 F 08/19/24 15:53 Pulse 98 H 08/19/24 15:53 Resp 18 08/19/24 15:53 BP 148/94 H 08/19/24 15:53 Pulse Ox 98 08/19/24 15:53 O2 Del Method Room Air 08/19/24 15:53 Course Vital Signs Vital signs: Vital Signs Temperature 98.3 F 08/19/24 15:53 Pulse Rate 98 H 08/19/24 15:53 Respiratory Rate 18 08/19/24 15:53 Blood Pressure 148/94 H 08/19/24 15:53 Pulse Oximetry 98 08/19/24 15:53 Oxygen Delivery Method Room Air 08/19/24 15:53 Temperature 98.3 F 08/19/24 15:53 Pulse Rate 98 H 08/19/24 15:53 Respiratory Rate 18 08/19/24 15:53 Blood Pressure 148/94 H 08/19/24 15:53 Pulse Oximetry 98 08/19/24 15:53 Oxygen Delivery Method Room Air 08/19/24 15:53 MDM - Back Pain/Injury MDM Narrative Medical decision making narrative: 34-year-old male presents here with chief complaint of exacerbation of chronic lower lumbar pain. Patient was seen at another ER last week and followed up with pain management. He states [facility] and they have declined his need for a surgery at this time. He had an MRI 1 year ago. He denies any new injury or trauma. He is here for increased spasm and low lumbar pain. He is scheduled to have nerve ablations performed later this month. He denies loss of bowel or bladder function. He does appear uncomfortable. He states he was medicated and given a prescription of Chilcoot last week which has not helped to alleviate his symptoms. Patient presents to the emergency room chief complaint exacerbation of lower lumbar pain. Patient has been seeing pain management for his back. [facility]. I did suggest to the patient to ask for physical therapy or pool therapy may be help alleviate his symptoms I also talked about inversion tables. Patient shows no signs of quad equina. He is uncomfortable. Medicated here with Toradol Solu-Medrol and Norflex. Patient was recently given a prescription of Chilcoot. He is encouraged to call and follow[facility]up with the [facility] tomorrow. Differential Diagnosis Differential diagnosis: Likely lumbar radiculopathy and strain of lumbar region Medical Records Attestation: I reviewed the patient's medical records. Discharge Plan Discharge Chief Complaint: Back Pain/Injury Clinical Impression: Chronic lumbar pain Patient Disposition: Home, Self-Care Time of Disposition Decision: 16:39 Condition: Good Prescriptions / Home Meds: No Action trazodone 50 mg tablet 50 mg PO BEDTIME paroxetine HCl 10 mg tablet 20 mg PO DAILY cyclobenzaprine 5 mg tablet 5 mg PO BID gabapentin 300 mg capsule 300 mg PO BID prednisone 20 mg tablet 40 mg PO BID oxycodone 5 mg tablet 5 mg PO Q6H PRN (Reason: pain) Qty: 20 0RF Rx Instructions: Take 1 to 2 tabs every 6 hrs as needed for pain. cyclobenzaprine 10 mg tablet 10 mg PO TID 7 Days Qty: 21 0RF oxycodone-acetaminophen [Percocet] 5-325 mg tablet 1 tab PO Q6H Qty: 14 0RF Print Language: Divehi Instructions: Pain Management (ED), Chronic Pain (ED) Additional Instructions: please follow up with pain management as discussed Referrals: Physician,Non-Staff, MD [Primary Care Provider] - 1 week
== END 2024-08-19 16:57 | disposition home or self-care (01) ==
PROVIDERS: Emergency Provider Emergency Medicine
DX: M54.50 Low back pain, unspecified (principal); G89.29 Other chronic pain
CPT/HCPCS: 96372; 99284; J1885; J2360; J2919